=== PATIENT | male | born 1950 | race Asian ===

== ENCOUNTER 2021-10-18 17:24 | Inpatient (IN) | payer MEDICARE, OTHER ==
[~2021-10-18] VITALS: Ht 162.6 cm; Wt 59.0 kg
--- NOTE | 2021-10-18 17:35 | NUR ---
PT [id number] FR [facility] C/O SOB LOW 80S SATURATION. AT THIS TIME PT SATTING 92% ON 7LPM, TACHY AT 140. TRACH PATENT AND INTACT. GTUBE PATENT AND INTACT. PT AWAKE A/OX3. SAFETY MEASURES IN PLACE. RT AT PT'S BEDSIDE
--- NOTE | 2021-10-18 17:39 | NUR ---
COVID ANTIGEN AND PCR SWABS DONE AND SENT TO THE LAB
--- NOTE | 2021-10-18 17:39 | NUR ---
PHLEBATOMIST AT THE BEDSIDE
--- NOTE | 2021-10-18 17:39 | NUR ---
CHEST X-RAY TECH AT THE BEDSIDE
--- NOTE | 2021-10-18 17:40 | NUR ---
ALGORITHM DESIGN ENGINEER RFA #20G S/L; PATENT AND INTACT. INITIATED LAC #18G S/L; PATENT AND INTACT.
--- NOTE | 2021-10-18 17:41 | NUR ---
RECTAL TEMP 104.1. COOLING MEASURES IN PLACE. NOTIFIED FELICIANO ALEX
[2021-10-18] MEDS ORDERED: ACETAMINOPHEN 650 MG/SUPP.RECT RC ONE ×3 (17:44→18:00)
--- NOTE | 2021-10-18 17:45 | NUR ---
RT AT PT'S BEDSIDE. PT PUT PT MECH VENT SETTINGS TOLERATING AT 99%. TV 450. PEAK 6. FIO2 40%. PEEP 5 PER FELICIANO ALEX NOT TO PUT PT ON TRACH CUFF.
--- NOTE | 2021-10-18 17:45 | NUR ---
RT PATIENT ARRIVED TO ER VIA BVM FROM TRANSPORT TEAM. PATIENT PLACED ON VENT PER MD WIGGINS ORDER WITH FOLLOWING SETTINGS: AC 16, VT 450, 40%, +5. RT INFORMED MD THAT PATIENT IS CURRENTLY ON A CUFFLESS TRACH. PER MD, NO NEED TO CHANGE TO CUFFED TRACH AT THIS TIME. ROXI CASTANEDA NOTIFIED AND AWARE. SPO2 92%, HR 129. WILL CONTINUE TO MONITOR THE PATIENT. Addendum: 10/18/21 at 1824 by ELI SNOWDEN RT Amended: Links added.
[2021-10-18 17:51] LABS: BASOPHILS % (AUTO) 0.1 % (0.0-2.0); EOSINOPHILS % (AUTO) 0.6 % (0.0-6.0); HEMATOCRIT 30 % (39-51); HEMOGLOBIN 9.3 g/dL (13.5-17.5); LYMPHOCYTES # (AUTO) 0.2 K/uL (0.8-4.8); LYMPHOCYTES % (AUTO) 2.4 % (20.0-44.0); MEAN CORPUSCULAR HGB CONC 31 g/dl (31.0-36.0); MEAN CORPUSCULAR VOLUME 93 fL (80-96); MONOCYTES # (AUTO) 0.2 K/uL (0.1-1.30); MONOCYTES % (AUTO) 2.5 % (2.0-12.0); NEUTROPHILS # (AUTO) 7.1 K/uL (1.8-8.9); NEUTROPHILS % (AUTO) 94.4 % (43.0-81.0); PLATELET COUNT (AUTO) 312 K/uL (150-450); RED BLOOD CELL COUNT(AUTO) 3.25 MIL/uL (4.5-6.0); WHITE BLOOD COUNT (AUTO) 7.5 K/uL (4.3-11.0)
[2021-10-18] MEDS ORDERED: PIPERACILLIN /TAZOBACTAM 3.375 G VIAL IV ONE ×2 (17:55→22:35)
[2021-10-18] MEDS ORDERED: VANCOMYCIN 1 GM in IV D5W 250 ML IV ONE (18:00)
[2021-10-18] MEDS ORDERED: IV NS 0.9% 1,000 ML BAG IV ONE (18:00)
[2021-10-18] MEDS ORDERED: PIPERACILLIN /TAZOBACTAM 3.375 G in IV D5W 50 ML IV ONE (18:00)
[2021-10-18 18:03] LABS: CALCIUM, SERUM 8.7 mg/dL (8.5-10.1); CARBON DIOXIDE 25 mmol/L (21-32); CHLORIDE 112 mmol/L (98-107); CREATININE 1.7 mg/dL (0.6-1.3); GLUCOSE 294 mg/dL (74-106); POTASSIUM 3.7 mmol/L (3.5-5.1); SODIUM SERUM 155 mmol/L (136-145); UREA NITROGEN, BLOOD 58 mg/dL (7-18)
[2021-10-18 18:09] LABS: ALANINE AMINOTRANSFERASE 19 U/L (12-78); ALBUMIN 2.3 g/dL (3.4-5.0); ALKALINE PHOSPHATASE 165 U/L (46-116); ASPARTATE AMINOTRANSFERASE 22 U/L (15-37); BILIRUBIN,DIRECT 0.3 mg/dL (0.0-0.2); BILIRUBIN,TOTAL 0.9 mg/dL (0.2-1.0); TOTAL PROTEIN, SERUM 8.4 g/dL (6.4-8.2)
--- NOTE | 2021-10-18 18:12 | NUR ---
DR. WIGGINS GAVE ORDERS FOR F/C. INITIATED F/C 16FR WITH URINE OUTPUT; PATENT AND INTACT. URINE COLLECTED AND SENT TO LAB
--- NOTE | 2021-10-18 18:22 | NUR ---
LACTIC ACID 10.3; FELICIANO ALEX NOTIFIED
--- NOTE | 2021-10-18 18:48 | NUR ---
PAGED [facility].
[2021-10-18] MEDS ORDERED: MAG HYDROX/AL HYDROX/SIMETH 30 ML UDC PO PRN (21:00)
[2021-10-18] MEDS ORDERED: IV NS 0.9% 1,000 ML IV PRN (21:00)
[2021-10-18] MEDS ORDERED: MAGNESIUM HYDROXIDE 30 ML UDC PO PRN (21:00)
[2021-10-18] MEDS ORDERED: Z GUARD REMEDY 4 OZ OINT TP PRN (21:00)
[2021-10-18] MEDS ORDERED: ONDANSETRON HCL/PF 4 MG/2 ML VIAL IVP PRN (21:00)
--- NOTE | 2021-10-18 21:19 | NUR ---
FRANKI 109
--- NOTE | 2021-10-18 21:20 | NUR ---
US TECH AT PT'S BEDSIDE
[2021-10-18 21:24] LABS: BILIRUBIN,URINE NEGATIVE (NEGATIVE); COLOR,URINE YELLOW (YELLOW); LEUKOCYTE ESTERASE ,URINE TRACE (NEGATIVE); NITRITE, URINE NEGATIVE (NEGATIVE); PROTEIN,URINE 30 mg/dl (NEGATIVE); UGLUCOSE NEGATIVE (NEGATIVE)
[2021-10-18 21:30] LABS: BACTERIA,URINE Many /HPF (None Seen); SQUAMOUS EPITHELIAL CELL,UR Few /HPF (None Seen)
[2021-10-18] MEDS ORDERED: DEXTROSE 50%-WATER 50 ML DISP.SYRIN IV PRN (21:30)
--- NOTE | 2021-10-18 21:31 | NUR ---
RN NOTES CALLED ER TO GET ADMISSION REPORT. ABSORBER OPERATOR NOT YET AVAILABLE. WILL WAIT FOR CALLBACK
--- NOTE | 2021-10-18 21:41 | NUR ---
LACTIC ACID 7.5; [employer] NOTIFIED
--- NOTE | 2021-10-18 21:45 | NUR ---
RN NOTES RECEIVED ER ADMISSION REPORT FROM ROXI RABAGO. ALL PERTINENT ADMISSION INFO REGARDING PT NOTED. WILL WAIT FOR PT TO BE TRANSFERRED TO UNIT AND ADDRESS NEEDS ACCORDINGLY. SIGNAL OPERATOR TECHNICAL MADE AWARE.
--- NOTE | 2021-10-18 21:46 | NUR ---
REPORT GIVEN TO ANJEL DIANE FOR LAURA
[2021-10-18] MEDS ORDERED: HEPARIN SODIUM, PORCINE 5000 UNITS/1 ML VIAL ONE (21:48)
[2021-10-18 21:51] LABS: IRON, SERUM 19 ug/dl (50-175); TOTAL IRON BINDING CAPACITY 192 ug/dl (250-450)
[2021-10-18] MEDS: HEPARIN SODIUM, PORCINE 5000 UNITS/1 ML VIAL SQ SCH (21:51)
--- NOTE | 2021-10-18 22:15 | NUR ---
RN NOTES RECEIVED PT FROM ER VIA LUISARGRISEL ACCOMPANIED BY 2 ER STAFF AND TRANSFERRED TO BED VIA 2 PERSON ASSIST. PT IS A/OX2; NON VERBAL; PT ON MECHANICAL VENT; SETTINGS PRESCRIBED WITH RESPIRATIONS EVEN AND UNLABORED. COMPREHENSIVE PHYSICAL ASSESSMENT AND PATIENT CARE DONE. CALL LIGHT WITHIN REACH, SAFETY MEASURES AND ISOLATION PRECAUTION IN PLACE, WILL CONTINUE MONITOR AND ASSESS THROUGHOUT THE SHIFT. WILL CARRY OUT MD ORDERS ACCORDINGLY. COUNSELOR EDUCATION PROFESSOR MADE AWARE.
--- NOTE | 2021-10-18 22:15 | NUR ---
PT TRANSFERED PER ACLS PROTOCOL
--- NOTE | 2021-10-18 23:00 | NUR ---
RN NOTES NOTED PT'S TEMP IS AT 102@2300 (INITIAL V/S UPON ADMISSION); PRN MEDICATION WILL BE GIVEN AND COOLING MEASURES. ENDO TECH MADE AWARE. WILL CONTINUE TO MONITOR AND ASSESS THROUGHOUT THE SHIFT. Addendum: 10/19/21 at 0043 by JOSE MUNOZ RN [id number] PT'S TEMP WENT DOWN TO 100.8; WILL CONTINUE TO PROVIDE COOLING MEASURES AND TO ASSESS FOR ANY CHANGES. AT THE SAME TIME NOTED PT'S BP @83/35. NOTIFIED AVERY (CHERYL CALIX NP) AND SECURED ORDER FOR 500ML NS BOLUS AND INCREASED CURRENT IVF OF NS FROM 75/CCHR TO 100CC/HR. ENDO TECH MADE AWARE. WILL CARRY OUT MD ORDER.
[2021-10-18 23:02] VITALS: BP 102/68
[2021-10-18] MEDS: ZOSYN IVPB 3.375 G in IV D5W 50ml IV SCH (23:34)
[2021-10-18] MEDS: ACETAMINOPHEN 325 MG TABLET PO PRN (23:34)
[2021-10-19] VITALS (43 sets, daily range): BP systolic 75–136; BP diastolic 29–90
[2021-10-19] MEDS ORDERED: IV NS 0.9% 1,000 ML IV PRN (00:29)
[2021-10-19] MEDS ORDERED: IV NS 0.9% 500 ML IV ONE (00:30)
[2021-10-19] MEDS: BLOOD SUGAR DIAGNOSTIC 1 EACH STRIP IN SCH ×6 (00:50→21:18)
[2021-10-19] MEDS: INSULIN REGULAR, HUMAN 100 UNIT/ML 3 ML VIAL SQ PRN ×5 (00:59→21:20)
--- NOTE | 2021-10-19 05:23 | NUR ---
RN NOTES CALLED SUZY MERAZ @ [phone] S/W SHANI VERIFIED FOR PT'S CURRENT FEEDING. SHE SAID ITS GLUCERNA 1.5@55CC/HR. RN ACKNOWLEDGED. COLD MILL SUPERVISOR MADE AWARE. AZUCENA ALEX NOTIFIED (CHERYL CALIX NP) ABOUT DIET INFO FROM FACILITY. AWAITING RESPONSE. Addendum: 10/19/21 at 0540 by JOSE MUNOZ RN -AZUCENA ALEX (FIORELLA CALIX) ORDERED TUBE FEEDING OF GLUCERNA 1.2 @55CC/HR. COLD MILL SUPERVISOR MADE AWARE.
[2021-10-19] MEDS ORDERED: PIPERACILLIN /TAZOBACTAM 3.375 G VIAL IV ONE (05:28)
[2021-10-19 05:31] LABS: ABG BASE EXCESS 0.5 mmol/L; ABG OXYGEN SATURATION 88.7 % (92.0-98.5); ABG PCO2 30.9 mmHg (35.0-45.0); ABG PH 7.498 (7.350-7.450); ABG PO2 57.7 mmHg (75.0-100.0); COHb 0.3 % (0.5-1.5); MetHb 0.1 % (0.0-1.5); O2Hb 88.3 % (94.0-97.0); SITE, ABG Right Brachial; VENT MODE, BG AC 16 450 40% +5
[2021-10-19] MEDS: ZOSYN IVPB 3.375 G in IV D5W 50ml IV SCH ×3 (05:55→16:57)
[2021-10-19] MEDS ORDERED: GLUCERNA 1.5 1,000 ML BOTTLE GT PRN (06:00)
--- NOTE | 2021-10-19 06:00 | NUR ---
RN NOTES ABG RESULT SENT TO AZUCENA ALEX (FIORELLA CALIX) ADVISED THAT PER RT RECOMMENDATION PER ABG RESULT PT WILL BENEFITED IF FIO2 INCREASED FROM 40 TO 50%. AZUCENA ALEX ACKNOWLEDGED AND AGREED. WILL INFORM RT TO MAKE CHANGES. CHASSIS WIRER MADE AWARE.
--- NOTE | 2021-10-19 07:06 | NUR ---
RN CLOSING NOTE: PATIENT REMAINS IN ROOM IN NO SIGNS OF RESPIRATORY DISTRESS, PATIENT STILL ON MECH VENT; SETTINGS PRESCRIBED;TOLERATING WELL SATURATING @ >92% SP02. BP STILL RUNNING LOW BUT >90 SBP WILL NEED TO KEEP ON MONITOR. SAFETY MEASURES IMPLEMENTED, BED IN LOWEST POSITION, LOCKED, SIDE RAILS UP, CALL LIGHT WITHIN REACH. ALL NEEDS AND ORDERS ADDRESSED DURING THE SHIFT. IV ACCESS MAINTAINED INTACT, SECURED AND FLUSHING WELL. ALL DUE MEDS GIVEN ORDERED & SCHEDULED ; PATIENT TOLERATED WELL. PATIENT KEPT CLEAN AND COMFORTABLE WITHIN THE SHIFT. PATIENT ENDORSED TO INCOMING SHIFT RN WITH STABLE VITAL SIGN AND FOR CONTINUITY OF CARE.
--- NOTE | 2021-10-19 07:46 | NUR ---
FRANKI RN NOTE PATIENT IN BED,WITH TRACH TO VENT SETTING ORDERED, SATURATION 96% AT THIS TIME,ON TELE MONITOR SR 88, LT AC HL INTACT ON IVF ORDERED, WILL CONT TO MONITOR WITH SLIGHT SOB NOTED, BED IN LOWEST AND LOCKED POSITION , CALL LIGHT WITHIN REACH
--- NOTE | 2021-10-19 08:30 | NUR ---
FRANKI RN NOTE RT AT BEDSIDE ,TRACH CHANGED PATIENT BECOME EASILY DESATURATION 88%
[2021-10-19 08:48] LABS: ALBUMIN 1.6 g/dL (3.4-5.0); BILIRUBIN,TOTAL 0.8 mg/dL (0.2-1.0); CREATININE 1.2 mg/dL (0.6-1.3); MAGNESIUM 2.3 mg/dL (1.8-2.4); PHOSPHORUS 2.9 mg/dL (2.5-4.9); POTASSIUM 3.1 mmol/L (3.5-5.1); TOTAL PROTEIN, SERUM 5.9 g/dL (6.4-8.2)
[2021-10-19] MEDS: PANTOPRAZOLE 40 MG VIAL IV SCH (08:49)
[2021-10-19] MEDS: LEVOTHYROXINE SODIUM 100 MCG TABLET PO SCH (08:49)
--- NOTE | 2021-10-19 08:55 | NUR ---
RT NOTE PT TRACH CHANGED FROM PORTEX 7 CUFFLESS TO PORTEX 7 CUFFED WITH PER MD PELMIKO ORDER, WITH NO COMPLICATIONS NOTED. RN NIRALI BEDSIDE THROUGHOUT PROCEDURE. SX PRE / POST PROCEDURE. NO BLEEDING NOTED. BILATERAL CHEST RISE AND BREATH SOUNDS NOTED. MAINTENANCE PIPEFITTER DONE. AMBU BAG BEDSIDE. NO SOB NOTED AT THIS TIME.
[2021-10-19 08:56] LABS: THYROID STIMULATING HORMONE 12.907 uIU/mL (0.358-3.74)
[2021-10-19] MEDS: HEPARIN SODIUM, PORCINE 5000 UNITS/1 ML VIAL SQ SCH (09:00)
[2021-10-19 09:16] LABS: EOSINOPHILS % (AUTO) 0.2 % (0.0-6.0); HEMATOCRIT 21 % (39-51); LYMPHOCYTES # (AUTO) 0.2 K/uL (0.8-4.8); LYMPHOCYTES % (AUTO) 2.4 % (20.0-44.0); MEAN CORPUSCULAR HGB CONC 32 g/dl (31.0-36.0); MEAN CORPUSCULAR VOLUME 93 fL (80-96); MONOCYTES # (AUTO) 0.2 K/uL (0.1-1.30); MONOCYTES % (AUTO) 1.7 % (2.0-12.0); NEUTROPHILS # (AUTO) 8.7 K/uL (1.8-8.9); NEUTROPHILS % (AUTO) 95.7 % (43.0-81.0); PLATELET COUNT (AUTO) 225 K/uL (150-450); RED BLOOD CELL COUNT(AUTO) 2.24 MIL/uL (4.5-6.0); WHITE BLOOD COUNT (AUTO) 9.1 K/uL (4.3-11.0)
[2021-10-19] MEDS ORDERED: HYDR-3973 GT (09:37)
[2021-10-19] MEDS ORDERED: NUT.237L31 GT (09:37)
[2021-10-19] MEDS ORDERED: OXYC10TA49 GT (09:37)
[2021-10-19] MEDS ORDERED: POLY17PO4 PO (09:37)
[2021-10-19] MEDS ORDERED: CHLO473M3 MM (09:37)
[2021-10-19] MEDS ORDERED: LEVO25TA7 GT (09:37)
[2021-10-19] MEDS ORDERED: CIPR7.5D9 INH (09:37)
[2021-10-19] MEDS ORDERED: IPRA4AER IH (09:37)
--- NOTE | 2021-10-19 09:49 | NUR ---
FRANKI DIANE NOTEV TRACH SUCTION BLOODY TINGE DRAINAGE NOTED WILL REPORT TO Addendum: 10/19/21 at 0952 by NIRALI THOMAS RN WILL HOLD HEPARIN AT THIS TIME DE DUE TU BLOODY DRAINAGE NOTED FROM TRACH WHILE SUCTION , WILL REPORT TO
[2021-10-19 09:59] LABS: HEMOGLOBIN 6.6 g/dL (13.5-17.5)
--- NOTE | 2021-10-19 10:00 | NUR ---
FRANKI RN NOTE DR CHAVEZ AT BEDSIDE AWARE THAT PATIENT HAS DRAINAGE FROM TRACH OK TO HOLD HEPARIN THIS TIME ALSO REPORTED TO DR CHAVEZ THAT AGITATED AND TRYING TO REMOVE TRACH AND ALL LINES ALSO C\O PAIN .REPORTED TO DR CHAVEZ STATED THAT WILL CHECK IT OUT
--- NOTE | 2021-10-19 10:04 | NUR ---
FRANKI RN NOTE OT AT BEDSIDE OT EVAL DONE
--- NOTE | 2021-10-19 10:13 | NUR ---
FRANKI RN NOTE NOTED PATIENT BECOME AGITATED AND TRYING TO REMOVE TRACH AND IV LINES AND ALL OTHER TUBES , FACE TO FACE ASSESSMENT DONE , CALLED TO DR CHILANGO YANES TO PLACE SOFT RESTRAIN, WILL CALL DAUGHTER TO INFORM
[2021-10-19] MEDS: IV D5W 1,000 ML IV PRN (10:22)
[2021-10-19] MEDS: LORAZEPAM INJ 2 MG/ML VIAL IVP PRN ×2 (10:29→19:41)
--- NOTE | 2021-10-19 10:31 | NUR ---
nan rn note still agitated and trying to remove trach ,Ativan 1 mg ivp given, bp 90/52 saturation 98% ,will monitor closely
--- NOTE | 2021-10-19 10:31 | NUR ---
FRANKI rnnote per dr varma ok to do i unit prbc and [place] 1 tab and Tylenol prn also spoke with daughter nelson,consent obtained for blood transfusion, dr varma aware that na 156
--- NOTE | 2021-10-19 10:56 | NUR ---
nan rn note patint agitated ad remove trach and iv lines dr avani jack ok to place soft restraini spoke with ambrosio dunne to place will f\u Addendum: 10/19/21 at 1725 by NIRALI THOMAS RN [id number] agitated and trying to remove trach and iv lines dr avani dunne to place soft restraint, spoke with daughter nelson ok to place ,will f\u
[2021-10-19] MEDS ORDERED: POLYETHYLENE GLYCOL 3350 17 GM POWD.PACK PO PRN (11:00)
[2021-10-19] MEDS: GLUCERNA 1.2 1,000 ML BOTTLE GT PRN (11:03)
[2021-10-19] MEDS ORDERED: HYDROCODONE/APAP 10/325MG TABLET PO ONE (11:30)
[2021-10-19] MEDS: VANCOMYCIN 0.75 GM in IV D5W 250 ML IV SCH ×2 (11:32→23:50)
[2021-10-19] MEDS: ACETAMINOPHEN 650 MG/20.3 ML UDC NG PRN ×2 (11:34→18:19)
--- NOTE | 2021-10-19 12:12 | NUR ---
nan rn note dr varma notified that bp Addendum: 10/19/21 at 1228 by NIRALI THOMAS RN per dr avani kenney aware that bp Addendum: 10/19/21 at 1309 by NIRALI THOMAS RN BP
--- NOTE | 2021-10-19 12:38 | NUR ---
FILM SORTER NOTE 2 ED ECHO DONE, REPORTED TO DR CHILANGO Elizalde 99.9 TYLENOL VIA G TUBE GIVEN Addendum: 10/19/21 at 1301 by NIRALI THOMAS RN DR CHILANGO YANES TO START G TUBE FEEDIN GAT 55 ML PER AND IVF AT150 ML PER HOUR WILL F\U
--- NOTE | 2021-10-19 13:58 | NUR ---
nan rn note h called blood bank no blood ready yet will f\u
[2021-10-19] MEDS: SOD FERRIC GLUC 125 MG in IV NS 0.9% 100 ML IV SCH (14:01)
--- NOTE | 2021-10-19 14:38 | NUR ---
CLINICAL THERAPIST NOTE DR CHAO MOLD SHIFTER AT BEDSIDE UPDATED PATIENT CONDITION, AWARE THAT NA 156 OK TO CONT D5W IVF ORDERED Addendum: 10/19/21 at 1450 by NIRALI THOMAS RN STOOL FOR OB COLLECTED
--- NOTE | 2021-10-19 15:00 | NUR ---
FRANKI RN NOTE NEW HL INSERTED ON RT WRIST MYKE 18 WITH GOOD BLOOD RETURN
--- NOTE | 2021-10-19 15:46 | NUR ---
FRANKI RN NOTE CALLED TO LAB NO BLOOD READY YET
[2021-10-19 15:48] LABS: BAND % (MANUAL) 28 % (0.0-5.0); LYMPHOCYTES % (MANUAL) 6 % (16-48); NEUTROPHILS % (MANUAL) 66 (42-76)
--- NOTE | 2021-10-19 15:58 | NUR ---
BELT AND LINK ASSEMBLY SUPERVISOR NOTE CALLED TO DR KEE RN EDI PROGRAMMER ANALYST NOTIFIED THAT BP 74/42 ON ARM AND ON LEG 82/36, ORDERED TO TRANSFER TO ICU WITH LEVOPHED DRIP ,ORDER CARRIED OUT, CALLED TO CHARGE NURSE NOTIFIED THAT PATINT NEED TO TRANSFER TO ICU ,WILL F\U
[2021-10-19] MEDS ORDERED: NOREPINEPHRINE 8 MG in IV NS 0.9% 242 ML IV PRN (16:00)
--- NOTE | 2021-10-19 16:30 | NUR ---
nan rn note transferred to icu as ordered ,report given to william ,transferred by acls protocol
--- NOTE | 2021-10-19 16:40 | NUR ---
RT NOTE PT TRANSFERRED TO ICU WITH NO COMPLICATIONS.
--- NOTE | 2021-10-19 16:45 | NUR ---
curriculum developer note called daughter nelson notified that patient transferred to icu
[2021-10-19] MEDS: CHLORHEXIDINE GLUCONATE 15 ML UDC MM SCH (16:57)
--- NOTE | 2021-10-19 17:00 | NUR ---
RN NOTES PATIENT TRANSFERRED TO THE ICU ON DX OF HYPOTENSION 88/49, P-80, LEVOPHED WAS ORDERED VIA RN MELINA, DAPHNE ADMINISTER PER PROTOCOL. BS-161 MG/DL COVERAGE GIVEN, RUNNING GLUCERNA 1.2 @40 ML/HR INTACT, VIA GT, PATIENT TRACHEA /VENT DEPENDENT, SOFT RESTRAIN BILATERAL WRIST RECHECKED CIRCULATION. HEADLEY DRAINING VIA GRAVITY.
[2021-10-19] MEDS: NOREPINEPHRINE 8 MG in IV NS 0.9% 242 ML IV PRN (18:01)
--- NOTE | 2021-10-19 18:07 | NUR ---
rn notes started Levophed at this time0.1 mcg/kg/hr, bp 77/53, p-90, bs-161 mg/dl, t-98.3F, due medication administered, patient awake, talking sign language for pain. will follow up.
--- NOTE | 2021-10-19 18:20 | NUR ---
RN NOTES ADMINISTERED TYLENOL 650 MG VIA NG TUBE FOR PAIN, BS-161 MG/DL COVERAGE GIVEN. KEEP HOB ELEVATED FOR ASPIRATION PRECAUTION. INFUSING GLUCERNA @50 ML/HR TOLERATED GOAL IS 55CC/HR.
--- NOTE | 2021-10-19 19:00 | NUR ---
RN NOTE REPORT RECEIVED FROM ABDULLAHI DIANE, PATIENT IN BED, AO X 2-3, NON VERBAL BUT NODS HEAD. IN NO S/SX OF ACUTE DISTRESS AT THIS TIME. ON TRACH TO MECHANICAL VENT WITH SETTINGS PRESCRIBED, SATURATION AT 97%, ST ON THE MONITOR, HR IS 104. NOTED IV SITE AT R WRIST 18G, AND L AC 18G, BOTH PATENT AND FLUSHING WELL, NO S/S OF INFECTION OR INFILTRATION. NOTED GTUBE INTACT POSITIVE PLACEMENT NOTED, NO RESIDUAL, WITH TUBE FEEDING OF GLUCERNA AT 55 ML/HR. HEADLEY CATHETER CONNECTED TO URINE BAG IN PLACE, DRAINING TO A CLEAR, YELLOW URINE. B SOFT WRIST RESTRAINTS IN PLACE PER MD ORDER, SKIN AND CIRCULATION WAS CHECKED. SAFETY MEASURES IMPLEMENTED. PATIENT BED ALARM IS ON. HEAD OF BED ELEVATED. BED IS LOCKED, IN LOWEST POSITION AND SIDE RAILS UP. CALL LIGHT WITHIN REACH OF THE PATIENT. WILL CONTINUE TO MONITOR AND REASSESS FOR ANY CHANGES.
[2021-10-19 23:56] LABS: OCCULT BLOOD STOOL NEGATIVE (NEGATIVE)
[2021-10-20] VITALS (91 sets, daily range): BP systolic 70–141; BP diastolic 26–116
[2021-10-20] MEDS: IV D5W 1,000 ML IV PRN ×3 (00:10→18:04)
[2021-10-20] MEDS: ZOSYN IVPB 3.375 G in IV D5W 50ml IV SCH ×5 (00:29→23:18)
[2021-10-20] MEDS: BLOOD SUGAR DIAGNOSTIC 1 EACH STRIP IN SCH ×6 (01:21→20:26)
[2021-10-20] MEDS: INSULIN REGULAR, HUMAN 100 UNIT/ML 3 ML VIAL SQ PRN ×6 (01:23→20:37)
--- NOTE | 2021-10-20 04:00 | NUR ---
RN NOTE NOTED HR AT 160-170'S. PRN ATIVAN 1 MG ADMINISTERED. WILL CONTINUE TO MONITOR.
[2021-10-20] MEDS: LORAZEPAM INJ 2 MG/ML VIAL IVP PRN ×3 (04:01→20:15)
--- NOTE | 2021-10-20 04:30 | NUR ---
RN NOTE PT STILL ST ON THE MONITOR, HR AT 160-180'S. TEMP CHECKED 99.4. PRN TYLENOL 650 MG ADMINISTERED. WILL CONTINUE TO MONITOR.
--- NOTE | 2021-10-20 04:35 | NUR ---
RN NOTE PT NOW AFIB ON THE MONITOR WITH HR 160-180'S. DR CALIX WAS NOTIFIED. AWAITING MD CALL BACK. DIRECTOR OF FOOD AND NUTRITION SERVICES AWARE.
[2021-10-20] MEDS: ACETAMINOPHEN 325 MG TABLET PO PRN (04:38)
--- NOTE | 2021-10-20 04:40 | NUR ---
RN NOTE NO CALL BACK FROM DR CALIX, SECOND CALL MADE, VOICE MESSAGE LEFT. AWAITING CALL BACK. FOOD TECHNOLOGY TEACHER AWARE.
[2021-10-20 04:43] LABS: EOSINOPHILS % (AUTO) 1.9 % (0.0-6.0); HEMATOCRIT 24 % (39-51); HEMOGLOBIN 7.7 g/dL (13.5-17.5); LYMPHOCYTES # (AUTO) 0.1 K/uL (0.8-4.8); LYMPHOCYTES % (AUTO) 1.2 % (20.0-44.0); MEAN CORPUSCULAR HGB CONC 33 g/dl (31.0-36.0); MEAN CORPUSCULAR VOLUME 90 fL (80-96); MONOCYTES # (AUTO) 0.1 K/uL (0.1-1.30); MONOCYTES % (AUTO) 1.3 % (2.0-12.0); NEUTROPHILS # (AUTO) 9.7 K/uL (1.8-8.9); NEUTROPHILS % (AUTO) 95.6 % (43.0-81.0); PLATELET COUNT (AUTO) 225 K/uL (150-450); RED BLOOD CELL COUNT(AUTO) 2.62 MIL/uL (4.5-6.0); WHITE BLOOD COUNT (AUTO) 10.1 K/uL (4.3-11.0)
--- NOTE | 2021-10-20 04:47 | NUR ---
RN NOTE CALL BACK RECEIVED FROM DR CALIX, ORDERS RECEIVED TO DC LEVOPHED, START PT ON NEOSYNEPHRINE DRIP, AND AMIODARONE DRIP. ALTERNATIVE FINANCING SPECIALIST AWARE.
[2021-10-20] MEDS ORDERED: PHENYLEPHRINE 10 MG/ML VIAL ONE (04:57)
[2021-10-20] MEDS ORDERED: AMIODARONE 150 MG/3 ML VIAL IV ONE (04:58)
[2021-10-20] MEDS ORDERED: AMIODARONE 150 MG in IV D5W 100 ML IV ONE (05:00)
[2021-10-20] MEDS: PHENYLEPHRINE HCL IN 0.9% NACL 50 MG in PREMIX 1 EA IV PRN (05:16)
[2021-10-20 05:19] LABS: CALCIUM, SERUM 7.3 mg/dL (8.5-10.1); CARBON DIOXIDE 22 mmol/L (21-32); CREATININE 1.2 mg/dL (0.6-1.3); GLUCOSE 229 mg/dL (74-106); MAGNESIUM 2.3 mg/dL (1.8-2.4); PHOSPHORUS 2.3 mg/dL (2.5-4.9); UREA NITROGEN, BLOOD 25 mg/dL (7-18)
[2021-10-20] MEDS: AMIODARONE 450 MG in IV D5W 241 ML IV PRN ×2 (05:20→13:19)
[2021-10-20 05:29] LABS: CHLORIDE 114 mmol/L (98-107); SODIUM SERUM 148 mmol/L (136-145)
[2021-10-20 05:39] LABS: POTASSIUM 2.7 mmol/L (3.5-5.1)
--- NOTE | 2021-10-20 05:45 | NUR ---
RN NOTE TELEPHONE CALL FROM LAB RE: K LEVEL OF 2.7 FROM 3.[address] 10/19/21. [address] CALIX WAS NOTIFIED. ORDERS RECEIVED TO ADMINISTER POTASSIUM 20 MEQ IV, AND 40 MEQ VIA GT. CROP PRODUCTION ADVISOR ED AWARE
[2021-10-20] MEDS: POTASSIUM CL. PREMIX PERIPHER. 50 ML IV SCH ×2 (06:27→07:46)
[2021-10-20] MEDS ORDERED: POTASSIUM CHLORIDE 20 MEQ POWDER PACKET GT ONE (06:30)
[2021-10-20] MEDS: LEVOTHYROXINE SODIUM 100 MCG TABLET PO SCH (07:46)
--- NOTE | 2021-10-20 09:16 | NUR ---
Patient converted to sinus rhytm from 9:12-9:15 with pvc/pac
[2021-10-20] MEDS: PANTOPRAZOLE 40 MG VIAL IV SCH (09:17)
[2021-10-20] MEDS: CHLORHEXIDINE GLUCONATE 15 ML UDC MM SCH ×2 (09:18→17:39)
[2021-10-20] MEDS: HYDROCORTISONE SOD SUCCINATE 100 MG/2 ML VIAL IV SCH ×3 (09:44→20:14)
[2021-10-20] MEDS ORDERED: NEUTRA PHOS 1 POWD.PACKET PO ONE (10:00)
--- NOTE | 2021-10-20 11:58 | NUR ---
ET TUBE SECRETIONS COLLECTED PER ASSEMBLER FOR PULLER OVER MACHINE ORDERS.
[2021-10-20] MEDS: VANCOMYCIN 0.75 GM in IV D5W 250 ML IV SCH ×2 (12:01→22:09)
--- NOTE | 2021-10-20 12:01 | NUR ---
PEEP CHANGED TO 0 BY RT PER MD ORDERS
[2021-10-20 14:31] LABS: BILIRUBIN,DIRECT 0.2 mg/dL (0.0-0.2)
[2021-10-20] MEDS: SOD FERRIC GLUC 125 MG in IV NS 0.9% 100 ML IV SCH (16:27)
[2021-10-20] MEDS: GLUCERNA 1.2 1,000 ML BOTTLE GT PRN (18:17)
--- NOTE | 2021-10-20 19:13 | NUR ---
DAIRY CHEMIST CLOSING NOTES Patient is responsive to verbal and physical stimuli. Patient is on mechanical ventilator ac 16, tidal volume of 450 fi02 50%and peep of 0.Patient running dada at 0.6 mcg and amio at 0.5 mg. Tele monitor showing sinus rhythm with HR of 79BPM. Glucerna running at 55 cc/hour via g tube rehana well. Askew cath intact and hanging to gravity with clear yellow urine and output of 1700 cc during shift. Endorsed to next shift.
--- NOTE | 2021-10-20 19:24 | NUR ---
RN NOTE REPORT RECEIVED FROM CHERYL DIANE, PATIENT IN BED, AO X 2-3, NON VERBAL BUT NODS HEAD. IN NO S/SX OF ACUTE DISTRESS AT THIS TIME. ON TRACH TO MECHANICAL VENT WITH SETTINGS PRESCRIBED, SATURATION AT 97%, SR ON THE MONITOR, HR IS 84. NOTED IV SITE AT L AC 18G AND L WRIST 20G, BOTH PATENT AND FLUSHING WELL, NO S/S OF INFECTION OR INFILTRATION WITH AMIODARONE DRIP INFUSING AT 0.5 MG/MIN, NEOSYNEPHRINE AT 0.6 MCG/KG/MIN, AND D5W AT 150 ML/HR. NOTED GTUBE INTACT POSITIVE PLACEMENT NOTED, NO RESIDUAL, WITH TUBE FEEDING OF GLUCERNA AT 55 ML/HR. HEADLEY CATHETER CONNECTED TO URINE BAG IN PLACE, DRAINING TO A CLEAR, YELLOW URINE. B SOFT WRIST RESTRAINTS IN PLACE PER MD ORDER, SKIN AND CIRCULATION WAS CHECKED. SAFETY MEASURES IMPLEMENTED. PATIENT BED ALARM IS ON. HEAD OF BED ELEVATED. BED IS LOCKED, IN LOWEST POSITION AND SIDE RAILS UP. CALL LIGHT WITHIN REACH OF THE PATIENT. WILL CONTINUE TO MONITOR AND REASSESS FOR ANY CHANGES.
[2021-10-21] VITALS (83 sets, daily range): BP systolic 86–131; BP diastolic 19–88
[2021-10-21] MEDS: BLOOD SUGAR DIAGNOSTIC 1 EACH STRIP IN SCH ×6 (00:37→21:59)
[2021-10-21] MEDS: INSULIN REGULAR, HUMAN 100 UNIT/ML 3 ML VIAL SQ PRN ×6 (00:38→22:01)
[2021-10-21] MEDS: AMIODARONE 450 MG in IV D5W 241 ML IV PRN (02:25)
[2021-10-21] MEDS: IV D5W 1,000 ML IV PRN ×3 (04:19→18:30)
[2021-10-21] MEDS: HYDROCORTISONE SOD SUCCINATE 100 MG/2 ML VIAL IV SCH ×3 (04:47→21:31)
[2021-10-21] MEDS: ZOSYN IVPB 3.375 G in IV D5W 50ml IV SCH ×4 (05:07→23:09)
[2021-10-21] MEDS: PHENYLEPHRINE HCL IN 0.9% NACL 50 MG in PREMIX 1 EA IV PRN (05:59)
[2021-10-21 06:44] LABS: HEMATOCRIT 23 % (39-51); HEMOGLOBIN 7.2 g/dL (13.5-17.5); LYMPHOCYTES # (AUTO) 0.1 K/uL (0.8-4.8); LYMPHOCYTES % (AUTO) 0.6 % (20.0-44.0); MEAN CORPUSCULAR HGB CONC 32 g/dl (31.0-36.0); MEAN CORPUSCULAR VOLUME 90 fL (80-96); MONOCYTES # (AUTO) 0.2 K/uL (0.1-1.30); MONOCYTES % (AUTO) 1.1 % (2.0-12.0); NEUTROPHILS # (AUTO) 14.6 K/uL (1.8-8.9); NEUTROPHILS % (AUTO) 98.3 % (43.0-81.0); PLATELET COUNT (AUTO) 230 K/uL (150-450); RED BLOOD CELL COUNT(AUTO) 2.52 MIL/uL (4.5-6.0); WHITE BLOOD COUNT (AUTO) 14.9 K/uL (4.3-11.0)
[2021-10-21 06:57] LABS: ALANINE AMINOTRANSFERASE 15 U/L (12-78); ALKALINE PHOSPHATASE 100 U/L (46-116); ASPARTATE AMINOTRANSFERASE 12 U/L (15-37); BILIRUBIN,TOTAL 0.4 mg/dL (0.2-1.0); CALCIUM, SERUM 7.8 mg/dL (8.5-10.1); CARBON DIOXIDE 25 mmol/L (21-32); CHLORIDE 113 mmol/L (98-107); CREATININE 1.1 mg/dL (0.6-1.3); GLUCOSE 291 mg/dL (74-106); MAGNESIUM 2.4 mg/dL (1.8-2.4); PHOSPHORUS 2.7 mg/dL (2.5-4.9); POTASSIUM 3.3 mmol/L (3.5-5.1); SODIUM SERUM 147 mmol/L (136-145); UREA NITROGEN, BLOOD 15 mg/dL (7-18)
[2021-10-21 07:06] LABS: ALBUMIN 1.4 g/dL (3.4-5.0)
--- NOTE | 2021-10-21 07:07 | NUR ---
ROXI NOTE TELEPHONE CALL FROM [facility], RELAYED CRITICAL LAB VALUE OF 1.4 ALBUMIN Addendum: 10/21/21 at 0714 by MARGARITA CONCEPCION RN ENDORSED TO MAIKOL DIANE
--- NOTE | 2021-10-21 07:23 | NUR ---
PRODUCTION HARDENER OPENING NOTES Patient is responsive to verbal and physical stimuli. Patient is on mechanical ventilator ac 16, tidal volume of 450 fi02 50%and peep of 0.Patient running dada at 0.5 mcg. Tele monitor showing sinus rhythm with HR of 77 BPM. Glucerna running at 55 cc/hour via g tube rehana well. Askew cath intact and hanging to gravity.Will monitor.HOB kept elevated. Call light within reach.
[2021-10-21] MEDS ORDERED: POTASSIUM CHLORIDE 20 MEQ POWDER PACKET NG SCH (08:30)
[2021-10-21] MEDS: ACETAMINOPHEN 650 MG/20.3 ML UDC NG PRN ×2 (09:00→17:02)
--- NOTE | 2021-10-21 09:00 | NUR ---
Patient noted with gastric residual of 240 cc. feeding held md aware.
[2021-10-21] MEDS: CHLORHEXIDINE GLUCONATE 15 ML UDC MM SCH ×2 (09:04→17:07)
[2021-10-21] MEDS: AMIODARONE HCL 200 MG TABLET PO SCH ×3 (09:04→21:00)
[2021-10-21] MEDS: LEVOTHYROXINE SODIUM 100 MCG TABLET PO SCH (09:04)
[2021-10-21] MEDS: PANTOPRAZOLE 40 MG VIAL IV SCH (09:05)
[2021-10-21] MEDS: ALBUMIN 25% 25 GM in PREMIX 1 EA IV SCH ×2 (10:27→21:32)
[2021-10-21] MEDS: VANCOMYCIN 0.75 GM in IV D5W 250 ML IV SCH (11:53)
--- NOTE | 2021-10-21 12:30 | NUR ---
Residual rechecked and noted with 130 cc, continued to hold feeding.
[2021-10-21] MEDS ORDERED: HYDROCORTISONE SOD SUCCINATE 100 MG/2 ML VIAL IV SCH (13:00)
[2021-10-21] MEDS: LORAZEPAM INJ 2 MG/ML VIAL IVP PRN ×3 (14:08→23:10)
--- NOTE | 2021-10-21 16:30 | NUR ---
Residual rechecked and noted with 70 cc, restarted feeding at 20 cc/hour. ASSISTANT TEACHING PROFESSOR Pablo aware.
[2021-10-21] MEDS: SOD FERRIC GLUC 125 MG in IV NS 0.9% 100 ML IV SCH (16:38)
--- NOTE | 2021-10-21 17:00 | NUR ---
CODE STATUS CHANGED TO DNR PER DAUGHTER GENEVIEVE AND 'S REQUEST.
[2021-10-21] MEDS: GLUCERNA 1.2 1,000 ML BOTTLE GT PRN (18:30)
--- NOTE | 2021-10-21 19:16 | NUR ---
RN NOTE REPORT RECEIVED FROM CHERYL DIANE, PATIENT IN BED, AO X 1-2, NON VERBAL BUT NODS HEAD. IN NO S/SX OF ACUTE DISTRESS AT THIS TIME. ON TRACH TO MECHANICAL VENT WITH SETTINGS PRESCRIBED, SATURATION AT 100%, SR ON THE MONITOR, HR IS 76. NOTED IV SITE AT L AC 18G AND L WRIST 20G, BOTH PATENT AND FLUSHING WELL, NO S/S OF INFECTION OR INFILTRATION WITH NEOSYNEPHRINE INFUSING AT 0.6 MCG/KG/MIN, AND D5W AT 150 ML/HR. NOTED GTUBE INTACT POSITIVE PLACEMENT VERIFIED, 10 ML OF RESIDUAL NOTED, WITH TUBE FEEDING OF GLUCERNA AT 20 ML/HR. HEADLEY CATHETER CONNECTED TO URINE BAG IN PLACE, DRAINING TO A CLEAR, YELLOW OUTPUT. B SOFT WRIST RESTRAINTS IN PLACE PER MD ORDER, SKIN AND CIRCULATION WAS CHECKED. SAFETY MEASURES IMPLEMENTED. PATIENT BED ALARM IS ON. HEAD OF BED ELEVATED. BED IS LOCKED, IN LOWEST POSITION AND SIDE RAILS UP. CALL LIGHT WITHIN REACH OF THE PATIENT. WILL CONTINUE TO MONITOR AND REASSESS FOR ANY CHANGES.
--- NOTE | 2021-10-21 19:20 | NUR ---
CRITICAL CARE NURSE SPECIALIST CLOSING NOTES Patient is responsive to verbal and physical stimuli. Patient is on mechanical ventilator ac 16, tidal volume of 450 fi02 40%and peep of 0.Patient running dada at 0.5 mcg. Tele monitor showing sinus rhythm with HR of 87 BPM. Glucerna running at 20 cc//hour.Askew cath intact and hanging to gravity with output of 1600 cc.HOB kept elevated. Call light within reach.Endorsed to next shift. Patient in stable condition.
--- NOTE | 2021-10-21 21:00 | NUR ---
RN NOTE AMIODARONE NON ADMINISTERED, PT SB ON THE MONITOR. FLOATLIGHT LOADING SUPERVISOR ED AWARE
[2021-10-21] MEDS: ACETAMINOPHEN 325 MG TABLET PO PRN (23:09)
[2021-10-22] VITALS (83 sets, daily range): BP systolic 75–153; BP diastolic 22–78
[2021-10-22] MEDS: BLOOD SUGAR DIAGNOSTIC 1 EACH STRIP IN SCH ×6 (00:52→21:48)
--- NOTE | 2021-10-22 01:00 | NUR ---
RN NOTE RESIDUAL RECHECKED, NO RESIDUAL NOTED. ASPIRATION PRECAUTIONS MAINTAINED, HOB KEPT ELEVATED. WILL CONT TO MONITOR
--- NOTE | 2021-10-22 01:00 | NUR ---
RN NOTE RECEIVED CARE OF PATIENT WHILE PATIENT IN BED, AO X 1-2, NON VERBAL BUT NODS HEAD TO NAME. PATIENT SHOWS NO SIGNS OF ACUTE DISTRESS AT THIS TIME. ON TRACH TO MECHANICAL VENT WITH SETTINGS PRESCRIBED, SATURATION AT 100%, SINUS AKILAH ON THE MONITOR, HR IS 52. NOTED IV SITE AT L AC 18G AND L WRIST 20G, BOTH PATENT AND FLUSHING WELL, NO S/S OF INFECTION OR INFILTRATION WITH NEOSYNEPHRINE INFUSING AT 0.6 MCG/KG/MIN, AND D5W AT 150 ML/HR. NOTED GTUBE INTACT POSITIVE PLACEMENT VERIFIED BY AUSCULTATION, 10 ML OF RESIDUAL NOTED, WITH TUBE FEEDING OF GLUCERNA AT 20 ML/HR. WILL CONTINUE TO MONITOR PATIENT FOR ANY CHANGES IN CONDITION.
[2021-10-22] MEDS: INSULIN REGULAR, HUMAN 100 UNIT/ML 3 ML VIAL SQ PRN ×5 (01:06→17:18)
--- NOTE | 2021-10-22 01:06 | NUR ---
RN NOTE REPORT GIVEN TO ISAAC DIANE FOR CONTINUATION OF CARE
--- NOTE | 2021-10-22 03:30 | NUR ---
RN NOTES RESIDUAL RECHECKED, NO RESIDUAL NOTED AT THIS TIME. ASPIRATION PRECAUTIONS MAINTAINED, HOB KEPT ELEVATED. WILL CONTINUE TO MONITOR
--- NOTE | 2021-10-22 03:50 | NUR ---
RN NOTES L WRIST G#20 IV ACCESS IS LEAKING, HAS BECOME COMPROMISED. L WRIST IV ACCESS DISCONTINUED. LAC G#28 IV ACCESS REMAINS PATENT WITH NO SIGNS OF INFILTRATION OR LEAKING. WILL CONTINUE TO MONITOR.
[2021-10-22] MEDS: IV D5W 1,000 ML IV PRN (05:13)
[2021-10-22] MEDS: ZOSYN IVPB 3.375 G in IV D5W 50ml IV SCH ×3 (05:26→19:21)
[2021-10-22] MEDS: HYDROCORTISONE SOD SUCCINATE 100 MG/2 ML VIAL IV SCH ×3 (05:26→21:48)
--- NOTE | 2021-10-22 07:05 | NUR ---
RN CLOSING NOTES WILL ENDORSE PATIENT WHILE PATIENT IN BED, AO X 1-2, NON VERBAL BUT NODS HEAD TO NAME. PATIENT SHOWS NO SIGNS OF ACUTE DISTRESS AT THIS TIME. ON TRACH TO MECHANICAL VENT WITH SETTINGS PRESCRIBED, SATURATION AT 100%, NSR ON THE MONITOR, HR IS 72. NOTED IV SITE AT L AC 18G PATENT AND FLUSHING WELL, NO S/S OF INFECTION OR INFILTRATION WITH NEOSYNEPHRINE INFUSING AT 0.5 MCG/KG/MIN, AND D5W AT 150 ML/HR. GTUBE REMAINS INTACT NO RESIDUAL NOTED AT THIS TIME. ALL SAFETY MEASURES IMPLEMENTED. WILL ENDORSE TO DAY SHIFT NURSE FOR LAURA.
[2021-10-22 07:23] LABS: HEMATOCRIT 21 % (39-51); LYMPHOCYTES # (AUTO) 0.2 K/uL (0.8-4.8); LYMPHOCYTES % (AUTO) 1.6 % (20.0-44.0); MEAN CORPUSCULAR HGB CONC 32 g/dl (31.0-36.0); MEAN CORPUSCULAR VOLUME 90 fL (80-96); MONOCYTES # (AUTO) 0.2 K/uL (0.1-1.30); MONOCYTES % (AUTO) 1.5 % (2.0-12.0); NEUTROPHILS # (AUTO) 12.8 K/uL (1.8-8.9); NEUTROPHILS % (AUTO) 96.9 % (43.0-81.0); PLATELET COUNT (AUTO) 221 K/uL (150-450); RED BLOOD CELL COUNT(AUTO) 2.33 MIL/uL (4.5-6.0); WHITE BLOOD COUNT (AUTO) 13.3 K/uL (4.3-11.0)
[2021-10-22] MEDS: LEVOTHYROXINE SODIUM 100 MCG TABLET PO SCH (07:41)
[2021-10-22] MEDS: PANTOPRAZOLE 40 MG VIAL IV SCH (07:42)
[2021-10-22] MEDS: CHLORHEXIDINE GLUCONATE 15 ML UDC MM SCH ×2 (07:42→16:22)
[2021-10-22] MEDS: AMIODARONE HCL 200 MG TABLET PO SCH ×3 (07:45→21:00)
[2021-10-22 07:55] LABS: CALCIUM, SERUM 8.2 mg/dL (8.5-10.1); POTASSIUM 3.1 mmol/L (3.5-5.1)
[2021-10-22 08:04] LABS: HEMOGLOBIN 6.7 g/dL (13.5-17.5)
[2021-10-22 09:06] LABS: ALBUMIN 2.2 g/dL (3.4-5.0); BILIRUBIN,TOTAL 0.5 mg/dL (0.2-1.0); CALCIUM, SERUM 7.9 mg/dL (8.5-10.1); MAGNESIUM 2.3 mg/dL (1.8-2.4); PHOSPHORUS 2.2 mg/dL (2.5-4.9); POTASSIUM 3.1 mmol/L (3.5-5.1); TOTAL PROTEIN, SERUM 6.2 g/dL (6.4-8.2)
[2021-10-22] MEDS ORDERED: NEUTRA PHOS 1 POWD.PACKET GT ONE ×2 (10:00→16:00)
[2021-10-22] MEDS ORDERED: POTASSIUM CHLORIDE 20 MEQ POWDER PACKET GT ONE (10:00)
[2021-10-22 13:32] LABS: LYMPHOCYTES % (MANUAL) 2 % (16-48); MONOCYTES % (MANUAL) 1 % (0-11.0); NEUTROPHILS % (MANUAL) 97 (42-76)
[2021-10-22] MEDS: IV 1/2NS 1000 ML 1,000 ML IV PRN (13:46)
[2021-10-22] MEDS: SOD FERRIC GLUC 125 MG in IV NS 0.9% 100 ML IV SCH (14:13)
[2021-10-22] MEDS ORDERED: K PHOS NEUTRAL 250 MG TABLET PO ONE (16:00)
[2021-10-22] MEDS ORDERED: NEUTRA PHOS 1 POWD.PACKET PO ONE (16:00)
[2021-10-22] MEDS: NOREPINEPHRINE 8 MG in IV NS 0.9% 242 ML IV PRN (16:24)
[2021-10-22] MEDS: PHENYLEPHRINE HCL IN 0.9% NACL 50 MG in PREMIX 1 EA IV PRN (17:00)
--- NOTE | 2021-10-22 17:01 | NUR ---
rn notes started administering one unit of blood at this time on right wrist peripheral iv access. patient stable, no acute respiratory distress, bp-106/48, p-55, r-16, o2-100%, t-97.9 F. patient trachea / vent dependent. will follow up.
--- NOTE | 2021-10-22 17:15 | NUR ---
rn notes patient stable, t-97.4F, p72, r-27, bp-112/72, no acute respiratory distress, patient stable, increased blood infusion 120ml/hr will follow up.
--- NOTE | 2021-10-22 18:00 | NUR ---
rn notes patient stable , t-98F, p58, r-16, bp 114/62, o2-98 %, continuing to infusion of blood.
--- NOTE | 2021-10-22 19:20 | NUR ---
RN NOTES FINISHED BLOOD TRANSFUSION AT THIS TIME, PATIENT STABLE , VSS, NO ACUTE RESPIRATORY DISTRESS. ASSIST TURN AND REPOSTION Q 2 HR, PATIENT PM CARE DONE ,SUCTION, MOUTH CARE, PATIENT LARGE AMOUNT OF ORAL SECRETION. . BS-173 MG/DL COVERAGE GIVEN, ALSO ADMINISTERED SCHEDULED MEDICATION. ENDORSED ONCOMING NURSE FOLLOW PLAN OF CARE.
--- NOTE | 2021-10-22 19:30 | NUR ---
RN OPENING NOTE RECEIVED CARE OF PATIENT WHILE PATIENT IN BED, AO X 1-2, NON VERBAL BUT NODS HEAD TO NAME. IN NO S/SX OF ACUTE DISTRESS AT THIS TIME. ON TRACH TO MECHANICAL VENT WITH SETTINGS PRESCRIBED, SATURATION AT 99%, SINUS AKILAH ON MONITOR, HR 65. NOTED GTUBE INTACT POSITIVE PLACEMENT VERIFIED, 1 ML OF RESIDUAL NOTED, WITH TUBE FEEDING OF GLUCERNA AT 20. NO SIGNIFICANT FINDINGS UPON INITIAL NURSING ASSESSMENTS. ALL SAFETY MEASURES PUT IN PLACE, HOB IN SEMI FOWLERS POSITION, BED IS LOCKED AND AT LOWEST POSITION, CALL LIGHT WITHIN REACH. WILL CONTINUE TO MONITOR PATIENT FOR ANY CHANGES IN HEALTH STATUS.
--- NOTE | 2021-10-22 22:05 | NUR ---
RN NOTES BLOOD GLUCOSE IS 130. NO INSULIN COVERAGE NEEDED PER SLIDING SCALE PROTOCOL. WILL CONTINUE TO MONITOR PATIENT
[2021-10-23] VITALS (65 sets, daily range): BP systolic 94–135; BP diastolic 51–76
[2021-10-23] MEDS: ZOSYN IVPB 3.375 G in IV D5W 50ml IV SCH ×4 (00:20→17:34)
[2021-10-23] MEDS: INSULIN REGULAR, HUMAN 100 UNIT/ML 3 ML VIAL SQ PRN ×5 (00:46→21:02)
--- NOTE | 2021-10-23 01:10 | NUR ---
RN NOTES RESIDUAL RECHECKED, NO RESIDUAL NOTED AT THIS TIME. ASPIRATION PRECAUTIONS MAINTAINED, HOB KEPT ELEVATED. WILL CONTINUE TO MONITOR
[2021-10-23] MEDS: BLOOD SUGAR DIAGNOSTIC 1 EACH STRIP IN SCH ×6 (01:11→20:56)
--- NOTE | 2021-10-23 02:38 | NUR ---
RN MISTAKE, NO HEMODIALYSIS FOR THIS PATIENT. PLEASE DISREGARD DATA PLACED AT 0237 IN THE INTAKE & OUTPUT SHEET. WRONG PATIENT.
[2021-10-23 05:04] LABS: BASOPHILS % (AUTO) 0.1 % (0.0-2.0); HEMATOCRIT 26 % (39-51); HEMOGLOBIN 8.6 g/dL (13.5-17.5); LYMPHOCYTES # (AUTO) 0.2 K/uL (0.8-4.8); LYMPHOCYTES % (AUTO) 1.7 % (20.0-44.0); MEAN CORPUSCULAR HGB CONC 33 g/dl (31.0-36.0); MEAN CORPUSCULAR VOLUME 88 fL (80-96); MONOCYTES # (AUTO) 0.2 K/uL (0.1-1.30); MONOCYTES % (AUTO) 2.4 % (2.0-12.0); NEUTROPHILS # (AUTO) 9.5 K/uL (1.8-8.9); NEUTROPHILS % (AUTO) 95.8 % (43.0-81.0); PLATELET COUNT (AUTO) 199 K/uL (150-450); RED BLOOD CELL COUNT(AUTO) 2.94 MIL/uL (4.5-6.0); WHITE BLOOD COUNT (AUTO) 9.9 K/uL (4.3-11.0)
[2021-10-23 05:36] LABS: CALCIUM, SERUM 7.8 mg/dL (8.5-10.1); CARBON DIOXIDE 28 mmol/L (21-32); CREATININE 0.9 mg/dL (0.6-1.3); GLUCOSE 162 mg/dL (74-106); MAGNESIUM 2.5 mg/dL (1.8-2.4); PHOSPHORUS 3.2 mg/dL (2.5-4.9); UREA NITROGEN, BLOOD 16 mg/dL (7-18)
[2021-10-23 05:43] LABS: CHLORIDE 108 mmol/L (98-107); SODIUM SERUM 145 mmol/L (136-145)
[2021-10-23] MEDS: HYDROCORTISONE SOD SUCCINATE 100 MG/2 ML VIAL IV SCH ×3 (05:46→20:56)
[2021-10-23 06:15] LABS: POTASSIUM 2.8 mmol/L (3.5-5.1)
--- NOTE | 2021-10-23 07:15 | NUR ---
RN CLOSING NOTES WILL ENDORSE PATIENT TO DAY SHIFT NURSE IN STABLE CONDITIONS. PATIENT REMAINS A/O X 1, NONVERBAL, ABLE TO COMMUNICATE NEEDS WITH FACIAL EXPRESSIONS. ALL PATIENT NEEDS MET. ALL MEDS GIVEN. NO SIGNIFICANT FINDINGS UPON ALL NURSING ASSESSMENTS. ALL SAFETY MEASURES IMPLEMENTED. WILL ENDORSE PATIENT TO DAY SHIFT NURSE FOR LAURA.
[2021-10-23] MEDS: LEVOTHYROXINE SODIUM 100 MCG TABLET PO SCH (07:52)
[2021-10-23] MEDS: CHLORHEXIDINE GLUCONATE 15 ML UDC MM SCH ×2 (07:53→17:10)
[2021-10-23] MEDS: AMIODARONE HCL 200 MG TABLET PO SCH ×3 (07:53→20:58)
[2021-10-23] MEDS: GLUCERNA 1.2 1,000 ML BOTTLE GT PRN (08:00)
--- NOTE | 2021-10-23 08:00 | NUR ---
rn notes Received patient awake no acut respiratory distress. afebrile, hr 69on bedside monitor. infusing dada 0.05 mcg/kg/hr, vvs, patient has lots of oral recreation, drooling all the time. running Glucerna @ 20ml/hr, no residual, Askew draining light yellow output. assist turn and reposition q 2 hr. rechecked restrain circulation bilateral wrists. will follow up.
[2021-10-23] MEDS: IV 1/2NS 1000 ML 1,000 ML IV PRN ×2 (08:02→20:57)
[2021-10-23] MEDS: PANTOPRAZOLE 40 MG/PACK PACK GT SCH (08:16)
[2021-10-23] MEDS ORDERED: POTASSIUM CL. PREMIX PERIPHER. 50 ML IV SCH (09:00)
[2021-10-23 10:31] LABS: BAND % (MANUAL) 6 % (0.0-5.0); LYMPHOCYTES % (MANUAL) 1 % (16-48); MONOCYTES % (MANUAL) 2 % (0-11.0); NEUTROPHILS % (MANUAL) 91 (42-76)
[2021-10-23] MEDS: Potassium Chloride 10 MEQ, LIDOCAINE HCL/PF 1% 1 ML in IV D5W 50 ML IV SCH ×5 (11:27→16:26)
--- NOTE | 2021-10-23 13:00 | NUR ---
rn notes seen patient via hospitalist JCARLOS Roberts, per hospitalist if bp stays stable will transfer patient to the [facility] department. due medication administered, bs-128mg/dl, running kcl @ 50ml/hr on right wrist. assist turn and reposition q 2 hr.
--- NOTE | 2021-10-23 13:27 | NUR ---
rn notes patient anxious at this time kicking,trying to release soft restrain. suction, mouth care done, administered Ativan 0.5 mg/ml iv push, bp 120/61, p-76. will follow up.
[2021-10-23] MEDS: LORAZEPAM INJ 2 MG/ML VIAL IVP PRN (13:37)
[2021-10-23] MEDS: SOD FERRIC GLUC 125 MG in IV NS 0.9% 100 ML IV SCH (15:42)
--- NOTE | 2021-10-23 16:30 | NUR ---
rn notes transferred patient to the [facility] at this time with stable condition, on ACLS protocol. bedside report given to the RN follow plan of care.
--- NOTE | 2021-10-23 18:13 | NUR ---
ADMIT RN NOTES RECEIVED PT FROM [facility] IN ICU. DX OF SEPSIS, SEPTIC SHOCK. PT IS A/O X 1 AND OBTUNDED. PT IS ON TRACH/VENT SETTINGS IS FOLLOWS; PORTEX 7, AC 16, TV 450, FIO2 40% PEEP 0. PT HAS GTUBE RUNNING 20 ML/HR. PT HAS RESTRAINTS ON RENEW DUE AT 1935. PT HAS R HAND IV ACCESS FLUSHES WELL AND PATENT. PT HAS A HEADLEY AND SKIN IS INTACT. SAFETY MEASURES IN PLACE, BED IN LOWEST LOCKED POSITION, SIDE RAILS UP X 3, CALL LIGHT WITHIN REACH. WILL CONTINUE TO MONITOR.
--- NOTE | 2021-10-23 18:55 | NUR ---
RN CLOSING NOTES PT REMAINS IN STABLE CONDITIONS. PATIENT IS A/O X 1, NONVERBAL, ABLE TO COMMUNICATE NEEDS WITH FACIAL EXPRESSIONS. ALL PATIENT NEEDS MET. ALL MEDS GIVEN. NO SIGNIFICANT FINDINGS UPON ALL NURSING ASSESSMENTS. ALL SAFETY MEASURES IN PLACE, BED IN LOWEST LOCKED POSITION, SR UP X 3, CALL LIGHT WITHIN REACH. WILL ENDORSE TO EKG TECHNICIAN NURSE FOR [facility].
--- NOTE | 2021-10-23 19:50 | NUR ---
RN NOTE RECEIVED PATIENT IN BED, SLEEPING, AROUSABLE TO NAME AND TOUCH. OPENS EYES, NON-VERBAL. BREATHING EVEN AND UNLABORED. NO SOB NOTED. ON VENT, WITH SETTINGS OF AC: 16 , TV: 450, PEEP: 0, FIO2: 40%. TOLERATING WELL. NO DISTRESS NOTED. ON TELE MONITORING. SINUS RHYTHM AT THIS TIME. SKIN WARM AND DRY. NOTED WITH RIGHT FOREARM 20G. RUNNING 1/2 AT 100 ML/HR. NO INFILTRATION NOTED. NOTED WITH G-TUBE FEEDING, RUNNING GLUCERNA 1.2 AT 20 ML/HR. TOLERATING WELL. HOB ELEVATED 35 DEGREES. NOTED WITH HEADLEY CATHETER. DRAINING YELLOW URINE. NO HEMATURIA. NOTED WITH BILATERAL SOFT WRIST RESTRAINTS. 2 FINGER SPACE OBSERVED. BED LOW, IN LOCKED POSITION. CALL LIGHT WITHIN REACH.
[2021-10-24] VITALS: BP 104/80
[2021-10-24] MEDS: ZOSYN IVPB 3.375 G in IV D5W 50ml IV SCH ×5 (00:17→23:51)
[2021-10-24] MEDS: BLOOD SUGAR DIAGNOSTIC 1 EACH STRIP IN SCH ×6 (00:25→21:36)
[2021-10-24] MEDS: INSULIN REGULAR, HUMAN 100 UNIT/ML 3 ML VIAL SQ PRN ×5 (00:27→21:37)
[2021-10-24 04:00] VITALS: BP 101/69
[2021-10-24] MEDS: HYDROCORTISONE SOD SUCCINATE 100 MG/2 ML VIAL IV SCH ×4 (04:14→17:09)
[2021-10-24 06:34] LABS: HEMATOCRIT 29 % (39-51); HEMOGLOBIN 9.8 g/dL (13.5-17.5); LYMPHOCYTES # (AUTO) 0.2 K/uL (0.8-4.8); MEAN CORPUSCULAR HGB CONC 34 g/dl (31.0-36.0); MEAN CORPUSCULAR VOLUME 88 fL (80-96); MONOCYTES # (AUTO) 0.2 K/uL (0.1-1.30); MONOCYTES % (AUTO) 2.7 % (2.0-12.0); NEUTROPHILS # (AUTO) 7.5 K/uL (1.8-8.9); NEUTROPHILS % (AUTO) 95.3 % (43.0-81.0); PLATELET COUNT (AUTO) 234 K/uL (150-450); RED BLOOD CELL COUNT(AUTO) 3.33 MIL/uL (4.5-6.0); WHITE BLOOD COUNT (AUTO) 7.9 K/uL (4.3-11.0)
[2021-10-24] MEDS: IV 1/2NS 1000 ML 1,000 ML IV PRN ×2 (06:37→23:20)
--- NOTE | 2021-10-24 07:49 | NUR ---
RN OPENING NOTES RECEIVED PATIENT AWAKE, A/O X 1 AND OBTUNDED. PT IS ON TRACH/VENT SETTINGS IS FOLLOWS; PORTEX 7, AC 16, TV 450, FIO2 40% PEEP 0, TOLERATING WELL.. PT HAS GTUBE RUNNING GLUCERNA 1.2 AT 20 ML/HR, TOLERATING WELL. PATIENT HAS BILATERAL SOFT WRISTS RESTRAINTS. IV ACCESS ON RIGHT FOREARM FLUSHES WELL AND PATENT, INFUSING 1/2 NS @ 100 ML/HR. HEADLEY CATHETER INTACT PATENT AND DRAINING WELL. SAFETY MEASURES IN PLACE, BED IN LOWEST LOCKED POSITION, SIDE RAILS UP X 3, CALL LIGHT WITHIN REACH. WILL CONTINUE TO MONITOR ACCORDINGLY.
[2021-10-24 08:00] VITALS: BP 106/73
[2021-10-24] MEDS: AMIODARONE HCL 200 MG TABLET PO SCH ×3 (08:11→21:00)
[2021-10-24] MEDS: PANTOPRAZOLE 40 MG/PACK PACK GT SCH (08:11)
[2021-10-24] MEDS: LEVOTHYROXINE SODIUM 100 MCG TABLET PO SCH (08:11)
[2021-10-24] MEDS: CHLORHEXIDINE GLUCONATE 15 ML UDC MM SCH ×2 (08:11→17:09)
[2021-10-24 08:34] LABS: CALCIUM, SERUM 7.7 mg/dL (8.5-10.1); CREATININE 0.9 mg/dL (0.6-1.3)
[2021-10-24 08:39] LABS: POTASSIUM 2.8 mmol/L (3.5-5.1)
[2021-10-24] MEDS: POTASSIUM CL. PREMIX PERIPHER. 50 ML IV SCH ×6 (09:16→14:43)
[2021-10-24 11:22] LABS: BAND % (MANUAL) 3 % (0.0-5.0); LYMPHOCYTES % (MANUAL) 2 % (16-48); MONOCYTES % (MANUAL) 2 % (0-11.0); NEUTROPHILS % (MANUAL) 93 (42-76)
[2021-10-24 12:00] VITALS: BP 106/58
[2021-10-24 16:00] VITALS: BP 100/58
--- NOTE | 2021-10-24 18:46 | NUR ---
RN CLOSING NOTES PT IN BED SLEEPING. BREATHING EVEN AND UNLABORED NO SOB OR ANY DISTRESS NOTED. PATIENT IN STABLE CONDITION THROUGHOUT SHIFT. NO FACIAL GRIMACING NOTED. IV ACCESS ON RIGHT WRIST #20G INTACT AND PATENT. NO S/S OF INFILTRATIONS. ALL DUE MEDS GIVEN ORDERED. KEPT PATIENT CLEAN, DRY AND COMFORTABLE. ALL NEEDS MET AND ATTENDED. HEADLEY CATH INTACT AND PATENT W/ YELLOWISH/URINE. 750 ML OF URINE. ALL APPLICABLE ISOLATION PRECAUTIONS MAINTAINED. ALL SAFETY MEASURE IN PLACE. BED LOCKED AND IN LOW POSITION WITH SIDERAILS UP. CALL LIGHT WITHIN REACH OF PATIENT WILL ENDORSE TO ONCOMING NURSE FOR CONTINUITY OF CARE.
[2021-10-24 20:00] VITALS: BP 102/56
[2021-10-25] VITALS: BP 97/58
[2021-10-25] MEDS: BLOOD SUGAR DIAGNOSTIC 1 EACH STRIP IN SCH ×6 (01:26→23:42)
[2021-10-25] MEDS: INSULIN REGULAR, HUMAN 100 UNIT/ML 3 ML VIAL SQ PRN ×4 (01:28→23:49)
[2021-10-25 04:00] VITALS: BP 105/54
[2021-10-25] MEDS: ZOSYN IVPB 3.375 G in IV D5W 50ml IV SCH ×4 (06:07→23:50)
[2021-10-25 06:26] LABS: BASOPHILS % (AUTO) 0.1 % (0.0-2.0); HEMATOCRIT 28 % (39-51); HEMOGLOBIN 9.5 g/dL (13.5-17.5); LYMPHOCYTES # (AUTO) 0.3 K/uL (0.8-4.8); LYMPHOCYTES % (AUTO) 3.4 % (20.0-44.0); MEAN CORPUSCULAR HGB CONC 34 g/dl (31.0-36.0); MEAN CORPUSCULAR VOLUME 89 fL (80-96); MONOCYTES # (AUTO) 0.4 K/uL (0.1-1.30); MONOCYTES % (AUTO) 4.4 % (2.0-12.0); NEUTROPHILS # (AUTO) 7.4 K/uL (1.8-8.9); NEUTROPHILS % (AUTO) 92.1 % (43.0-81.0); PLATELET COUNT (AUTO) 217 K/uL (150-450); RED BLOOD CELL COUNT(AUTO) 3.15 MIL/uL (4.5-6.0)
--- NOTE | 2021-10-25 06:35 | NUR ---
RN CLOSING NOTES, NO SIGNIFICANT CHANGE IN CONDITION DURING THE NIGHT, CONT ON MECHANICAL VENTILATOR, NO SOB/ACUTE DISTRESS NOTED THROUGHOUT THE SHIFT, PATIENT TOLERATED SETTINGS WELL, NO BLEEDING NOTED, TOLERATING FEEDING, NO RESIDUAL NOTED, OTHERWISE NO SIGNIFICANT CHANGE IN CONDITION, WILL ENDORSE CONTINUITY OF CARE TO ONCOMING NURSE.
[2021-10-25 06:49] LABS: CALCIUM, SERUM 7.2 mg/dL (8.5-10.1)
--- NOTE | 2021-10-25 07:40 | NUR ---
RN OPENING NOTES RECEIVED PATIENT AWAKE, A/O X 1 AND OBTUNDED. PT IS ON TRACH/VENT SETTINGS IS FOLLOWS; PORTEX 7, AC 16, TV 450, FIO2 40% PEEP 0, TOLERATING WELL.. PT HAS GTUBE RUNNING GLUCERNA 1.2 AT 20 ML/HR, TOLERATING WELL. PATIENT HAS BILATERAL SOFT WRISTS RESTRAINTS. IV ACCESS ON RIGHT WRIST FLUSHES WELL AND PATENT, INFUSING 1/2 NS @ 100 ML/HR. HEADLEY CATHETER INTACT PATENT AND DRAINING WELL. ALL APPLICABLE ISOLATION PRECAUTIONS IN PLACE. SAFETY MEASURES IN PLACE, BED IN LOWEST LOCKED POSITION, SIDE RAILS UP, CALL LIGHT WITHIN REACH OF PATIENT. WILL CONTINUE TO MONITOR ACCORDINGLY.
[2021-10-25 08:00] VITALS: BP 105/59
[2021-10-25 08:01] LABS: POTASSIUM 2.7 mmol/L (3.5-5.1)
[2021-10-25] MEDS: HYDROCORTISONE SOD SUCCINATE 100 MG/2 ML VIAL IV SCH ×2 (08:06→10:33)
[2021-10-25] MEDS: CHLORHEXIDINE GLUCONATE 15 ML UDC MM SCH ×2 (08:06→17:34)
[2021-10-25] MEDS: LEVOTHYROXINE SODIUM 100 MCG TABLET PO SCH (08:06)
[2021-10-25] MEDS: PANTOPRAZOLE 40 MG/PACK PACK GT SCH (08:06)
[2021-10-25] MEDS: AMIODARONE HCL 200 MG TABLET PO SCH ×3 (08:07→22:55)
[2021-10-25 09:24] LABS: BAND % (MANUAL) 1 % (0.0-5.0); LYMPHOCYTES % (MANUAL) 8 % (16-48); MONOCYTES % (MANUAL) 2 % (0-11.0); NEUTROPHILS % (MANUAL) 89 (42-76)
[2021-10-25] MEDS: POTASSIUM CL. PREMIX PERIPHER. 50 ML IV SCH ×5 (10:33→14:39)
[2021-10-25 12:00] VITALS: BP 115/64
[2021-10-25] MEDS: GLUCERNA 1.2 1,000 ML BOTTLE GT PRN (14:39)
--- NOTE | 2021-10-25 15:39 | NUR ---
RN NOTE INSERTED IV ACCESS FOR PATIENT ON LEFT FOREARM G#24, FLUSHED WELL, PATENT AND INTACT. ALL SAFETY MEASURES IN PLACE. BED IN LOWEST POSITION AND LOCKED WITH SIDERAILS UP, CALL LIGHT WITHIN REACH OF PATIENT. WILL CONTINUE TO MONITOR PATIENT.
[2021-10-25 16:00] VITALS: BP 117/66
--- NOTE | 2021-10-25 18:50 | NUR ---
RN CLOSING NOTES PT IN BED SLEEPING. ON VENT/TRACH, TOLERATING WELL. BREATHING EVEN AND UNLABORED NO SOB OR ANY DISTRESS NOTED. PATIENT IN STABLE CONDITION THROUGHOUT SHIFT. NO FACIAL GRIMACING NOTED. IV ACCESS ON LEFT FOREARM #24 AND RIGHT WRIST #20G PATENT AND INTACT . NO S/S OF INFILTRATIONS. ALL DUE MEDS GIVEN ORDERED. KEPT PATIENT CLEAN, DRY AND COMFORTABLE. ALL NEEDS MET AND ATTENDED. HEADLEY CATH INTACT AND PATENT W/ YELLOWISH/URINE. 600 ML OF URINE. ALL APPLICABLE ISOLATION PRECAUTIONS MAINTAINED. ALL SAFETY MEASURE IN PLACE. BED LOCKED AND IN LOW POSITION WITH SIDERAILS UP. CALL LIGHT WITHIN REACH OF PATIENT. WILL ENDORSE TO ONCOMING NURSE FOR CONTINUITY OF CARE.
--- NOTE | 2021-10-25 19:10 | NUR ---
RN NOTES RECEIVED REPORT FROM MORNING RN PATIENT IN BED A/O X1 OPENS EYES. PATIENT ON TRACH CONNECTED ON MV WITH PRESCRIBED SETTINGS TOLERATING WELL NO DISTRESS NO DESATURATION NOTED. WITH GT INTACT NO GASTRIC RESIDUAL CONNECTED TO CONTINUOS FEEDING TOLERATING WELL.WITH HEADLEY CATHETER CONNECTED TO URINE BAG DRAINING WELL WITH YELLOWISH URINE OUTPUT. VITAL SIGNS TAKEN AND RECORDED AFEBRILE. ALL SAFETY MEASURES IN PLACE AT ALL TIMES. CALL LIGHT WITHIN REACH. HOB ELEVATED. ALL NEEDS ATTENDED. WILL CONTINUE TO MONITOR THE PATIENT
[2021-10-25 20:00] VITALS: BP_SYST 105; BP_SYST 117; BP_DIAS 62; BP_DIAS 66
--- NOTE | 2021-10-25 20:26 | NUR ---
RECEIVED PT TRACH ON VENT. PT IS AWAKE NO RESP DISTRESS. PT TOLERATING VENT SETTINGS. SX'D SMALL AMT OF THICK YELLOW SECRETIONS. VENT ALARMS SET AND AUDIBLE. CONTINUE TO MONITOR. Addendum: 10/25/21 at 2026 by CHEYANNE PICKETT RT Amended: Links added.
--- NOTE | 2021-10-25 20:45 | NUR ---
RN NOTES PATIENT TRANSFERRED TO ROOM 320 VIA BED WITH RT AT BEDSIDE, ACLS PER PROTOCOL. PATIENT REMAINS STABLE DURING THE TRANSFER. BEDSIDE REPORT GIVEN TO RN HADLEY. ALL BELONGINGS GIVEN. ENDORSED.
--- NOTE | 2021-10-25 20:50 | NUR ---
MARKETING REGIONAL CONSULTANT NOTES RECEIVED PATIENT FROM [facility] NURSE VIA PATIENT BED AWAKE, A/O X 1 AND OBTUNDED. PT IS ON TRACH/VENT SETTINGS IS FOLLOWS; PORTEX 7, AC 16, TV 450, FIO2 40% PEEP 0, TOLERATING WELL.. PT HAS GTUBE RUNNING GLUCERNA 1.2 AT 35 ML/HR, TOLERATING WELL. IV ACCESS ON LFA G #24 POTASSIUM CHLORIDE 20 MEQ RUNNING 75 ML/HR. FLUSHES WELL AND PATENT, HEADLEY CATHETER INTACT PATENT AND DRAINING WELL. ALL APPLICABLE ISOLATION PRECAUTIONS IN PLACE. SAFETY MEASURES IN PLACE, BED IN LOWEST LOCKED POSITION, SIDE RAILS UP, CALL LIGHT WITHIN REACH OF PATIENT. WILL CONTINUE TO MONITOR ACCORDINGLY.
[2021-10-26] VITALS (7 sets, daily range): BP systolic 96–135; BP diastolic 50–61
[2021-10-26] MEDS: BLOOD SUGAR DIAGNOSTIC 1 EACH STRIP IN SCH ×6 (01:10→21:13)
[2021-10-26] MEDS: INSULIN REGULAR, HUMAN 100 UNIT/ML 3 ML VIAL SQ PRN ×4 (01:13→21:14)
[2021-10-26] MEDS: ZOSYN IVPB 3.375 G in IV D5W 50ml IV SCH ×2 (05:03→11:37)
--- NOTE | 2021-10-26 07:33 | NUR ---
RN OPENING NOTES Patient seen comfortably lying in bed, no SOB, no apparent distress noted, breathing even and unlabored, no grimacing. Call light left within reach, safety precautions in place, brakes locked, side rails up X 2, will monitor closely for any changes.
[2021-10-26 07:42] LABS: EOSINOPHILS % (AUTO) 0.3 % (0.0-6.0); HEMATOCRIT 30 % (39-51); HEMOGLOBIN 9.8 g/dL (13.5-17.5); LYMPHOCYTES # (AUTO) 0.2 K/uL (0.8-4.8); LYMPHOCYTES % (AUTO) 2.1 % (20.0-44.0); MEAN CORPUSCULAR HGB CONC 33 g/dl (31.0-36.0); MEAN CORPUSCULAR VOLUME 91 fL (80-96); MONOCYTES # (AUTO) 0.2 K/uL (0.1-1.30); MONOCYTES % (AUTO) 2.5 % (2.0-12.0); NEUTROPHILS # (AUTO) 7.8 K/uL (1.8-8.9); NEUTROPHILS % (AUTO) 95.1 % (43.0-81.0); PLATELET COUNT (AUTO) 222 K/uL (150-450); RED BLOOD CELL COUNT(AUTO) 3.31 MIL/uL (4.5-6.0); WHITE BLOOD COUNT (AUTO) 8.2 K/uL (4.3-11.0)
[2021-10-26 07:50] LABS: CALCIUM, SERUM 6.9 mg/dL (8.5-10.1); CREATININE 0.9 mg/dL (0.6-1.3); MAGNESIUM 2.1 mg/dL (1.8-2.4)
--- NOTE | 2021-10-26 07:51 | NUR ---
RN CLOSING NOTES PATIENT STILL AWAKE, A/O X 1 AND OBTUNDED. PT IS ON TRACH/VENT SETTINGS IS FOLLOWS; PORTEX 7, AC 16, TV 450, FIO2 40% PEEP 0, TOLERATING WELL.. PT HAS GTUBE RUNNING GLUCERNA 1.2 AT 20 ML/HR, TOLERATING WELL. PATIENT HAS BILATERAL SOFT WRISTS RESTRAINTS. IV ACCESS LFA G #24 RUNNING POTASSIUM CHLORIDE 20 MEQ @ 75 ML/HRFLUSHES WELL AND PATENT, . HEADLEY CATHETER INTACT PATENT AND DRAINING WELL. ALL APPLICABLE ISOLATION PRECAUTIONS IN PLACE. SAFETY MEASURES IN PLACE, BED IN LOWEST LOCKED POSITION, SIDE RAILS UP, CALL LIGHT WITHIN REACH OF PATIENT. WILL ENDORSE LAURA TO DAY SHIFT NURSE.
[2021-10-26] MEDS: HYDROCORTISONE SOD SUCCINATE 100 MG/2 ML VIAL IV SCH (09:14)
[2021-10-26] MEDS: PANTOPRAZOLE 40 MG/PACK PACK GT SCH (09:14)
[2021-10-26] MEDS: AMIODARONE HCL 200 MG TABLET PO SCH ×3 (09:14→21:26)
[2021-10-26] MEDS: LEVOTHYROXINE SODIUM 100 MCG TABLET PO SCH (09:24)
[2021-10-26] MEDS: CHLORHEXIDINE GLUCONATE 15 ML UDC MM SCH ×2 (09:24→16:33)
[2021-10-26] MEDS ORDERED: POTASSIUM CL. PREMIX PERIPHER. 50 ML IV SCH (12:00)
[2021-10-26 16:21] LABS: BAND % (MANUAL) 6 % (0.0-5.0); EOSINOPHILS % (MANUAL) 2 % (0-4); LYMPHOCYTES % (MANUAL) 6 % (16-48); MONOCYTES % (MANUAL) 1 % (0-11.0); NEUTROPHILS % (MANUAL) 85 (42-76)
--- NOTE | 2021-10-26 18:43 | NUR ---
Patient lying in bed, responsive to verbal and tactile stimuli, no apparent distress noted, no SOB, breathing even and unlabored, no dizziness, no palpitations, no grimacing, remained afebrile during shift. . Gtube remained intact and patent during shift, placement verified with auscultation and aspiration of gastric contents. No nausea, no vomiting, abdominal bowel sound present in all quadrant, no grimacing when abdomen palpated, no s/s of bleeding, no unusual bruising noted, no hematuria, no bleeding in stool, no bleeding gums. All medications given via gtube per MD order, tolerating well. No s/s of hypo or hyperglycemia, no tremors, no change in level of consciousness, insulin given per sliding scale as needed per MD order. Askew catheter draining clear yellowish urine free from any sediments, no hematuria, and no unusual odor noted in urine, denies any bladder pain or discomfort, bladder non distended during shift. Patient has an order for soft wrist restraint for safety, visual check rendered every 15 minutes, patient repositioned frequently, no s/s of circulation impairment noted at this time, skin warm to touch, no pallor or cyanosis noted. All needs attended, aspiration precautions observed at all times, kept head of bed elevated, kept clean and dry, safety precautions in place, brakes locked, side rails up X 2, call light left within reach, will endorse to next shift for continuity of care.
--- NOTE | 2021-10-26 19:15 | NUR ---
PLASTIC WELDER OPENING NOTE RECEIVED PT IN BED, AWAKE AND RESTING. PT IS A/O X1 AND NONVERBAL. STABLE ON MECHANICAL VENT. PT IS ON EXTERNAL HAT COPYIST READING SINUS RHYTHM @ 64. NO SOB OR RESPIRATORY DISTRESS NOTED, NO C/O PAIN AT THIS TIME. RESPIRATIONS EVEN AND UNLABORED. IV ACCESS NOTED IN RIGHT UPPER ARM MIDLINE G# 18. FALL AND SAFETY MEASURES IN PLACE AND MAINTAINED AT ALL TIMES. BED ALARM ON, BED IN LOW AND LOCKED POSITION, HOB ELEVATED TO SEMI FOWLERS POSITION, CALL LIGHT AND TABLE WITHIN REACH. SIDE RAILS UP X2. WILL CONTINUE WITH PLAN OF CARE.
[2021-10-27] VITALS: BP 123/65
[2021-10-27] MEDS: BLOOD SUGAR DIAGNOSTIC 1 EACH STRIP IN SCH ×6 (01:48→21:00)
[2021-10-27] MEDS: INSULIN REGULAR, HUMAN 100 UNIT/ML 3 ML VIAL SQ PRN ×3 (01:49→22:26)
[2021-10-27 04:00] VITALS: BP 128/61
--- NOTE | 2021-10-27 06:30 | NUR ---
STENO TYPIST CLOSING NOTE PT IS IN BED RESTING, EASY TO AROUSE. RESPONDS TO VERBAL AND TACTILE STIMULI. A/O X1 AND NONVERBAL. STABLE ON ROOM MECAHNICAL VENT. AC: 16, TV: 450, FIO2: 40%, PEEP:0. 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 NO SOB, NO S/S OF RESPIRATORY DISTRESS, NO FACIAL GROMACING, PT TOLERATED GTUBE FEEDING. PT IS BEDBOUND. IV ACCESS IS INTACT, PATENT, AND FLUSHING WELL. ALL NEEDS HAVE BEEN MET. ALL CARE, NEEDS, MEDICATIONS, AND TREATMENT ADMINISTERED ANTICIPATED PER ORDER. HEADLEY CATHTETER CARE PROVIDED, DRAINING CLEAR, YELOW URINE, NO ODOR OR SEDIMENTS OBSERVED. PERFORMED VISUAL CHECK EVERY 15 MINUTES, RELEASED THE RESTRAINT AND PERFORMED RANGE OF MOTION. PT REPOSITIONED EVERY 2HRS AND NEEDED.SAFETY, SEIZURE, AND ASPIRATION PRECAUTIONS MAINTAINED AT ALL TIMES. BED IN LOWEST, LOCKED POSITION. HOB ELEVATED, SIDE RAILS UP X2. CALL LIGHT AND TABLE WITHIN REACH. WILL ENDORSE TO ONCOMING NURSE FOR LAURA.
[2021-10-27] MEDS: GLUCERNA 1.2 1,000 ML BOTTLE GT PRN (06:37)
[2021-10-27 06:45] LABS: BASOPHILS % (AUTO) 0.1 % (0.0-2.0); EOSINOPHILS % (AUTO) 1.1 % (0.0-6.0); HEMATOCRIT 31 % (39-51); LYMPHOCYTES # (AUTO) 0.2 K/uL (0.8-4.8); LYMPHOCYTES % (AUTO) 1.9 % (20.0-44.0); MEAN CORPUSCULAR HGB CONC 33 g/dl (31.0-36.0); MEAN CORPUSCULAR VOLUME 90 fL (80-96); MONOCYTES # (AUTO) 0.2 K/uL (0.1-1.30); MONOCYTES % (AUTO) 2.2 % (2.0-12.0); NEUTROPHILS # (AUTO) 7.8 K/uL (1.8-8.9); NEUTROPHILS % (AUTO) 94.7 % (43.0-81.0); PLATELET COUNT (AUTO) 210 K/uL (150-450); RED BLOOD CELL COUNT(AUTO) 3.37 MIL/uL (4.5-6.0); WHITE BLOOD COUNT (AUTO) 8.2 K/uL (4.3-11.0)
[2021-10-27 07:14] LABS: CALCIUM, SERUM 6.7 mg/dL (8.5-10.1); CREATININE 0.7 mg/dL (0.6-1.3); POTASSIUM 2.9 mmol/L (3.5-5.1)
--- NOTE | 2021-10-27 07:36 | NUR ---
RN OPENING NOTES Patient seen comfortably lying in bed, respirations even and unlabored, no SOB, no apparent distress noted, no grimacing. Safety precautions in place, brakes locked, call light left within reach, side rails up X 2, will monitor closely for any changes.
[2021-10-27 08:19] VITALS: BP 128/62
[2021-10-27] MEDS: CHLORHEXIDINE GLUCONATE 15 ML UDC MM SCH ×2 (08:55→16:57)
[2021-10-27] MEDS: PANTOPRAZOLE 40 MG/PACK PACK GT SCH (08:55)
[2021-10-27] MEDS: LEVOTHYROXINE SODIUM 100 MCG TABLET PO SCH (08:55)
[2021-10-27] MEDS: AMIODARONE HCL 200 MG TABLET PO SCH ×3 (08:56→21:36)
[2021-10-27] MEDS: POTASSIUM CHLORIDE 20 MEQ POWDER PACKET GT SCH ×3 (09:41→11:32)
[2021-10-27 12:00] VITALS: BP 129/67
--- NOTE | 2021-10-27 13:00 | NUR ---
Patient has an order for computed tomography of neck with contrast dx: swelling and pain on left side of trach, consent for the procedure obtained from patient's spouse Samia Rosales, verbalized understanding of the procedure and gratitude. Consents signed by 2RNs and are filed in patients chart.
[2021-10-27] MEDS: ACETAMINOPHEN 650 MG/20.3 ML UDC NG PRN ×2 (13:41→21:36)
[2021-10-27 15:46] VITALS: BP 104/49
--- NOTE | 2021-10-27 18:16 | NUR ---
RN CLOSING NOTES Patient lying in bed, no SOB, respirations even and unlabored, no dizziness, no palpitations, no grimacing, remained afebrile during shift. No nausea, no vomiting, abdominal bowel sound present in all quadrant, no grimacing when abdomen palpated, no s/s of bleeding, no unusual bruising noted, no hematuria, no bleeding in stool, no bleeding gums.Gtube remained intact and patent during shift, placement verified with auscultation and aspiration of gastric contents. All medications given via gtube per MD order, tolerating well. No s/s of hypo or hyperglycemia, no tremors, no change in level of consciousness, insulin given per sliding scale as needed per MD order. Patient has an order for soft wrist restraint for safety, visual check rendered every 15 minutes, patient repositioned frequently, no s/s of circulation impairment noted at this time, skin warm to touch, no pallor or cyanosis noted. Askew catheter draining clear yellowish urine free from any sediments, no hematuria, and no unusual odor noted in urine, denies any bladder pain or discomfort, bladder non distended during shift. Kept clean and dry, call light left within reach, all needs anticipated, aspiration precautions observed at all times, kept head of bed elevated, safety precautions in place, brakes locked, side rails up X 2, will endorse to next shift for continuity of care.
--- NOTE | 2021-10-27 19:15 | NUR ---
POLYMERIZATION HELPER OPENING NOTE RECEIVED PT IN BED, AWAKE AND RESTING. PT IS A/O X1 AND NONVERBAL. STABLE ON MECHANICAL VENT. 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 NO SOB OR RESPIRATORY DISTRESS NOTED, NO C/O PAIN AT THIS TIME. RESPIRATIONS EVEN AND UNLABORED. IV ACCESS NOTED IN RIGHT UPPER ARM MIDLINE G# 18. FALL AND SAFETY MEASURES IN PLACE AND MAINTAINED AT ALL TIMES. BED ALARM ON, BED IN LOW AND LOCKED POSITION, HOB ELEVATED TO SEMI FOWLERS POSITION, CALL LIGHT AND TABLE WITHIN REACH. SIDE RAILS UP X2. WILL CONTINUE WITH PLAN OF CARE.
[2021-10-27 20:00] VITALS: BP 108/52
--- NOTE | 2021-10-27 21:36 | NUR ---
PT FACIAL GRIMACING, RESTLESS, MOANING AND ANXIOUS, PER NURSING ASSESSMENT TYLENOL 650MG (20.3ML) NG Q6H PRN ADMINISTERED AT THIS TIME PER ORDER. WILL CONTINUE TO MONITOR.
[2021-10-28] VITALS: BP 110/56
[2021-10-28] MEDS: BLOOD SUGAR DIAGNOSTIC 1 EACH STRIP IN SCH ×6 (01:48→20:43)
[2021-10-28] MEDS: INSULIN REGULAR, HUMAN 100 UNIT/ML 3 ML VIAL SQ PRN ×2 (01:49→05:16)
[2021-10-28] MEDS: MORPHINE SULFATE INJ 2 MG/ML DISP.SYRIN IV PRN ×3 (03:05→18:45)
--- NOTE | 2021-10-28 03:05 | NUR ---
PER PT REQUEST, FACIAL GRIMACING, RESTLESSNESS, PER NURSING ASSESSMENT MORPHINE 2MG/1ML IV Q4H PRN ADMINISTERED AT THIS TIME PER ORDER. WILL CONTINUE TO MONITOR.
[2021-10-28 04:00] VITALS: BP 145/67
[2021-10-28] MEDS: ACETAMINOPHEN 650 MG/20.3 ML UDC NG PRN (04:37)
--- NOTE | 2021-10-28 04:37 | NUR ---
PER PT REQUEST, PT FACIAL GRIMACING, RESTLESSNESS, MOANING AND ANXIOUS, PER NURSING ASSESSMENT TYLENOL 650MG (20.3ML) NG Q6H PRN ADMINISTERED AT THIS TIME PER ORDER. WILL CONTINUE TO MONITOR.
--- NOTE | 2021-10-28 06:30 | NUR ---
MANAGER OB CLOSING NOTE PT IS IN BED RESTING, EASY TO AROUSE. RESPONDS TO VERBAL AND TACTILE STIMULI. A/O X1 AND NONVERBAL. STABLE ON ROOM MECHANICAL VENT. AC: 16, TV: 450, FIO2: 40%, PEEP:0. 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 NO SOB, NO S/S OF RESPIRATORY DISTRESS, NO FACIAL GRIMACING, PT TOLERATED G TUBE FEEDING. PT IS BEDBOUND. IV ACCESS IS INTACT, PATENT, AND FLUSHING WELL. ALL NEEDS HAVE BEEN MET. ALL CARE, NEEDS, MEDICATIONS, PAIN MEDICATIONS AND TREATMENT ADMINISTERED ANTICIPATED PER ORDER. HEADLEY CATHETER CARE PROVIDED, DRAINING CLEAR, YELLOW URINE, NO ODOR OR SEDIMENTS OBSERVED. PERFORMED VISUAL CHECK EVERY 15 MINUTES, RELEASED THE RESTRAINT AND PERFORMED RANGE OF MOTION. PT REPOSITIONED EVERY 2HRS AND NEEDED.SAFETY, SEIZURE, AND ASPIRATION PRECAUTIONS MAINTAINED AT ALL TIMES. BED IN LOWEST, LOCKED POSITION. HOB ELEVATED, SIDE RAILS UP X2. CALL LIGHT AND TABLE WITHIN REACH. WILL ENDORSE TO ONCOMING NURSE FOR LAURA.
--- NOTE | 2021-10-28 08:00 | NUR ---
ms rn received on bed,awake at times, able to tell needs, patient is vent dependent, w/ g tube feeding at 20ml/hr, tolerating well w/o residual. delacruz to gravity, repositioned for comfort,all needs attended.
[2021-10-28 08:11] LABS: EOSINOPHILS % (AUTO) 1.5 % (0.0-6.0); HEMATOCRIT 29 % (39-51); HEMOGLOBIN 9.7 g/dL (13.5-17.5); LYMPHOCYTES # (AUTO) 0.2 K/uL (0.8-4.8); LYMPHOCYTES % (AUTO) 2.5 % (20.0-44.0); MEAN CORPUSCULAR HGB CONC 33 g/dl (31.0-36.0); MEAN CORPUSCULAR VOLUME 91 fL (80-96); MONOCYTES # (AUTO) 0.2 K/uL (0.1-1.30); MONOCYTES % (AUTO) 2.6 % (2.0-12.0); NEUTROPHILS # (AUTO) 6.4 K/uL (1.8-8.9); NEUTROPHILS % (AUTO) 93.4 % (43.0-81.0); PLATELET COUNT (AUTO) 203 K/uL (150-450); WHITE BLOOD COUNT (AUTO) 6.9 K/uL (4.3-11.0)
[2021-10-28 08:45] LABS: CALCIUM, SERUM 7.1 mg/dL (8.5-10.1); CREATININE 0.8 mg/dL (0.6-1.3); POTASSIUM 3.3 mmol/L (3.5-5.1)
[2021-10-28] MEDS ORDERED: IV NS 0.9% 250 ML IV ONE (09:18)
[2021-10-28] MEDS ORDERED: IOHEXOL-300 100 ML VIAL IV ONE (09:18)
--- NOTE | 2021-10-28 10:00 | NUR ---
ms rn due meds jamse, all needs attended.
[2021-10-28] MEDS: PANTOPRAZOLE 40 MG/PACK PACK GT SCH (10:04)
[2021-10-28] MEDS: AMIODARONE HCL 200 MG TABLET PO SCH ×3 (10:04→20:31)
[2021-10-28] MEDS: LEVOTHYROXINE SODIUM 100 MCG TABLET PO SCH (10:04)
[2021-10-28] MEDS: CHLORHEXIDINE GLUCONATE 15 ML UDC MM SCH ×2 (10:05→18:03)
[2021-10-28] MEDS ORDERED: POTASSIUM CHLORIDE 20 MEQ POWDER PACKET GT ONE (11:00)
--- NOTE | 2021-10-28 15:00 | NUR ---
ms rn was seen by gregory gutierrez w/ rajanich of orders, will monitor patient.
--- NOTE | 2021-10-28 18:58 | NUR ---
ms rn on bed, no distress noted,all needs attended.
--- NOTE | 2021-10-28 19:30 | NUR ---
LABORER PIPELINES OPENING NOTE RECEIVED PT IN BED, AWAKE AND RESTING. PT IS A/O X1-2 AND NONVERBAL. STABLE ON MECHANICAL VENT. EXTERNAL HAMPER MAKER READING SINUS RHYTHM @ 65. NO SOB OR S/S OF RESPIRATORY DISTRESS NOTED. NO C/O PAIN AT THIS TIME. IV ACCESS ANGELA MIDLINE G# 18, INTACT AND PATENT. HEADLEY CATHETER IN PLACE AND DRAINING CLEAR YELLOW FLUID. PEG TUBE IN PLACE RUNNING GLUCERNA 2 20 ML/HR. SAFETY PRECAUTIONS MAINTAINED. BED IN LOWEST LOCKED POSITION, HOB ELEVATED, SIDE RAILS UP X2, AND CALL LIGHT AND TABLE WITHIN REACH. WILL CONTINUE WITH PLAN OF CARE.
[2021-10-28 21:01] VITALS: BP 146/72
[2021-10-29] VITALS: BP_SYST 132; BP_SYST 155; BP_DIAS 69; BP_DIAS 82
[2021-10-29] MEDS: MORPHINE SULFATE INJ 2 MG/ML DISP.SYRIN IV PRN ×2 (00:20→16:55)
--- NOTE | 2021-10-29 00:20 | NUR ---
RN NOTE ADMINISTERED MORPHINE 2 MG FOR PAIN ORDERED. VSS. WILL CONTINUE TO MONITOR.
[2021-10-29] MEDS: BLOOD SUGAR DIAGNOSTIC 1 EACH STRIP IN SCH ×6 (00:38→23:05)
[2021-10-29] MEDS: LORAZEPAM INJ 2 MG/ML VIAL IVP PRN (02:43)
--- NOTE | 2021-10-29 02:43 | NUR ---
RN NOTE PT ANXIOUS AND AGITATED. ADMINISTERED ATIVAN 1 MG ORDERED. VSS. WILL CONTINUE TO MONITOR.
[2021-10-29 04:00] VITALS: BP 164/73
--- NOTE | 2021-10-29 06:50 | NUR ---
ONLINE MEDIA BUYER CLOSING NOTE PT IN BED, AWAKE AND RESTING. PT IS A/O X1-2 AND NONVERBAL. STABLE ON MECHANICAL VENT. EXTERNAL SEAM CHECKER READING SINUS RHYTHM @ 88. NO SOB OR S/S OF RESPIRATORY DISTRESS NOTED. NO C/O PAIN AT THIS TIME. IV ACCESS ANGELA MIDLINE G# 18, INTACT AND PATENT. HEADLEY CATHETER IN PLACE AND DRAINING CLEAR YELLOW FLUID. PEG TUBE IN PLACE, KEPT NPO AFTER MIDNIGHT FOR PROCEDURES. ALL NEEDS MET AT THIS TIME. SAFETY PRECAUTIONS MAINTAINED AT ALL TIMES. BED IN LOWEST LOCKED POSITION, HOB ELEVATED, SIDE RAILS UP X2, AND CALL LIGHT AND TABLE WITHIN REACH. WILL ENDORSE TO ONCOMING NURSE FOR LAURA.
[2021-10-29] MEDS: LEVOTHYROXINE SODIUM 100 MCG TABLET PO SCH (07:30)
--- NOTE | 2021-10-29 07:30 | NUR ---
ICE CREAM FREEZER OPENING NOTES RECEIVED PATIENT ON BED AND A/O X1-2. ON MECHANICAL VENT. NO SOB NOTED. NOT IN DISTRESS. ON EXPERT WITNESS CURRENTLY READING SINUS RHYTHM AT 77BPM. WITH NO COMPLAINTS OF PAIN OR DISCOMFORT AT THIS TIME. WITH IV ACCESS AT RIGHT UPPER ARM MIDLINE G18, SALINE LOCKED, PATENT AND INTACT. WITH PEG TUBE IN PLACED. ON NPO FOR CT WITH CONTRAST PROCEDURES. WITH HEADLEY CATHETER IN POLACED DRAINING CLEAR AND YELLOW URINE. SAFETY MEASURE IN PLACED. CALL LIGHT WITHIN REACH. BED ON LOWEST LOCKED POSITION. SIDE RAILS UP X2. WILL CONTINUE TO MONITOR.
[2021-10-29 07:59] LABS: BASOPHILS % (AUTO) 0.1 % (0.0-2.0); EOSINOPHILS % (AUTO) 1.2 % (0.0-6.0); HEMATOCRIT 31 % (39-51); HEMOGLOBIN 10.3 g/dL (13.5-17.5); LYMPHOCYTES # (AUTO) 0.3 K/uL (0.8-4.8); MEAN CORPUSCULAR HGB CONC 33 g/dl (31.0-36.0); MEAN CORPUSCULAR VOLUME 91 fL (80-96); MONOCYTES # (AUTO) 0.2 K/uL (0.1-1.30); MONOCYTES % (AUTO) 2.8 % (2.0-12.0); NEUTROPHILS % (AUTO) 91.9 % (43.0-81.0); PLATELET COUNT (AUTO) 221 K/uL (150-450); RED BLOOD CELL COUNT(AUTO) 3.41 MIL/uL (4.5-6.0); WHITE BLOOD COUNT (AUTO) 7.6 K/uL (4.3-11.0)
[2021-10-29 08:33] VITALS: BP 146/76
[2021-10-29 08:45] LABS: ALBUMIN 1.9 g/dL (3.4-5.0); CALCIUM, SERUM 7.3 mg/dL (8.5-10.1); CREATININE 0.7 mg/dL (0.6-1.3); MAGNESIUM 2.5 mg/dL (1.8-2.4); PHOSPHORUS 2.1 mg/dL (2.5-4.9); POTASSIUM 3.8 mmol/L (3.5-5.1); TOTAL PROTEIN, SERUM 5.8 g/dL (6.4-8.2)
[2021-10-29] MEDS: AMIODARONE HCL 200 MG TABLET PO SCH ×3 (09:00→21:34)
[2021-10-29] MEDS: PANTOPRAZOLE 40 MG/PACK PACK GT SCH (09:00)
[2021-10-29] MEDS: CHLORHEXIDINE GLUCONATE 15 ML UDC MM SCH ×2 (09:00→16:49)
[2021-10-29] MEDS: PIPERACILLIN /TAZOBACTAM 3.375 G in IV D5W 100 ML IV SCH ×2 (11:51→19:14)
[2021-10-29 12:00] VITALS: BP 136/70
[2021-10-29] MEDS ORDERED: PIPERACILLIN /TAZOBACTAM 3.375 G in IV D5W 50 ML IV SCH (12:00)
[2021-10-29] MEDS: VANCOMYCIN 0.75 GM in IV D5W 250 ML IV SCH (12:28)
[2021-10-29] MEDS: CLINDAMYCIN 900 MG in IV D5W 50 ML IV SCH ×2 (13:50→21:34)
[2021-10-29] MEDS ORDERED: NEUTRA PHOS 1 POWD.PACKET GT ONE (14:00)
[2021-10-29] MEDS ORDERED: IOHEXOL-300 100 ML VIAL IV ONE (15:37)
[2021-10-29 15:55] VITALS: BP 114/60
[2021-10-29] MEDS: GLUCERNA 1.2 1,000 ML BOTTLE GT PRN (17:13)
--- NOTE | 2021-10-29 18:41 | NUR ---
ROUGE MIXER CLOSING NOTES PATIENT ON BED AND A/O X1-2. ON MECHANICAL VENT. NO SOB NOTED. NOT IN DISTRESS. ON LADLE REPAIRMAN CURRENTLY READING SINUS RHYTHM AT 73BPM. WITH NO COMPLAINTS OF PAIN OR DISCOMFORT AT THIS TIME. WITH IV ACCESS AT RIGHT UPPER ARM MIDLINE G18, SALINE LOCKED, PATENT AND INTACT. ON GLUCERNA 1.2 FEEDING AT 20ML/HR VIA G-TUBE. WITH HEADLEY CATHETER IN POLACED DRAINING CLEAR AND YELLOW URINE. SAFETY MEASURE IN PLACED. CALL LIGHT WITHIN REACH. BED ON LOWEST LOCKED POSITION. SIDE RAILS UP X2. WILL ENDORSE TO NEXT SHIFT FOR LAURA.
--- NOTE | 2021-10-29 19:49 | NUR ---
RN OPENING NOTES RECEIVED PT IN BED, ASLEEP, AWAKENS TO VERBAL STIMULI. AOx1-2. ON VENTILATOR AND TOLERATING WELL. NO SOB NOTED. NO S/SX OF RESPIRATORY DISTRESS NOTED. IV ACCESS IN ANGELA MIDLINE. IV IS INTACT, PATENT, AND FLUSHING WELL. TELE MONITOR DETECTS SINUS RHYTHM IN 70s. HEADLEY CATHETER DRAINING CLEAR, YELLOW URINE. SAFETY PRECAUTIONS IN PLACE: BED IN LOWEST, LOCKED POSITION, SIDERAILS UPx2, AND BRAKES ON. TABLE AND CALL LIGHT WITHIN REACH. WILL CONTINUE TO MONITOR.
[2021-10-29 20:00] VITALS: BP 130/68
[2021-10-30] VITALS: BP 117/53
[2021-10-30] MEDS: VANCOMYCIN 0.75 GM in IV D5W 250 ML IV SCH ×3 (00:16→23:49)
[2021-10-30] MEDS: BLOOD SUGAR DIAGNOSTIC 1 EACH STRIP IN SCH ×6 (00:40→21:40)
[2021-10-30] MEDS: PIPERACILLIN /TAZOBACTAM 3.375 G in IV D5W 100 ML IV SCH ×3 (02:44→18:20)
[2021-10-30 04:00] VITALS: BP 115/62
[2021-10-30] MEDS: MORPHINE SULFATE INJ 2 MG/ML DISP.SYRIN IV PRN ×2 (04:27→15:45)
--- NOTE | 2021-10-30 04:28 | NUR ---
ADMINISTERED MORPHINE PER MD ORDER. VS WNL. WILL CONTINUE TO MONITOR.
[2021-10-30] MEDS: CLINDAMYCIN 900 MG in IV D5W 50 ML IV SCH ×3 (05:01→21:31)
[2021-10-30] MEDS: LORAZEPAM INJ 2 MG/ML VIAL IVP PRN (05:54)
--- NOTE | 2021-10-30 06:04 | NUR ---
ADMINISTERED ATIVAN PER MD ORDER. VS WNL. WILL CONTINUE TO MONITOR.
--- NOTE | 2021-10-30 06:43 | NUR ---
RN CLOSING NOTES PT IN BED, ASLEEP, AWAKENS TO VERBAL STIMULI. AOx1-2. ON VENTILATOR AND TOLERATING WELL. NO SOB NOTED. NO S/SX OF RESPIRATORY DISTRESS NOTED. IV ACCESS IN ANGELA MIDLINE. IV IS INTACT, PATENT, AND FLUSHING WELL. TELE MONITOR DETECTS SINUS RHYTHM IN 70s. HEADLEY CATHETER DRAINING CLEAR, YELLOW URINE ABOUT 2000 ML. ALL NEEDS MET. PT KEPT CLEAN AND DRY. TREATED PAIN ONCE. SAFETY PRECAUTIONS IN PLACE: BED IN LOWEST, LOCKED POSITION, SIDERAILS UPx2, AND BRAKES ON. TABLE AND CALL LIGHT WITHIN REACH. WILL ENDORSE TO ONCOMING SHIFT FOR LAURA.
--- NOTE | 2021-10-30 07:33 | NUR ---
FRONT SIGHT ATTACHER OPENING NOTES RECEIVED PATIENT AWAKE IN BED IN NO ACUTE SIGNS OF DISTRESS. HOB ELEVATED. A/O x 1-2, NON-VERBAL. PT WITH TRACH SHILEY #8 CONNECTED TO MECHANICAL VENT AT SETTINGS OF: AC 14, TV 400, FiO2 40%, PEEP 5, TOLERATING SETTINGS WELL, SP02 NOTED AT 100% AT THIS TIME. TELE MONITOR READING CURRENTLY SHOWS NSR, HR ON THE 70'S. ANGELA MIDLINE INTACT, PATENT AND FLUSHES WELL. G-TUBE IN PLACE WITH FEEDING OF GLUCERNA 1.2 @ 40ML/HR AT THIS TIME, TOLERATING WELL. ASPIRATION PRECAUTIONS MAINTAINED. HEADLEY IN PLACED AND ACTIVELY DRAINING CLEAR YELLOW URINE OUTPUT VIA GRAVITY. SAFETY PRECAUTIONS IN PLACED: BED LOCKED AND AT LOWEST POSITION. SIDE-RAILS UP X3. CALL LIGHT WITHIN REACH. WILL CONTINUE TO MONITOR PATIENT. Addendum: 10/30/21 at 1915 by DARLIN SHELBY RN CORRECTION: PT WITH TRACH PORTEX #7 CONNECTED TO MECHANICAL VENT AT SETTINGS OF: AC 16, TV 450, FiO2 40%, PEEP 0,
[2021-10-30 08:00] VITALS: BP 118/54
[2021-10-30] MEDS: LEVOTHYROXINE SODIUM 100 MCG TABLET PO SCH (08:47)
[2021-10-30] MEDS: PANTOPRAZOLE 40 MG/PACK PACK GT SCH (08:47)
[2021-10-30] MEDS: CHLORHEXIDINE GLUCONATE 15 ML UDC MM SCH ×2 (08:47→17:30)
[2021-10-30] MEDS: FERROUS SULFATE (325 MG) 325 MG/TAB TABLET PO SCH (08:48)
[2021-10-30] MEDS: AMIODARONE HCL 200 MG TABLET PO SCH ×3 (08:49→21:00)
[2021-10-30 09:06] LABS: IMMUNOGLOBULIN A, SERUM 226 mg/dL (61-437); IMMUNOGLOBULIN G, SERUM 1023 mg/dL (603-1613); IMMUNOGLOBULIN M, SERUM 43 mg/dL (15-143)
[2021-10-30] MEDS: INSULIN REGULAR, HUMAN 100 UNIT/ML 3 ML VIAL SQ PRN ×3 (09:21→17:30)
[2021-10-30 12:00] VITALS: BP 101/61
[2021-10-30 14:54] LABS: ALBUMIN 1.6 g/dL (3.4-5.0); CALCIUM, SERUM 6.9 mg/dL (8.5-10.1); CREATININE 0.7 mg/dL (0.6-1.3); MAGNESIUM 2.5 mg/dL (1.8-2.4); PHOSPHORUS 2.9 mg/dL (2.5-4.9); TOTAL PROTEIN, SERUM 5.7 g/dL (6.4-8.2)
[2021-10-30 15:15] LABS: BASOPHILS % (AUTO) 0.1 % (0.0-2.0); EOSINOPHILS % (AUTO) 1.6 % (0.0-6.0); HEMATOCRIT 30 % (39-51); LYMPHOCYTES # (AUTO) 0.2 K/uL (0.8-4.8); LYMPHOCYTES % (AUTO) 3.4 % (20.0-44.0); MEAN CORPUSCULAR HGB CONC 33 g/dl (31.0-36.0); MEAN CORPUSCULAR VOLUME 92 fL (80-96); MONOCYTES # (AUTO) 0.3 K/uL (0.1-1.30); MONOCYTES % (AUTO) 4.3 % (2.0-12.0); NEUTROPHILS # (AUTO) 5.6 K/uL (1.8-8.9); NEUTROPHILS % (AUTO) 90.6 % (43.0-81.0); PLATELET COUNT (AUTO) 199 K/uL (150-450); RED BLOOD CELL COUNT(AUTO) 3.29 MIL/uL (4.5-6.0); WHITE BLOOD COUNT (AUTO) 6.2 K/uL (4.3-11.0)
--- NOTE | 2021-10-30 15:47 | NUR ---
RN NOTES PT NOTED GRIMACING AND GESTURING THAT HE'S IN PAIN GENERALLY WITH SCALE OF 9/10. PRN MORPHINE 2MG/ML IVP ADMINISTERED AT 1545. WILL CONTINUE TO MONITOR AND REASSESS PT.
[2021-10-30 16:00] VITALS: BP 106/46
--- NOTE | 2021-10-30 18:48 | NUR ---
INDUSTRIAL ORGANIZATIONAL PSYCHOLOGIST OPENING NOTES PT IN BED ASLEEP AT THIS TIME, EASILY AWAKENS TO TACTILE STIMULI. HOB ELEVATED. A/O x 1-2, NON-VERBAL AND USES GESTURE TO MAKE HIS NEEDS KNOWN. PT WITH TRACH PORTEX #7 CONNECTED TO MECHANICAL VENT AT SETTINGS OF: AC 16, TV 450, FiO2 40%, PEEP 0, TOLERATING SETTINGS WELL, SP02 NOTED AT 100% AT THIS TIME. TELE MONITOR READING CURRENTLY SHOWS NSR, HR ON THE 70'S. ANGELA MIDLINE INTACT, PATENT AND FLUSHES WELL. G-TUBE IN PLACE WITH FEEDING OF GLUCERNA 1.2 @ 60ML/HR AT THIS TIME, TOLERATING WELL. ASPIRATION PRECAUTIONS MAINTAINED. HEADLEY IN PLACED AND ACTIVELY DRAINING CLEAR YELLOW URINE OUTPUT VIA GRAVITY, HEADLEY CARE DONE. PT TURNED AND REPOSITIONED Q 2HRS AND PRN. ALL NEEDS AND CARE PROVIDED WELL. SAFETY PRECAUTIONS IN PLACED: BED LOCKED AND AT LOWEST POSITION. SIDE-RAILS UP X3. CALL LIGHT WITHIN REACH.
[2021-10-30 20:00] VITALS: BP 112/53
[2021-10-31] VITALS: BP 113/51
[2021-10-31] MEDS: BLOOD SUGAR DIAGNOSTIC 1 EACH STRIP IN SCH ×5 (00:05→18:42)
[2021-10-31] MEDS: GLUCERNA 1.2 1,000 ML BOTTLE GT PRN (03:46)
[2021-10-31] MEDS: PIPERACILLIN /TAZOBACTAM 3.375 G in IV D5W 100 ML IV SCH ×3 (03:47→20:55)
[2021-10-31 04:00] VITALS: BP 125/61
[2021-10-31] MEDS: CLINDAMYCIN 900 MG in IV D5W 50 ML IV SCH ×2 (04:13→13:23)
[2021-10-31] MEDS: LORAZEPAM INJ 2 MG/ML VIAL IVP PRN (04:13)
--- NOTE | 2021-10-31 04:14 | NUR ---
ADMINISTERED ATIVAN PER MD ORDER. VS WNL. WILL CONTINUE TO MONITOR.
[2021-10-31] MEDS: MORPHINE SULFATE INJ 2 MG/ML DISP.SYRIN IV PRN (06:39)
--- NOTE | 2021-10-31 06:40 | NUR ---
ADMINSTERED MORPHINE PER MD ORDER.VS WNL. WILL CONTINUE TO MONITOR.
--- NOTE | 2021-10-31 06:40 | NUR ---
RN CLOSING NOTES PT IN BED, ASLEEP, AWAKENS TO VERBAL STIMULI. AOx1-2. ON VENTILATOR AND TOLERATING WELL. NO SOB NOTED. NO S/SX OF RESPIRATORY DISTRESS NOTED. IV ACCESS IN ANGELA MIDLINE. IV IS INTACT, PATENT, AND FLUSHING WELL. TELE MONITOR DETECTS SINUS RHYTHM IN 70s. HEADLEY CATHETER DRAINING CLEAR, YELLOW URINE ABOUT 1000 ML. ALL NEEDS MET. PT KEPT CLEAN AND DRY. TREATED PAIN ONCE. SAFETY PRECAUTIONS IN PLACE: BED IN LOWEST, LOCKED POSITION, SIDERAILS UPx2, AND BRAKES ON. TABLE AND CALL LIGHT WITHIN REACH. WILL ENDORSE TO ONCOMING SHIFT FOR LAURA.
[2021-10-31 07:41] LABS: BASOPHILS % (AUTO) 0.2 % (0.0-2.0); EOSINOPHILS % (AUTO) 1.3 % (0.0-6.0); HEMATOCRIT 31 % (39-51); LYMPHOCYTES # (AUTO) 0.2 K/uL (0.8-4.8); LYMPHOCYTES % (AUTO) 4.5 % (20.0-44.0); MEAN CORPUSCULAR HGB CONC 32 g/dl (31.0-36.0); MEAN CORPUSCULAR VOLUME 93 fL (80-96); MONOCYTES # (AUTO) 0.3 K/uL (0.1-1.30); MONOCYTES % (AUTO) 6.1 % (2.0-12.0); NEUTROPHILS # (AUTO) 3.9 K/uL (1.8-8.9); NEUTROPHILS % (AUTO) 87.9 % (43.0-81.0); PLATELET COUNT (AUTO) 208 K/uL (150-450); RED BLOOD CELL COUNT(AUTO) 3.35 MIL/uL (4.5-6.0); WHITE BLOOD COUNT (AUTO) 4.4 K/uL (4.3-11.0)
--- NOTE | 2021-10-31 07:48 | NUR ---
RN OPENING NOTES PATIENT IS AWAKE IN BED RESTING, A/O X4. NO S/S OF PAIN NOTED AT THIS TIME. ON ROOM AIR, NO DISTRESS OR SHORTNESS OF BREATH NOTED. IV ACCESS ANGELA PICC LINE, INTACT AND PATENT, FLUSHING WELL. PATIENT HAVE HEADLEY CATH, IN PLACE AND DRAINING WELL. FALL AND SAFETY MEASURES IN PLACE, BED ALARM ON, BED IN LOW AND LOCK POSITION, CALL LIGHT AND TABLE WITHIN EASY REACH, SIDE RAIL UP X2. WILL CONTINUE TO MONITOR. Addendum: 10/31/21 at 0759 by Aiyana Sellers RN RN OPENING NOTES PATIENT IS AWAKE IN BED RESTING, A/O X1-2. NO S/S OF PAIN NOTED AT THIS TIME. ON ROOM AIR, NO DISTRESS OR SHORTNESS OF BREATH NOTED. IV ACCESS ANGELA MIDLINE AND LFA #24G, INTACT AND PATENT, FLUSHING WELL. PATIENT HAVE HEADLEY CATH, IN PLACE AND DRAINING WELL. FALL AND SAFETY MEASURES IN PLACE, BED ALARM ON, BED IN LOW AND LOCK POSITION, CALL LIGHT AND TABLE WITHIN EASY REACH, SIDE RAIL UP X2. WILL CONTINUE TO MONITOR.
[2021-10-31 08:00] VITALS: BP 105/60
[2021-10-31 08:26] LABS: ALBUMIN 1.7 g/dL (3.4-5.0); BILIRUBIN,TOTAL 0.7 mg/dL (0.2-1.0); CALCIUM, SERUM 7.2 mg/dL (8.5-10.1); CREATININE 0.8 mg/dL (0.6-1.3); MAGNESIUM 2.4 mg/dL (1.8-2.4); PHOSPHORUS 2.9 mg/dL (2.5-4.9); POTASSIUM 3.5 mmol/L (3.5-5.1); TOTAL PROTEIN, SERUM 5.8 g/dL (6.4-8.2)
[2021-10-31] MEDS: AMIODARONE HCL 200 MG TABLET PO SCH ×2 (09:00→13:00)
[2021-10-31] MEDS: CHLORHEXIDINE GLUCONATE 15 ML UDC MM SCH ×2 (09:36→18:23)
[2021-10-31] MEDS: PANTOPRAZOLE 40 MG/PACK PACK GT SCH (09:36)
[2021-10-31] MEDS: FERROUS SULFATE (325 MG) 325 MG/TAB TABLET PO SCH (09:37)
[2021-10-31] MEDS: LEVOTHYROXINE SODIUM 100 MCG TABLET PO SCH (09:37)
[2021-10-31] MEDS: INSULIN REGULAR, HUMAN 100 UNIT/ML 3 ML VIAL SQ PRN ×2 (10:02→18:42)
[2021-10-31 12:00] VITALS: BP 107/61
[2021-10-31 12:06] LABS: *SPE A/G RATIO 0.8 (0.7-1.7); *SPE ALPHA-1-GLOBULIN 0.2 g/dL (0.0-0.4); *SPE ALPHA-2-GLOBULIN 0.6 g/dL (0.4-1.0); *SPE BETA GLOBULIN 0.7 g/dL (0.7-1.3); *SPE M-SPIKE Not Observed g/dL (Not Observed)
[2021-10-31] MEDS: VANCOMYCIN 0.75 GM in IV D5W 250 ML IV SCH (14:13)
[2021-10-31 16:00] VITALS: BP 101/56
--- NOTE | 2021-10-31 19:46 | NUR ---
RN CLOSING NOTES PATIENT IS AWAKE IN BED RESTING, A/O X1-2. NO S/S OF PAIN NOTED AT THIS TIME. ON ROOM AIR, NO DISTRESS OR SHORTNESS OF BREATH NOTED. IV ACCESS ANGELA MIDLINE AND LFA #24G, INTACT AND PATENT, FLUSHING WELL. PATIENT HAVE HEADLEY CATH, IN PLACE AND DRAINING WELL. FALL AND SAFETY MEASURES IN PLACE, BED ALARM ON, BED IN LOW AND LOCK POSITION, CALL LIGHT AND TABLE WITHIN EASY REACH, SIDE RAIL UP X2. WILL ENDORSE TO LINEN ROOM WORKER.
--- NOTE | 2021-10-31 22:30 | NUR ---
METAL SMELTERMINE PATROL NOTES PATIENT DISCHARGED IN STABLE CONDITION, PICKED UP VIA AMBULANCE AND RT. PER DAY SHIFT NURSE, HEADLEY AND IV ACCESS LEFT IN PLACE. DISCHARGE PAPERS GIVEN TO EMT'S. TELE MONITOR REMOVED. G TUBE FEEDING TUBE INTACT AND LOCKED.
== END 2021-10-31 21:30 | DRG 207 ==
LOC: ER 17:36 → TELE-TD 21:32 → ICU 10-19 16:04 → TELE-TD 10-23 16:07 → TELE1 10-24 10:15 → MED 10-25 20:56 → TELE 10-25 21:35
PROVIDERS: ADMIT Nurse Practitioner Acute Care
PROC: 5A1955Z Respiratory Ventilation, Greater than 96 Consecutive Hours (ICD-10-PCS; principal; 2021-10-18)
PROC: 30233N1 Transfusion of Nonautologous Red Blood Cells into Peripheral Vein, Percutaneous Approach (ICD-10-PCS; 2021-10-19)
DX: J95.851 Ventilator associated pneumonia (principal); G93.41 Metabolic encephalopathy; J96.21 Acute and chronic respiratory failure with hypoxia; N17.0 Acute kidney failure with tubular necrosis; R65.21 Severe sepsis with septic shock; J96.22 Acute and chronic respiratory failure with hypercapnia; A41.81 Sepsis due to Enterococcus; J15.6 Pneumonia due to other Gram-negative bacteria; I50.33 Acute on chronic diastolic (congestive) heart failure; J69.0 Pneumonitis due to inhalation of food and vomit; D68.59 Other primary thrombophilia; N39.0 Urinary tract infection, site not specified; Z99.11 Dependence on respirator [ventilator] status; E87.0 Hyperosmolality and hypernatremia; J98.11 Atelectasis; R04.2 Hemoptysis; K92.2 Gastrointestinal hemorrhage, unspecified; E44.0 Moderate protein-calorie malnutrition; E66.2 Morbid (severe) obesity with alveolar hypoventilation; E87.2 Acidosis; C34.90 Malignant neoplasm of unspecified part of unspecified bronchus or lung; J44.0 Chronic obstructive pulmonary disease with (acute) lower respiratory infection; R18.8 Other ascites; Z68.41 Body mass index [BMI] 40.0-44.9, adult; M48.55XA Collapsed vertebra, not elsewhere classified, thoracolumbar region, initial encounter for fracture; F23 Brief psychotic disorder; E87.1 Hypo-osmolality and hyponatremia; E78.5 Hyperlipidemia, unspecified; D64.9 Anemia, unspecified; E11.65 Type 2 diabetes mellitus with hyperglycemia; E03.9 Hypothyroidism, unspecified; Z20.822 Contact with and (suspected) exposure to COVID-19; Z93.0 Tracheostomy status; Z93.1 Gastrostomy status; R13.10 Dysphagia, unspecified; Z74.01 Bed confinement status; E86.0 Dehydration; F09 Unspecified mental disorder due to known physiological condition; Y84.8 Other medical procedures as the cause of abnormal reaction of the patient, or of later complication, without mention of misadventure at the time of the procedure; Y92.129 Unspecified place in nursing home as the place of occurrence of the external cause; E83.39 Other disorders of phosphorus metabolism; E83.41 Hypermagnesemia; E87.6 Hypokalemia; C32.1 Malignant neoplasm of supraglottis; B00.1 Herpesviral vesicular dermatitis; G89.4 Chronic pain syndrome; I48.91 Unspecified atrial fibrillation; I11.0 Hypertensive heart disease with heart failure; Z86.74 Personal history of sudden cardiac arrest; Y95 Nosocomial condition; Z66 Do not resuscitate; Z79.891 Long term (current) use of opiate analgesic; Z79.890 Hormone replacement therapy; Z87.891 Personal history of nicotine dependence
CPT/HCPCS: 31720; 36410; 36415; 36600; 70460-TC; 70491-TC; 71045-TC; 71260-TC; 76770-TC; 80048-TC; 80053-TC; 80061-TC; 80076-TC; 80202-TC; 81001; 82248-TC; 82272-TC; 82378; 82533; 82728-TC; 82784; 82803-TC; 82962-TC; 83540-TC; 83605-TC; 83735-TC; 84100-TC; 84155; 84165; 84439-TC; 84443-TC; 84484-TC; 85025-TC; 85730-TC; 86334; 86850-TC; 87040-TC; 87070-TC; 87081-TC; 87086-TC; 87186-TC; 93307-TC; 94002-TC; 94003-TC; 94760-TC; 94762-TC; 94799-TC; 97112-TC; 97530-TC; 99082-TC; A4216; A4217; A4623; A6253; A6403; C9113; C9803; G0378; J0282; J1644; J1720; J1815; J2060; J2270; J2370; J2543; J2916; J3370; J3480; J3490; J7030; J7050; J7060; J7070; P9016; P9047; Q9967; U0003

== ENCOUNTER 2021-11-26 18:44 | Inpatient (IN) | payer MEDICARE, OTHER ==
[~2021-11-26] VITALS: Ht 177.8 cm; Wt 56.2 kg
[~2021-11-26 18:44] MED LIST: CHLO473M3 MM; CIPR7.5D9 EACH EAR; HYDR-3973 GT; IPRA4AER INH; LEVO25TA7 GT; NUT.237L31 GT; OXYC10TA49 GT; POLY17PO4 GT
--- NOTE | 2021-11-26 18:55 | NUR ---
ART [id number] [facility] for being "more altered than usual." Aaox0, nonverbal, nonambulatory. pox 100% on trach ventilatory. Chronic Trach/Vent dependent.
[2021-11-26] MEDS ORDERED: NA P133E RC (19:12)
[2021-11-26] MEDS ORDERED: INSU100V27 SQ (19:12)
[2021-11-26] MEDS ORDERED: MAGN400O6 GT (19:12)
[2021-11-26] MEDS ORDERED: ACET-2605 GT (19:12)
[2021-11-26] MEDS ORDERED: AMIO200T5 GT (19:12)
[2021-11-26] MEDS ORDERED: MULT-447 GT (19:12)
[2021-11-26] MEDS ORDERED: ACET-868 GT (19:12)
[2021-11-26] MEDS ORDERED: IPRA4AER INH (19:12)
[2021-11-26] MEDS ORDERED: FERR300L GT (19:12)
[2021-11-26] MEDS ORDERED: PANT40SU2 GT (19:12)
[2021-11-26] MEDS ORDERED: BISA10SU11 RC (19:12)
[2021-11-26] MEDS ORDERED: GLUC1KIT IM (19:12)
--- NOTE | 2021-11-26 19:17 | NUR ---
RT pt placed on vent with settings from facility. trached, portex 7. vent settings: AC 16 450 35% +5. vent plugged in to red outlet. small thick yellow secretions suctioned via trach. vent plugged in to red outlet. no sob, no resp distress. ambu bag at bedside. spare trach at bedside. will continue to monitor.
[2021-11-26 19:59] LABS: BASOPHILS % (AUTO) 0.1 % (0.0-2.0); EOSINOPHILS % (AUTO) 0.3 % (0.0-6.0); HEMATOCRIT 21 % (39-51); LYMPHOCYTES # (AUTO) 0.3 K/uL (0.8-4.8); LYMPHOCYTES % (AUTO) 2.1 % (20.0-44.0); MEAN CORPUSCULAR HGB CONC 33 g/dl (31.0-36.0); MEAN CORPUSCULAR VOLUME 92 fL (80-96); MONOCYTES # (AUTO) 0.5 K/uL (0.1-1.30); MONOCYTES % (AUTO) 3.5 % (2.0-12.0); NEUTROPHILS # (AUTO) 14.3 K/uL (1.8-8.9); PLATELET COUNT (AUTO) 528 K/uL (150-450); RED BLOOD CELL COUNT(AUTO) 2.25 MIL/uL (4.5-6.0); WHITE BLOOD COUNT (AUTO) 15.2 K/uL (4.3-11.0)
--- NOTE | 2021-11-26 20:03 | NUR ---
COVID TEST SWABBED AND SENT TO LAB
[2021-11-26 20:05] LABS: HEMOGLOBIN 6.9 g/dL (13.5-17.5)
--- NOTE | 2021-11-26 20:10 | NUR ---
urine sample obtained and sent to lab
--- NOTE | 2021-11-26 20:18 | NUR ---
XRAY AT BEDSIDE
[2021-11-26 20:22] LABS: ALANINE AMINOTRANSFERASE 15 U/L (12-78); ALBUMIN 2.4 g/dL (3.4-5.0); ALKALINE PHOSPHATASE 100 U/L (46-116); ASPARTATE AMINOTRANSFERASE 13 U/L (15-37); BILIRUBIN,DIRECT 0.2 mg/dL (0.0-0.2); BILIRUBIN,TOTAL 0.3 mg/dL (0.2-1.0); CALCIUM, SERUM 10.2 mg/dL (8.5-10.1); CARBON DIOXIDE 31 mmol/L (21-32); CHLORIDE 97 mmol/L (98-107); CREATININE 1.4 mg/dL (0.6-1.3); GLUCOSE 121 mg/dL (74-106); POTASSIUM 4.5 mmol/L (3.5-5.1); SODIUM SERUM 134 mmol/L (136-145); TOTAL PROTEIN, SERUM 7.9 g/dL (6.4-8.2); UREA NITROGEN, BLOOD 32 mg/dL (7-18)
[2021-11-26 20:41] LABS: BILIRUBIN,URINE NEGATIVE (NEGATIVE); COLOR,URINE YELLOW (YELLOW); LEUKOCYTE ESTERASE ,URINE NEGATIVE (NEGATIVE); NITRITE, URINE NEGATIVE (NEGATIVE); PROTEIN,URINE NEGATIVE (NEGATIVE); UGLUCOSE NEGATIVE (NEGATIVE); UROBILINOGEN,URINE 0.2 EU/dL (0.2)
--- NOTE | 2021-11-26 20:58 | NUR ---
PT TAKEN TO CT VIA ACLS PROTOCOL WITH RN & RT
--- NOTE | 2021-11-26 21:09 | NUR ---
PT RETURNED FROM CT. VS REMAINED STABLE.
[2021-11-26 21:12] LABS: BAND % (MANUAL) 14 % (0.0-5.0); LYMPHOCYTES % (MANUAL) 4 % (16-48); MONOCYTES % (MANUAL) 2 % (0-11.0); NEUTROPHILS % (MANUAL) 80 (42-76)
--- NOTE | 2021-11-26 21:12 | NUR ---
RT pt transported to ct and back. no complications during transport or procedure. pt placed back on vent. will continue to monitor.
[2021-11-26] MEDS ORDERED: VANCOMYCIN 1 GM in IV D5W 250 ML IV ONE (23:00)
[2021-11-26] MEDS ORDERED: IV NS 0.9% 1,000 ML BAG IV ONE (23:00)
[2021-11-26] MEDS ORDERED: CEFEPIME 1 GM in IV D5W 50 ML IV ONE (23:00)
[2021-11-26] MEDS ORDERED: VANCOMYCIN 1 GM VIAL ONE (23:02)
[2021-11-26] MEDS ORDERED: CEFEPIME 1 GM VIAL ONE (23:02)
[2021-11-26] MEDS ORDERED: ACETAMINOPHEN 325 MG TABLET PO PRN (23:30)
[2021-11-26] MEDS ORDERED: GLUCERNA 1.5 1,000 ML BOTTLE GT SCH (23:30)
[2021-11-26] MEDS ORDERED: HYDROCODONE/APAP 5/325MG TABLET PO PRN (23:30)
[2021-11-26] MEDS ORDERED: ONDANSETRON HCL/PF 4 MG/2 ML VIAL IVP PRN (23:30)
[2021-11-26] MEDS ORDERED: Z GUARD REMEDY 4 OZ OINT TP PRN (23:30)
[2021-11-26] MEDS ORDERED: MAG HYDROX/AL HYDROX/SIMETH 30 ML UDC PO PRN (23:30)
[2021-11-26] MEDS ORDERED: DEXTROSE 50%-WATER 50 ML DISP.SYRIN IV PRN (23:30)
[2021-11-26] MEDS ORDERED: MAGNESIUM HYDROXIDE 30 ML UDC PO PRN (23:30)
[2021-11-26] MEDS: BLOOD SUGAR DIAGNOSTIC 1 EACH STRIP IN SCH (23:49)
[2021-11-26] MEDS: INSULIN REGULAR, HUMAN 100 UNIT/ML 3 ML VIAL SQ PRN (23:52)
[2021-11-27] MEDS ORDERED: ZOSYN IVPB 4.5 G in IV D5W 50ml IV ONE ×2
[2021-11-27] MEDS ORDERED: PIPERACILLIN /TAZOBACTAM 4.5 G in IV NS 0.9% 50 ML IV SCH ×2
[2021-11-27] MEDS: IV NS 0.9% 1,000 ML IV PRN (00:28)
[2021-11-27] MEDS ORDERED: PIPERACILLIN /TAZOBACTAM 2.25 G VIAL IV ONE (00:32)
--- NOTE | 2021-11-27 00:55 | NUR ---
LFA #20G S/L; PATENT AND INTACT. PT TOLERATING VENT SETTINGS WELL AT 100% A/C 16 TV 450 FIO2 35% PEEP [address]
[2021-11-27 05:21] LABS: BASOPHILS % (AUTO) 0.2 % (0.0-2.0); EOSINOPHILS % (AUTO) 0.4 % (0.0-6.0); LYMPHOCYTES # (AUTO) 0.6 K/uL (0.8-4.8); LYMPHOCYTES % (AUTO) 5.3 % (20.0-44.0); MEAN CORPUSCULAR HGB CONC 33 g/dl (31.0-36.0); MEAN CORPUSCULAR VOLUME 92 fL (80-96); MONOCYTES # (AUTO) 0.5 K/uL (0.1-1.30); NEUTROPHILS # (AUTO) 10.6 K/uL (1.8-8.9); NEUTROPHILS % (AUTO) 90.1 % (43.0-81.0); PLATELET COUNT (AUTO) 450 K/uL (150-450); WHITE BLOOD COUNT (AUTO) 11.7 K/uL (4.3-11.0)
[2021-11-27] MEDS: AMIODARONE HCL 200 MG TABLET GT SCH ×3 (05:30→22:13)
[2021-11-27] MEDS ORDERED: AMIODARONE HCL 200 MG TABLET ONE (05:40)
[2021-11-27] MEDS: BLOOD SUGAR DIAGNOSTIC 1 EACH STRIP IN SCH ×3 (05:43→18:19)
[2021-11-27] MEDS: INSULIN REGULAR, HUMAN 100 UNIT/ML 3 ML VIAL SQ PRN (05:43)
[2021-11-27 06:19] LABS: CALCIUM, SERUM 9.1 mg/dL (8.5-10.1); CARBON DIOXIDE 30 mmol/L (21-32); CHLORIDE 100 mmol/L (98-107); CREATININE 1.2 mg/dL (0.6-1.3); GLUCOSE 133 mg/dL (74-106); MAGNESIUM 2.6 mg/dL (1.8-2.4); PHOSPHORUS 3.4 mg/dL (2.5-4.9); POTASSIUM 4.3 mmol/L (3.5-5.1); SODIUM SERUM 134 mmol/L (136-145); UREA NITROGEN, BLOOD 26 mg/dL (7-18)
[2021-11-27] MEDS ORDERED: GLUCERNA 1.5 1,000 ML BOTTLE GT SCH (06:37)
[2021-11-27 06:41] LABS: CHOLESTEROL 115 mg/dL (<200); HDL CHOLESTEROL 37 mg/dL (40-60); LDL 63 mg/dL (0-99); THYROID STIMULATING HORMONE 22.875 uIU/mL (0.358-3.74); TRIGLYCERIDES 132 mg/dL (30-150)
[2021-11-27 07:20] LABS: HEMATOCRIT 16 % (39-51); HEMOGLOBIN 5.1 g/dL (13.5-17.5)
[2021-11-27] MEDS: PANTOPRAZOLE 40 MG TABLET.DR PO SCH (07:30)
[2021-11-27] MEDS ORDERED: LEVOTHYROXINE SODIUM 125 MCG TABLET GT SCH (07:30)
[2021-11-27] MEDS ORDERED: FERROUS SULFATE UDC 300 MG/5 ML UDC ONE (07:39)
[2021-11-27] MEDS ORDERED: PANTOPRAZOLE 40 MG TABLET.DR PO ONE (07:40)
--- NOTE | 2021-11-27 08:15 | NUR ---
BLOOD TRANSFUSION STARTED. V/S STABLE.
--- NOTE | 2021-11-27 08:30 | NUR ---
[facility] ADMIT FROM ER AFTER REPORT RECEIVED FROM ERIC. PATIENT ORIENTED TO PRIMARY RN, UNIT, ROOM, BED, AND UNIT PLICIES REGARDING PATIENT CARE AND VISITING HOURS. PATIENT NOW ON CONTINUOUS TELEMETRY MONITORING; READING ON ARRIVAL IS SR 69,. PATIENT PLACED ON VENT, WEIGHED BY BEDSCALE. PATIENT UNABLE TO VERBALIZE UNDERSTANDING.
[2021-11-27] MEDS: FERROUS SULFATE UDC 300 MG/5 ML UDC GT SCH (08:38)
[2021-11-27 09:00] VITALS: BP 93/51
--- NOTE | 2021-11-27 10:57 | NUR ---
TRANSFUSION ENDED 96/54, 61, 100%
[2021-11-27] MEDS: VANCOMYCIN 0.75 GM in IV D5W 250 ML IV SCH ×2 (11:18→22:10)
[2021-11-27 12:26] LABS: IRON, SERUM 13 ug/dl (50-175); TOTAL IRON BINDING CAPACITY 101 ug/dl (250-450)
[2021-11-27] MEDS: PIPERACILLIN /TAZOBACTAM 3.375 G in IV D5W 100 ML IV SCH ×2 (13:00→18:18)
[2021-11-27] MEDS ORDERED: VANCOMYCIN 0.75 GM in IV D5W 250 ML IV SCH (13:00)
[2021-11-27 13:05] LABS: HEMOGLOBIN 7.5 g/dL (13.5-17.5)
[2021-11-27 14:55] LABS: LYMPHOCYTES % (MANUAL) 6 % (16-48); NEUTROPHILS % (MANUAL) 89 (42-76); REACTIVE LYMPHOCYTES 5 % (0-0)
[2021-11-27 16:11] LABS: FERRITIN 861 ng/mL (8-388)
[2021-11-27] MEDS: SOD FERRIC GLUC 125 MG in IV NS 0.9% 100 ML IV SCH (19:14)
[2021-11-27 20:00] VITALS: BP 97/54
[2021-11-28] VITALS: BP 105/64
[2021-11-28] MEDS: PIPERACILLIN /TAZOBACTAM 3.375 G in IV D5W 100 ML IV SCH ×3 (01:15→16:04)
[2021-11-28] MEDS: IV NS 0.9% 1,000 ML IV PRN (02:16)
[2021-11-28 04:00] VITALS: BP 100/48
[2021-11-28] MEDS: AMIODARONE HCL 200 MG TABLET GT SCH ×3 (05:00→22:24)
[2021-11-28] MEDS: BLOOD SUGAR DIAGNOSTIC 1 EACH STRIP IN SCH ×5 (05:58→23:21)
--- NOTE | 2021-11-28 06:30 | NUR ---
[facility] RN NOTE NOTED PT TRYING TO PULL THE TUBES OUT. DR GORDON INFORMED AND RECEIVED NEW ORDER, ORDER NOTED AND CARRIED OUT. APPLIED BILATERAL SOFT WRIST RESTRAINTS..
--- NOTE | 2021-11-28 06:40 | NUR ---
[facility]ANKI RN NOTE PT IN BED AWAKE, PT OPEN EYES NON VERBAL. ON TRACH/VENT TOLERATING THE SETTINGS WELL. KEPT HIS HOB ELEVATED. ON TELE SR HR 60. GTF INFUSING VERY WELL GLUCERNA # 60 ML/HR. . KEPT HIM DRY AND CLEAN. ALL NEEDS ATTENDED. CONTINUE TO MONITOR HER. Addendum: 11/28/21 at 0644 by ISAC BUTCHER RN IT WAS OPENING VICKI NOTE FOR 1999 NOTE.
--- NOTE | 2021-11-28 07:30 | NUR ---
RN OPENING NOTES RECEIVED PATIENT IN PATIENT, OPENING EYES TO STIMULI, NON-VERBAL, TRACH TO VENT WITH VENT SETTINGS AC 16 FIO2 35% TV 450 PEEP 5 WITH O2 SAT OF 100%, WITH IV SITE LFA AND RIGHT HAND PATENT AND INTACT WITH IV NS RUNNING AT 75CC/HR. WITH GT PATENT AND INTACT WITH NO RESIDUAL, FC DRAINING TO YELLOW COLORED URINE NO BLEEDING NOTED. WITH BILATERAL SOFT RESTRAIN IN PLACE. HOB ELEVATED. BED TO LOWEST POSITION AND LOCKED.
[2021-11-28 08:00] VITALS: BP 107/56
[2021-11-28] MEDS: LEVOTHYROXINE SODIUM 125 MCG TABLET GT SCH (08:31)
[2021-11-28] MEDS: FERROUS SULFATE UDC 300 MG/5 ML UDC GT SCH (08:31)
[2021-11-28] MEDS: VANCOMYCIN 0.75 GM in IV D5W 250 ML IV SCH ×2 (08:32→20:27)
[2021-11-28] MEDS: PANTOPRAZOLE 40 MG TABLET.DR PO SCH (08:32)
[2021-11-28] MEDS ORDERED: GLUCERNA 1.2 1,000 ML BOTTLE GT SCH (09:30)
--- NOTE | 2021-11-28 11:49 | NUR ---
RN NOTES SPOKE WITH DR. GONZALES. UPDATES GIVEN. NNO
[2021-11-28] MEDS: INSULIN REGULAR, HUMAN 100 UNIT/ML 3 ML VIAL SQ PRN ×3 (11:52→23:25)
[2021-11-28 12:00] VITALS: BP 96/54
[2021-11-28 12:53] LABS: BASOPHILS % (AUTO) 0.1 % (0.0-2.0); EOSINOPHILS % (AUTO) 0.6 % (0.0-6.0); HEMATOCRIT 22 % (39-51); HEMOGLOBIN 7.4 g/dL (13.5-17.5); LYMPHOCYTES # (AUTO) 0.3 K/uL (0.8-4.8); LYMPHOCYTES % (AUTO) 2.8 % (20.0-44.0); MEAN CORPUSCULAR HGB CONC 34 g/dl (31.0-36.0); MEAN CORPUSCULAR VOLUME 91 fL (80-96); MONOCYTES # (AUTO) 0.3 K/uL (0.1-1.30); MONOCYTES % (AUTO) 3.5 % (2.0-12.0); NEUTROPHILS # (AUTO) 9.1 K/uL (1.8-8.9); PLATELET COUNT (AUTO) 400 K/uL (150-450); RED BLOOD CELL COUNT(AUTO) 2.39 MIL/uL (4.5-6.0); WHITE BLOOD COUNT (AUTO) 9.8 K/uL (4.3-11.0)
[2021-11-28 13:10] LABS: CALCIUM, SERUM 8.5 mg/dL (8.5-10.1); POTASSIUM 3.4 mmol/L (3.5-5.1)
[2021-11-28 16:00] VITALS: BP 106/58
[2021-11-28 16:30] LABS: LYMPHOCYTES % (MANUAL) 4 % (16-48); MYELOCYTES % 1 % (0-0); NEUTROPHILS % (MANUAL) 95 (42-76)
[2021-11-28] MEDS: SOD FERRIC GLUC 125 MG in IV NS 0.9% 100 ML IV SCH (18:22)
--- NOTE | 2021-11-28 18:34 | NUR ---
POWDER ROOM ATTENDANT CLOSING NOTES PATIENT IN BED SEMI FOWLERS POSITION. PATIENT TRACH TO VENT WITH VENT SETTINGS TOLERATED. PATIENT NOT IN DISTRESS, NO FACIAL GRIMACING NOTED. IV ACCESS RIGHT WRIST AND LFA PATENT AND INTACT. GT PATENT WITH TF GLUCERNA @ 60CC/HR TOLERATED WELL. KEPT HOB ELEVATED. SAFETY PRECAUTIONS ENFORCED WITH BED LOCKED AND AT LOWEST POSITION. SIDERAILS UP X2. WILL ENDORSE CONTINUITY OF CARE TO DAY SHIFT NURSE.
--- NOTE | 2021-11-28 19:41 | NUR ---
RN OPENING NOTES RECEIVED PATIENT IN BED, AWAKE, ALERT, ORIENTED X0, OPENING BOTH EYES TO PAINFUL STIMULI, NON-VERBAL, ON TRACH TO VENT VENT SETTINGS AC 16 FIO2 35% TV 450 PEEP 5, O2 SAT 100% AND PT TOLERATED WELL. IV ACCESS ON LFA #20G AND RT WRIST #24G INTACT ANDF PATENT. NO S/S OF INFILTRATIONS. NS RUNNING AT 75CC/HR. GTUBE FEEDING GLUCERNA @ 60CC/HR WELL TOLERATED WELL. NO RESIDUAL NOTED, HEADLEY CATHETER INTACT AND PATENT WITH YELLOWISH URINE. BILATERAL SOFT RESTRAIN IN PLACE. HOB ELEVATED. BED IN LOWEST POSITION AND LOCKED. PLACE CALL LIGHT WITH IN REACH. WILL CONTINUE TO MONITOR
[2021-11-28 20:00] VITALS: BP 104/66
--- NOTE | 2021-11-28 23:30 | NUR ---
RN NOTES: BLOOD SUGAR 150, 2 UNITS OF REGULAR INSULIN GIVEN PER SLIDING SCALE. NO S/S OF HYPER/HYPOGLYCEMIA. WILL CONTINUE TO MONITOR
[2021-11-29] VITALS: BP 110/66
[2021-11-29] MEDS: PIPERACILLIN /TAZOBACTAM 3.375 G in IV D5W 100 ML IV SCH ×2 (00:48→09:13)
[2021-11-29 04:00] VITALS: BP 123/74
[2021-11-29] MEDS: AMIODARONE HCL 200 MG TABLET GT SCH ×2 (04:57→12:30)
[2021-11-29] MEDS: BLOOD SUGAR DIAGNOSTIC 1 EACH STRIP IN SCH ×2 (06:14→12:26)
[2021-11-29] MEDS: INSULIN REGULAR, HUMAN 100 UNIT/ML 3 ML VIAL SQ PRN ×2 (06:16→12:28)
[2021-11-29 06:37] LABS: BASOPHILS # (AUTO) 0.1 K/uL (0.0-0.2); BASOPHILS % (AUTO) 0.5 % (0.0-2.0); EOSINOPHILS % (AUTO) 0.7 % (0.0-6.0); HEMATOCRIT 23 % (39-51); HEMOGLOBIN 7.8 g/dL (13.5-17.5); LYMPHOCYTES # (AUTO) 0.5 K/uL (0.8-4.8); LYMPHOCYTES % (AUTO) 4.4 % (20.0-44.0); MEAN CORPUSCULAR HGB CONC 34 g/dl (31.0-36.0); MEAN CORPUSCULAR VOLUME 91 fL (80-96); MONOCYTES # (AUTO) 0.5 K/uL (0.1-1.30); NEUTROPHILS # (AUTO) 9.8 K/uL (1.8-8.9); NEUTROPHILS % (AUTO) 89.4 % (43.0-81.0); PLATELET COUNT (AUTO) 431 K/uL (150-450); RED BLOOD CELL COUNT(AUTO) 2.51 MIL/uL (4.5-6.0); WHITE BLOOD COUNT (AUTO) 10.9 K/uL (4.3-11.0)
--- NOTE | 2021-11-29 06:40 | NUR ---
RN CLOSING NOTES PATIENT IN BED, ALERT, ORIENTED X0, OPENING BOTH EYES TO PAINFUL STIMULI, NON-VERBAL, ON TRACH TO VENT SETTING AC 16 FIO2 35% TV 450 PEEP 5, O2 SAT 100% AND PT TOLERATED WELL. IV ACCESS ON LFA #20G AND RT WRIST #24G INTACT AND PATENT. NO S/S OF INFILTRATIONS. NS RUNNING AT 75CC/HR. GTUBE FEEDING GLUCERNA 1.2 @ 60CC/HR WELL TOLERATED. NO RESIDUAL, ALL DUE MEDS GIVEN ORDERED. HEADLEY CATHETER INTACT AND PATENT WITH YELLOWISH URINE. BILATERAL SOFT RESTRAIN IN PLACE. RELEASED Q 2HOURS FOR CIRCULATIONS. BLOOD SUGAR AT 0600, 135, 2 UNITS OF REGULAR INSULIN GIVEN NO S/S OF HYPER/HYPOGLYCEMIA.HOB ELEVATED. BED IN LOWEST POSITION AND LOCKED. PLACE CALL LIGHT WITH IN REACH. WILL ENDORSE TO MORNING SHIFT NURSE.
[2021-11-29 07:17] LABS: CALCIUM, SERUM 8.6 mg/dL (8.5-10.1); MAGNESIUM 2.3 mg/dL (1.8-2.4); PHOSPHORUS 2.9 mg/dL (2.5-4.9); POTASSIUM 3.8 mmol/L (3.5-5.1)
[2021-11-29] MEDS ORDERED: LEVO125T GT (07:53)
[2021-11-29] MEDS ORDERED: LEVO500P10 IV (07:53)
--- NOTE | 2021-11-29 07:54 | NUR ---
MENTAL TELEPATHIST OPENING NOTES RECEIVED PATIENT IN BED, AWAKE, A/O X0, OPENING BOTH EYES AND AROUSABLE TO PAINFUL STIMULI, NON-VERBAL, ON TRACH TO VENT. VENT SETTINGS AC 16 FIO2 35% TV 450 PEEP 5, O2 SAT 100% AND PT TOLERATED WELL. IV ACCESS ON LFA #20G AND RT WRIST #24G INTACT AND PATENT FLUSHES WELL. NO S/S OF INFILTRATIONS. NS RUNNING AT 75CC/HR. GTUBE FEEDING GLUCERNA @ 60CC/HR WELL TOLERATED WELL. NO RESIDUAL NOTED, HEADLEY CATHETER INTACT AND PATENT WITH YELLOWISH URINE. BILATERAL SOFT RESTRAIN IN PLACE. HOB ELEVATED. BED IN LOWEST POSITION AND LOCKED. PLACED CALL LIGHT WITH IN REACH. WILL CONTINUE TO MONITOR.
[2021-11-29 08:00] VITALS: BP 123/74
[2021-11-29] MEDS: FERROUS SULFATE UDC 300 MG/5 ML UDC GT SCH (09:06)
[2021-11-29] MEDS: PANTOPRAZOLE 40 MG TABLET.DR PO SCH (09:06)
[2021-11-29] MEDS: LEVOTHYROXINE SODIUM 125 MCG TABLET GT SCH (09:09)
--- NOTE | 2021-11-29 09:58 | NUR ---
PER [facility] PCR NEGATIVE.
[2021-11-29] MEDS ORDERED: NEUTRA PHOS 1 POWD.PACKET GT ONE (10:00)
--- NOTE | 2021-11-29 10:46 | NUR ---
notified about discharge.
[2021-11-29] MEDS ORDERED: POTASSIUM CHLORIDE 20 MEQ POWDER PACKET GT SCH (11:00)
--- NOTE | 2021-11-29 11:38 | NUR ---
RN NOTES GAVE REPORT FOR TRANSFER TO [facility] [phone]
[2021-11-29 12:00] VITALS: BP 101/54
[2021-11-29 12:30] VITALS: BP 101/54
[2021-11-29] MEDS ORDERED: VANCOMYCIN 0.75 GM in IV D5W 250 ML IV SCH (21:00)
== END 2021-11-29 15:03 | DRG 871 ==
LOC: ER 18:46 → TRANSITION 22:49 → TELE-TD 11-27 08:01 → TELE1 11-28 15:11
PROVIDERS: ATTEND Nurse Practitioner Acute Care
PROC: 5A1945Z Respiratory Ventilation, 24-96 Consecutive Hours (ICD-10-PCS; principal; 2021-11-26)
PROC: 30233N1 Transfusion of Nonautologous Red Blood Cells into Peripheral Vein, Percutaneous Approach (ICD-10-PCS; 2021-11-26)
DX: A41.9 Sepsis, unspecified organism (principal); G93.41 Metabolic encephalopathy; N17.0 Acute kidney failure with tubular necrosis; J15.6 Pneumonia due to other Gram-negative bacteria; D68.59 Other primary thrombophilia; J96.10 Chronic respiratory failure, unspecified whether with hypoxia or hypercapnia; E44.0 Moderate protein-calorie malnutrition; J44.0 Chronic obstructive pulmonary disease with (acute) lower respiratory infection; Z99.11 Dependence on respirator [ventilator] status; C34.90 Malignant neoplasm of unspecified part of unspecified bronchus or lung; E87.1 Hypo-osmolality and hyponatremia; C32.1 Malignant neoplasm of supraglottis; Z20.822 Contact with and (suspected) exposure to COVID-19; I48.91 Unspecified atrial fibrillation; I10 Essential (primary) hypertension; Z93.0 Tracheostomy status; Z93.1 Gastrostomy status; R13.10 Dysphagia, unspecified; E11.9 Type 2 diabetes mellitus without complications; E03.9 Hypothyroidism, unspecified; Z79.4 Long term (current) use of insulin; Z79.51 Long term (current) use of inhaled steroids; Z79.899 Other long term (current) drug therapy; Z74.01 Bed confinement status; E88.09 Other disorders of plasma-protein metabolism, not elsewhere classified; D63.8 Anemia in other chronic diseases classified elsewhere; E61.1 Iron deficiency; E86.1 Hypovolemia; Y95 Nosocomial condition
CPT/HCPCS: 31720; 36415; 70450-TC; 71045-TC; 80048-TC; 80061-TC; 80076-TC; 80202-TC; 82728-TC; 82962-TC; 83540-TC; 83605-TC; 83735-TC; 84100-TC; 84439-TC; 84443-TC; 84484-TC; 85025-TC; 85027-TC; 85730-TC; 86850-TC; 87040-TC; 87081-TC; 87086-TC; 94002-TC; 94003-TC; 94760-TC; 94762-TC; 94799-TC; 99082-TC; C9803; G0378; J0692; J1815; J2405; J2543; J2916; J3370; J7030; J7050; J7060; P9016; U0003

== ENCOUNTER 2022-01-08 20:51 | Inpatient (IN) | payer MEDICARE, OTHER ==
[~2022-01-08] VITALS: Ht 175.3 cm; Wt 54.0 kg
[~2022-01-08 20:51] MED LIST changes: +ACET-2605 GT; +ACET-868 GT; +AMIO200T5 GT; +BISA10SU11 RC; +FERR300L GT; +GLUC1KIT IM; +INSU100V27 SQ; +LEVO125T GT; -LEVO25TA7 GT; +LEVO500P10 IV; +MAGN400O6 GT; +MULT-447 GT; +NA P133E RC; +PANT40SU2 GT
--- NOTE | 2022-01-08 21:11 | NUR ---
BIBPA FROM SNF FOR LOW H/H. VENT PT TOLERATING FIO2 45% AT 99%. CONNECTED PT TO POX AND MONITOR. SAFETY MEASURES IN PLACE.
--- NOTE | 2022-01-08 21:13 | NUR ---
PT TOLERATING VENT SETTINGS WELL AT FIO2 40% VT 450 RATE 16 FLOW 60L/MIN PEEP 5 PMAX 60. GTUBE PEG LLQ INTACT.
--- NOTE | 2022-01-08 21:13 | NUR ---
Clotilde blackwell in EDM - 01/09/22 at 0127 by JETHRO PT TOLERATING VENT SETTINGS WELL AT FIO2 40% VT 450 RATE 16 FLOW 60L/MIN PEEP 60 PMAX 60. GTUBE PEG LLQ INTACT.
--- NOTE | 2022-01-08 21:53 | NUR ---
RFA #18G S/L PATENT AND INTACT. BLOOD COLLECTED AND SENT TO LAB
[2022-01-08 22:22] LABS: BASOPHILS % (AUTO) 0.4 % (0.0-2.0); EOSINOPHILS % (AUTO) 1.9 % (0.0-6.0); HEMATOCRIT 21 % (39-51); LYMPHOCYTES # (AUTO) 0.4 K/uL (0.8-4.8); LYMPHOCYTES % (AUTO) 3.9 % (20.0-44.0); MEAN CORPUSCULAR HGB CONC 32 g/dl (31.0-36.0); MEAN CORPUSCULAR VOLUME 90 fL (80-96); MONOCYTES # (AUTO) 0.4 K/uL (0.1-1.30); MONOCYTES % (AUTO) 4.1 % (2.0-12.0); NEUTROPHILS # (AUTO) 9.2 K/uL (1.8-8.9); NEUTROPHILS % (AUTO) 89.7 % (43.0-81.0); PLATELET COUNT (AUTO) 394 K/uL (150-450); RED BLOOD CELL COUNT(AUTO) 2.34 MIL/uL (4.5-6.0); WHITE BLOOD COUNT (AUTO) 10.3 K/uL (4.3-11.0)
[2022-01-08] MEDS ORDERED: IV NS 0.9% 1,000 ML BAG IV ONE (22:30)
--- NOTE | 2022-01-08 22:32 | NUR ---
RFA #18G S/L; BLOOD, COVID ANTIGEN, AND RAPID INFLUENZA COLLECTED AND SENT TO LAB
--- NOTE | 2022-01-08 22:35 | NUR ---
URINE COLLECTED AND SENT TO LAB
[2022-01-08 22:37] LABS: CALCIUM, SERUM 8.6 mg/dL (8.5-10.1); CARBON DIOXIDE 32 mmol/L (21-32); CHLORIDE 97 mmol/L (98-107); CREATININE 0.8 mg/dL (0.6-1.3); GLUCOSE 106 mg/dL (74-106); POTASSIUM 4.9 mmol/L (3.5-5.1); SODIUM SERUM 131 mmol/L (136-145); UREA NITROGEN, BLOOD 25 mg/dL (7-18)
[2022-01-08 22:51] LABS: ALANINE AMINOTRANSFERASE 23 U/L (12-78); ALBUMIN 2.1 g/dL (3.4-5.0); ALKALINE PHOSPHATASE 121 U/L (46-116); ASPARTATE AMINOTRANSFERASE 19 U/L (15-37); BILIRUBIN,DIRECT 0.1 mg/dL (0.0-0.2); BILIRUBIN,TOTAL 0.3 mg/dL (0.2-1.0); TOTAL PROTEIN, SERUM 7.6 g/dL (6.4-8.2)
--- NOTE | 2022-01-08 22:51 | NUR ---
MRSA SWAB COLLECTED AND SENT TO LAB. PATIENT'S BELONGINGS LIST DONE.
[2022-01-08 22:55] LABS: BILIRUBIN,URINE NEGATIVE (NEGATIVE); COLOR,URINE YELLOW (YELLOW); LEUKOCYTE ESTERASE ,URINE NEGATIVE (NEGATIVE); NITRITE, URINE NEGATIVE (NEGATIVE); PH,URINE 7.5 (5.0-8.0); PROTEIN,URINE NEGATIVE (NEGATIVE); UGLUCOSE NEGATIVE (NEGATIVE); UROBILINOGEN,URINE 0.2 EU/dL (0.2)
[2022-01-08 23:18] LABS: HEMOGLOBIN 6.8 g/dL (13.5-17.5)
[2022-01-08 23:34] LABS: OCCULT BLOOD STOOL NEGATIVE (NEGATIVE)
[2022-01-09] VITALS (10 sets, daily range): BP systolic 85–104; BP diastolic 50–64
--- NOTE | 2022-01-09 01:25 | NUR ---
REPORT GIVEN TO LAKESHA DOAN RN
[2022-01-09] MEDS ORDERED: IPRATROPIUM NEB FS 0.5 MG/2.5 ML AMPUL.NEB IH PRN (01:30)
[2022-01-09] MEDS ORDERED: BISACODYL SUPP (10 MG) 10 MG/SUPP.RECT SUPP.RECT RC PRN (01:30)
[2022-01-09] MEDS ORDERED: ALBUTEROL FS 2.5 MG/0.5 ML VIAL.NEB NEB PRN (01:30)
[2022-01-09] MEDS ORDERED: ONDANSETRON HCL/PF 4 MG/2 ML VIAL IVP PRN (01:30)
[2022-01-09] MEDS ORDERED: Z GUARD REMEDY 4 OZ OINT TP PRN (01:30)
[2022-01-09] MEDS ORDERED: NA PHOS,M-B/NA PHOS,DI-BA 1 EA ENEMA RC PRN (01:30)
[2022-01-09] MEDS ORDERED: MAGNESIUM HYDROXIDE 30 ML UDC GT PRN (01:30)
[2022-01-09] MEDS ORDERED: LABETALOL 20 MG/4 ML VIAL IV PRN (01:30)
[2022-01-09] MEDS ORDERED: DEXTROSE 50%-WATER 50 ML DISP.SYRIN IV PRN (01:30)
[2022-01-09] MEDS ORDERED: GLUCERNA 1.5 1,000 ML BOTTLE GT SCH (01:30)
[2022-01-09] MEDS ORDERED: Medication Not On Formulary EA (Ipratropium/Albuterol Sulfate (Combivent Respimat 20-100 INH PRN (01:30)
[2022-01-09] MEDS ORDERED: MORPHINE SULFATE INJ 2 MG/ML DISP.SYRIN IV PRN (01:30)
[2022-01-09] MEDS ORDERED: hydrALAZINE HCL IV 20 MG VIAL IV PRN (01:30)
--- NOTE | 2022-01-09 01:35 | NUR ---
MARKETING INTERN AT PT'S BEDSIDE
--- NOTE | 2022-01-09 01:50 | NUR ---
RN NOTE RECEIVED PATIENT VIA LUISARGRISEL. A/OX1. PATIENT UNDERSTANDS TAGLOG, TRACKS WITH EYES, MOVES EYES BROWS FOR COMMUNICATION. ABLE TO MOVE BUE. ON MECHANICAL VENT AC 16, FIO2 40% TV 450 PEEP 5. NO RESPIRATORY DISTRESS. NO S/S PAIN NOTED. IV ACCESS IN RFA#18 AND RAC#18 PATENT AND SALINE LOCKED. GTUBE PRESENT, PHYSICAL ASSESSMENT COMPLETED AT THIS TIME. SKIN ASSESSMENT COMPLETED, PHOTOS TAKEN AND PLACED IN CHART. BELONGINGS LIST COMPLETED, VITAL SIGNS TAKEN BY INSIDE PLANT SUPERVISOR. BED IS LOW AND LOCKED, HOB ELEVATED IN SEMI FOWLERS, SIDE RAILS UP X2, CALL LIGHT WITHIN REACH. WILL MONITOR FOR CHANGES.
--- NOTE | 2022-01-09 01:55 | NUR ---
PT TRANSFERRED TO [facility] VIA ACLS PROTOCOL. VSS
[2022-01-09] MEDS ORDERED: ZOSYN IVPB 3.375 G in IV D5W 50ml IV ONE (02:00)
[2022-01-09 02:05] LABS: IRON, SERUM 17 ug/dl (50-175); TOTAL IRON BINDING CAPACITY 139 ug/dl (250-450)
[2022-01-09] MEDS: IV NS 0.9% 1,000 ML IV SCH ×2 (02:08→10:06)
--- NOTE | 2022-01-09 02:16 | NUR ---
SPOKE TO DR ARREGUIN, CT CHEST CAN BE DONE IN AM
--- NOTE | 2022-01-09 02:16 | NUR ---
PER DR. ARREGUIN, JOAQUÍNAY TO TO CT CHEST W/O CONTRAST LATER IN THE MORNING
[2022-01-09] MEDS ORDERED: PIPERACILLIN /TAZOBACTAM 3.375 G VIAL IV ONE (02:21)
--- NOTE | 2022-01-09 02:24 | NUR ---
RN NOTE INFORMED DR. GREEN THAT PATIENT BP IS 86/50 HR 100. ORDER RECEIVED TO GIVE 1L NS BOLUS. ALSO INFORMED DR THAT WE DO NOT CARRY GLUCERNA 1.5 ONLY CARRY 1.2. RECEIVED ORDER TO CHANGE GLUCERNA 1.2. ORDERS READ BACK NOTED AND CARRIED OUT.
[2022-01-09] MEDS ORDERED: IV NS 0.9% 1,000 ML IV ONE (02:30)
[2022-01-09] MEDS: PANTOPRAZOLE 40 MG VIAL IV SCH ×3 (02:31→17:00)
[2022-01-09 02:39] LABS: FERRITIN 1511 ng/mL (8-388)
--- NOTE | 2022-01-09 02:55 | NUR ---
RN NOTE INFORMED DR. GREEN PATIENT H/H IS 6.8. NO NEW ORDERS.
[2022-01-09] MEDS ORDERED: GLUCERNA 1.2 1,000 ML BOTTLE GT SCH ×2 (03:30→08:22)
[2022-01-09] MEDS: IPRATROPIUM NEB FS 0.5 MG/2.5 ML AMPUL.NEB IH SCH ×4 (04:04→19:14)
[2022-01-09] MEDS: ALBUTEROL FS 2.5 MG/0.5 ML VIAL.NEB NEB SCH ×4 (04:05→19:15)
[2022-01-09] MEDS ORDERED: Medication Not On Formulary EA (Ipratropium/Albuterol Sulfate (Combivent Respimat 20-100 INH SCH (06:00)
--- NOTE | 2022-01-09 07:30 | NUR ---
RN OPENING NOTE PATIENT RESTING IN BED UPON ASSESSMENT. PATIENT A/OX1. FOLLOWS SOME INSTRUCTION. REMAINS ON VENTSETTINGS PRESCRIBED. NO RESPIRATORY DISTRESS. NO S/S PAIN NOTED. IV ACCESS RUNNING NS@75ML/HR. GTUBE RUNNING GLUCERNA@60ML/HR. SINUS RHYTHM.SINUS TACHYCARDIA ON THE MONITOR. ALL SAFETY MEASURES NOTED AND ACCOUNTED FOR. BED IN LOW POSITION WHEELS LOCKED IN PLACE. CALL LIGHT WITHIN REACH. WILL CONTINUE TO MONITOR.
--- NOTE | 2022-01-09 07:37 | NUR ---
RN CLOSING NOTE PATIENT A/OX1, CONTINUES TO TRACK WITH HIS EYES, FOLLOWS SOME INSTRUCTION. REMAINS ON VENT, NO CHANGES. SECRETION THICK YELLOW. NO RESPIRATORY DISTRESS. NO S/S PAIN NOTED. IV ACCESS RUNNING NS@75ML/HR. GTUBE RUNNING GLUCERNA@60ML/HR. SINUS RHYTHM.SINUS TACHYCARDIA ON THE MONITOR. PENDING WOUND CONSULT FOR NECK REDNESS. ENDORSED TO ONCOMING SHIFT.
[2022-01-09] MEDS: LEVOTHYROXINE SODIUM 75 MCG TABLET GT SCH (07:45)
[2022-01-09] MEDS: BLOOD SUGAR DIAGNOSTIC 1 EACH STRIP VI SCH ×4 (07:59→23:15)
[2022-01-09] MEDS: POLYETHYLENE GLYCOL 3350 17 GM POWD.PACK GT SCH (09:08)
[2022-01-09] MEDS: MULTIVIT W/MINERALS 1 TAB TABLET GT SCH (09:08)
[2022-01-09] MEDS: AMIODARONE HCL 200 MG TABLET GT SCH (09:08)
[2022-01-09] MEDS: CHLORHEXIDINE GLUCONATE 15 ML UDC MM SCH ×2 (09:08→17:21)
[2022-01-09] MEDS: FERROUS SULFATE UDC 300 MG/5 ML UDC GT SCH (09:08)
[2022-01-09] MEDS: INSULIN REGULAR, HUMAN 100 UNIT/ML 3 ML VIAL SQ PRN (10:19)
[2022-01-09] MEDS: ACETAMINOPHEN 325 MG TABLET PO PRN (11:38)
[2022-01-09 13:32] LABS: BAND % (MANUAL) 7 % (0.0-5.0); EOSINOPHILS % (MANUAL) 2 % (0-4); LYMPHOCYTES % (MANUAL) 4 % (16-48); MONOCYTES % (MANUAL) 2 % (0-11.0); MYELOCYTES % 2 % (0-0); NEUTROPHILS % (MANUAL) 82 (42-76)
[2022-01-09] MEDS: PIPERACILLIN /TAZOBACTAM 3.375 G in IV D5W 100 ML IV SCH ×2 (14:57→20:19)
--- NOTE | 2022-01-09 18:49 | NUR ---
RN CLOSING NOTE PT REMAINED STABLE THROUGHOUT SHIFT. PATIENT A/OX1. FOLLOWS SOME INSTRUCTION. REMAINS ON VENTSETTINGS PRESCRIBED. NO RESPIRATORY DISTRESS. NO S/S PAIN NOTED. IV ACCESS RUNNING NS@75ML/HR G TUBE PULLED OUT DURING SHIFT. [address] HEADLEY CURRENTLY IN PLACE. SINUS RHYTHM.SINUS TACHYCARDIA ON THE MONITOR. ALL NEEDS MET AND MEDS ADM PER MD ORDER. ALL SAFETY MEASURES NOTED AND ACCOUNTED FOR. BED IN LOW POSITION WHEELS LOCKED IN PLACE. CALL LIGHT WITHIN REACH. WILL ENDORSE TO GREEN CHAIN WORKER RN.
[2022-01-09] MEDS ORDERED: DIATR MEGLU/DIATRIZOATE SODIUM 120 ML BOTTLE (GASTROGRAPHIN) ONE (19:14)
[2022-01-09] MEDS ORDERED: PANTOPRAZOLE 40 MG VIAL IV SCH (20:00)
[2022-01-09] MEDS: *INSULIN REGULAR(HUMULIN R)HUM 100 UNIT/ML VIAL SQ PRN (23:15)
[2022-01-10] VITALS (11 sets, daily range): BP systolic 95–118; BP diastolic 51–62
[2022-01-10] MEDS: IPRATROPIUM NEB FS 0.5 MG/2.5 ML AMPUL.NEB IH SCH ×4 (01:12→19:40)
[2022-01-10] MEDS: ALBUTEROL FS 2.5 MG/0.5 ML VIAL.NEB NEB SCH ×4 (01:12→19:40)
--- NOTE | 2022-01-10 02:13 | NUR ---
INFORMED SAW TURPIN DNP THAT STILL AWAITING FOR RESULTS FOR KUB AFTER GT REPLACED, XRAYS TOOK AROUND 1900, ALREADY REMIND RADIOLOGY 2X, THEY STATED THEY WILL F/U WITH RESULTS, TILL NOW NO RESULTS AVAILABLE, SUGGESTED DYANA DEXTROSE IVF ADMINISTRATION SINCE PATIENT IS DIABETIC, PER DYANA NO NEED FOR DEXTROSE IF BLOOD SUGAR IS WNL, WILL CONTINUE TO MONITOR CLOSELY.
[2022-01-10] MEDS: PIPERACILLIN /TAZOBACTAM 3.375 G in IV D5W 100 ML IV SCH ×3 (05:51→21:40)
[2022-01-10] MEDS: GLUCERNA 1.2 1,000 ML BOTTLE GT SCH (06:00)
[2022-01-10 06:52] LABS: BASOPHILS % (AUTO) 0.4 % (0.0-2.0); HEMATOCRIT 22 % (39-51); HEMOGLOBIN 7.3 g/dL (13.5-17.5); LYMPHOCYTES # (AUTO) 0.3 K/uL (0.8-4.8); LYMPHOCYTES % (AUTO) 3.7 % (20.0-44.0); MEAN CORPUSCULAR HGB CONC 33 g/dl (31.0-36.0); MEAN CORPUSCULAR VOLUME 90 fL (80-96); MONOCYTES # (AUTO) 0.4 K/uL (0.1-1.30); MONOCYTES % (AUTO) 4.1 % (2.0-12.0); NEUTROPHILS # (AUTO) 8.1 K/uL (1.8-8.9); NEUTROPHILS % (AUTO) 90.8 % (43.0-81.0); PLATELET COUNT (AUTO) 338 K/uL (150-450); RED BLOOD CELL COUNT(AUTO) 2.47 MIL/uL (4.5-6.0); WHITE BLOOD COUNT (AUTO) 8.9 K/uL (4.3-11.0)
--- NOTE | 2022-01-10 07:30 | NUR ---
RN CLOSING NOTES, PATIENT CONT ON MECHANICAL VENTILATOR, NO SIGNIFICANT CHANGE IN CONDITION, RECEIVED REPORT FROM KURamonita AT 0600, GT IN PLACED, WILL START GTF, CALL LIGHT W/I REACH, BED LOCKED AND LOWEST POSITION, CALL LIGHT W/I REACH, S/R OF BED X2 UP, WILL ENDORSE CONTINUITY OF CARE TO ONCOMING NURSE.
[2022-01-10 07:42] LABS: ALBUMIN 1.8 g/dL (3.4-5.0); BILIRUBIN,TOTAL 0.5 mg/dL (0.2-1.0); CREATININE 0.8 mg/dL (0.6-1.3); MAGNESIUM 2.4 mg/dL (1.8-2.4); PHOSPHORUS 2.7 mg/dL (2.5-4.9); POTASSIUM 3.9 mmol/L (3.5-5.1); TOTAL PROTEIN, SERUM 6.8 g/dL (6.4-8.2)
--- NOTE | 2022-01-10 07:49 | NUR ---
RN OPENING NOTE RECEIVED PATIENT RESTING IN BED A/OX1. FOLLOWS SOME INSTRUCTION. ON MECHANICAL VENT SETTINGS PRESCRIBED. NO RESPIRATORY DISTRESS. NO S/S PAIN NOTED. IV ACCESS RIGHT AC. RUNNING NORMAL SALINE AT 75 MLS/HR. [address] FANG CURRENTLY IN PLACE. SAFETY MEASURE IN PLACE BED IN LOW POSITION WHEELS LOCKED IN PLACE. CALL LIGHT WITHIN REACH.
[2022-01-10] MEDS: PANTOPRAZOLE 40 MG VIAL IV SCH (08:18)
[2022-01-10] MEDS: FERROUS SULFATE UDC 300 MG/5 ML UDC GT SCH (08:18)
[2022-01-10] MEDS: CHLORHEXIDINE GLUCONATE 15 ML UDC MM SCH ×2 (08:18→17:26)
[2022-01-10] MEDS: LEVOTHYROXINE SODIUM 75 MCG TABLET GT SCH (08:18)
[2022-01-10] MEDS: BLOOD SUGAR DIAGNOSTIC 1 EACH STRIP VI SCH ×4 (08:18→22:17)
[2022-01-10] MEDS: POLYETHYLENE GLYCOL 3350 17 GM POWD.PACK GT SCH (08:18)
[2022-01-10] MEDS: AMIODARONE HCL 200 MG TABLET GT SCH (08:19)
[2022-01-10] MEDS: MULTIVIT W/MINERALS 1 TAB TABLET GT SCH (08:19)
[2022-01-10] MEDS: PANTOPRAZOLE 40 MG/PACK PACK GT SCH (08:35)
[2022-01-10] MEDS: HYDROCODONE/APAP 5/325MG TABLET GT PRN (11:17)
[2022-01-10] MEDS: *INSULIN REGULAR(HUMULIN R)HUM 100 UNIT/ML VIAL SQ PRN ×2 (11:50→22:19)
[2022-01-10 14:07] LABS: HEMOGLOBIN 6.8 g/dL (13.5-17.5)
--- NOTE | 2022-01-10 14:20 | NUR ---
RN NOTE RECEIVED CRITICAL LAB OF HGB 6.8. INFORMED PROVIDER BRUNA. RECEIVED ORDER TO ADMINISTER ONE UNIT OF PRBC
[2022-01-10 15:13] LABS: BAND % (MANUAL) 1 % (0.0-5.0); LYMPHOCYTES % (MANUAL) 6 % (16-48); NEUTROPHILS % (MANUAL) 87 (42-76)
[2022-01-10 15:14] LABS: MONOCYTES % (MANUAL) 2 % (0-11.0); REACTIVE LYMPHOCYTES 2 % (0-0)
[2022-01-10 15:15] LABS: BASOPHILS % (MANUAL) 1 % (0.0-2.0); EOSINOPHILS % (MANUAL) 1 % (0-4)
[2022-01-10] MEDS: ACETAMINOPHEN 325 MG TABLET PO PRN (17:27)
[2022-01-10] MEDS: INSULIN REGULAR, HUMAN 100 UNIT/ML 3 ML VIAL SQ PRN (17:28)
--- NOTE | 2022-01-10 18:54 | NUR ---
RN CLOSING NOTE RECEIVED PATIENT RESTING IN BED A/OX1. FOLLOWS SOME INSTRUCTION. ON MECHANICAL VENT SETTINGS PRESCRIBED. NO RESPIRATORY DISTRESS. NO S/S PAIN NOTED. IV ACCESS RIGHT AC AND WRIST. CURRENTLY RUNNING ONE UNIT OF PRBC RUNNING 150MLS/HR. NO REACTION NOTED.GLUCERNA RUNNING AT 75MLS.HR WITH NO RESIDUAL. SAFETY MEASURE IN PLACE BED IN LOW POSITION WHEELS LOCKED IN PLACE. CALL LIGHT WITHIN REACH.
--- NOTE | 2022-01-10 19:30 | NUR ---
RN OPENING NOTES RECEIVED PATIENT IN BED RESTING, AWAKE, A/OX1 AND RESPONSIVE TO PAINFUL STIMULI. ON TRACH TO MECHANICAL VENT SETTINGS AND PT TOLERATED WELL. BREATHING EVEN AND UNLABORED. NO RESPIRATORY DISTRESS IV ACCESS RIGHT AC AND FOREARM INTACT AND PATENT. NO S/S OF INFILTRATIONS. RUNNING ONE UNIT OF PRBC RUNNING 150MLS/HR. NO ADVERSE REACTION NOTED. GLUCERNA RUNNING AT 60 ML/HR. NO C/O PAIN OR DISCOMFORT. ALL SAFETY MEASURE IN PLACE. BED IN LOWEST POSITION AND LOCKED. SIDE RAILS UP X2, PLACE CALL LIGHT WITHIN REACH. WILL CONTINUE TO MONITOR
--- NOTE | 2022-01-10 19:41 | NUR ---
PT RCVD TRACHED WITH PORTEX 7 ON [facility] VENT WITH THE SETTINGS OF AC 16, VT 450, FIO2 40% PEEP 5. TRACH IS PATENT AND SECURED. PT IS AWAKE , ALERT, NON VERBAL AND RESPOND TO STIMULI . Q6 BREATHING TX GIVEN PER MD'S ORDER. NO ADVERSE REACTION NOTED. SUCTIONED MODERATE AMOUNT OF NUÑEZ THICK SECRETIONS. VENT IS PLUGGED INTO RED WALL OUTLET AND VENT ALARMS ARE ON AND AUDIBLE. NO RESPIRATORY DISTRESS NOTED AT THIS TIME. WILL CONTINUE TO MONITOR T/O SHIFT.
[2022-01-10 21:39] LABS: HEMOGLOBIN 8.7 g/dL (13.5-17.5)
--- NOTE | 2022-01-10 21:55 | NUR ---
RN NOTES: PT'S 1 UNIT OF PRBC TRANSFUSION COMPLETED AT 2150. NO ADVERSE REACTION NOTED. V/S STABLE. PT TOLERATED WELL. REMAIN AFEBRILE. WILL CONTINUE TO MONITOR
[2022-01-11] VITALS: BP 124/68
[2022-01-11] MEDS: ALBUTEROL FS 2.5 MG/0.5 ML VIAL.NEB NEB SCH ×4 (01:20→19:59)
[2022-01-11] MEDS: IPRATROPIUM NEB FS 0.5 MG/2.5 ML AMPUL.NEB IH SCH ×4 (01:21→19:59)
[2022-01-11 04:00] VITALS: BP 110/56
[2022-01-11] MEDS: PIPERACILLIN /TAZOBACTAM 3.375 G in IV D5W 100 ML IV SCH ×3 (04:31→20:57)
[2022-01-11] MEDS: HYDROCODONE/APAP 5/325MG TABLET GT PRN ×3 (04:32→20:58)
--- NOTE | 2022-01-11 04:36 | NUR ---
RN NOTES: PT C/O GENERALIZED BODY PAIN, ASKED FOR PAIN MEDICATION BY WRITING. NORCO GIVEN PRN ORDERED. WILL CONTINUE TO MONITOR
--- NOTE | 2022-01-11 06:52 | NUR ---
RN OPENING NOTES PATIENT IN BED RESTING, AWAKE, A/OX1 AND RESPONSIVE TO PAINFUL STIMULI. ON TRACH TO MECHANICAL VENT SETTINGS AND PT TOLERATED WELL. BREATHING EVEN AND UNLABORED. NO RESPIRATORY DISTRESS. IV ACCESS RIGHT AC AND FOREARM INTACT AND PATENT. NEW SALINE LOCK ON LFA#20G. NO S/S OF INFILTRATIONS. GLUCERNA RUNNING AT 60 ML/HR. NO C/O PAIN OR DISCOMFORT. NO ACUTE DISTRESS. ALL SAFETY MEASURE IN PLACE. BED IN LOWEST POSITION AND LOCKED. SIDE RAILS UP X2, PLACE CALL LIGHT WITHIN REACH. WILL ENDORSE TO MORNING SHIFT NURSE. Addendum: 01/11/22 at 0654 by VALENTINE FARAH RN WRONG
--- NOTE | 2022-01-11 07:00 | NUR ---
PATIENT IN BED RESTING, ASLEEP A/OX1 AND RESPONSIVE TO PAINFUL STIMULI. ON TRACH TO MECHANICAL VENT SETTINGS AND PT TOLERATED WELL. BREATHING EVEN AND UNLABORED. NO RESPIRATORY DISTRESS. IV ACCESS RIGHT AC AND FOREARM INTACT AND PATENT. NEW SALINE LOCK ON LFA#20G. NO S/S OF INFILTRATIONS. GLUCERNA RUNNING AT 60 ML/HR. NO C/O PAIN OR DISCOMFORT. NO ACUTE DISTRESS. ALL SAFETY MEASURE IN PLACE. BED IN LOWEST POSITION AND LOCKED. SIDE RAILS UP X2, PLACE CALL LIGHT WITHIN REACH. WILL ENDORSE TO MORNING SHIFT NURSE.
[2022-01-11 07:35] LABS: HEMOGLOBIN 8.7 g/dL (13.5-17.5)
[2022-01-11 08:00] VITALS: BP 124/81
--- NOTE | 2022-01-11 08:56 | NUR ---
WOUND CARE CONSULT: PT SEEN FOR REDNESS TO NECK. PT HAS TRACH AND SOME HYPERGRANULAR TISSUE/LESION ABOVE TRACH SITE, PRESENT ON ADMISSION. DR HEIDI KOO CALLED FOR SURGICAL CONSULT. RECOMMENDATIONS MADE FOR SKIN PROTECTION. DISCUSSED WITH NURSING STAFF. PT IS INCONTINENT. PT IS ON FIDELINA ISOFLEX LOW AIRLOSS BED. MD IN AGREEMENT WITH PLAN OF CARE.
[2022-01-11] MEDS: PANTOPRAZOLE 40 MG/PACK PACK GT SCH (08:58)
[2022-01-11] MEDS: POLYETHYLENE GLYCOL 3350 17 GM POWD.PACK GT SCH (08:59)
[2022-01-11] MEDS: MULTIVIT W/MINERALS 1 TAB TABLET GT SCH (08:59)
[2022-01-11] MEDS: FERROUS SULFATE UDC 300 MG/5 ML UDC GT SCH (08:59)
[2022-01-11] MEDS: CHLORHEXIDINE GLUCONATE 15 ML UDC MM SCH ×2 (08:59→16:27)
[2022-01-11] MEDS: AMIODARONE HCL 200 MG TABLET GT SCH (08:59)
[2022-01-11] MEDS: BLOOD SUGAR DIAGNOSTIC 1 EACH STRIP VI SCH ×4 (09:01→21:31)
[2022-01-11] MEDS: LEVOTHYROXINE SODIUM 75 MCG TABLET GT SCH (09:02)
[2022-01-11 12:00] VITALS: BP 99/56
[2022-01-11 13:15] LABS: HEMOGLOBIN 8.3 g/dL (13.5-17.5)
[2022-01-11 16:00] VITALS: BP 107/66
[2022-01-11] MEDS: INSULIN REGULAR, HUMAN 100 UNIT/ML 3 ML VIAL SQ PRN (16:52)
--- NOTE | 2022-01-11 17:00 | NUR ---
CONDOM CATHETER PLACED.
--- NOTE | 2022-01-11 18:41 | NUR ---
RN CLOSING NOTES PT IN BED, AWAKE. AOx2-3, WITH CONFUSION AND HALLUCINATIONS. ON 2LPM VIA NC AND TOLERATING WELL. NO SOB NOTED. NO S/SX OF RESPIRATORY DISTRESS NOTED. TELE MONITOR DETECTS SINUS RHYTHM. IV ACCESS RU MIDLINE #18 PLACED BY KIKA BARROS. IV IS INTACT, PATENT, AND FLUSHING WELL. ALL NEEDS MET. PT KEPT CLEAN AND DRY. TREATED PAIN THROUGHOUT SHIFT. SAFETY PRECAUTIONS IN PLACE: BED IN LOWEST, LOCKED POSITION, SIDERAILS UPx2, AND BRAKES ON. TABLE AND CALL LIGHT WITHIN REACH. WILL ENDORSE TO ONCOMING SHIFT FOR LAURA.
[2022-01-11 20:00] VITALS: BP 100/57
--- NOTE | 2022-01-11 20:00 | NUR ---
RN Opening Notes Received pt AOx1. Pt is non verbal but able to mumble words. Pt with trach, on vent, tolerating well. O2 sat at 100%. SR on tele monitor with HR of 80. GT intact. Feeding on hold for 4 hours. IV on LFA, patent and intact, flushes well. Condom cath in place. All safety measures in place. Will continue to monitor.
[2022-01-11] MEDS: GLUCERNA 1.2 1,000 ML BOTTLE GT SCH (20:58)
[2022-01-11] MEDS: *INSULIN REGULAR(HUMULIN R)HUM 100 UNIT/ML VIAL SQ PRN (21:33)
[2022-01-11 21:37] LABS: HEMOGLOBIN 8.8 g/dL (13.5-17.5)
[2022-01-12] VITALS: BP 104/58
[2022-01-12] MEDS: IPRATROPIUM NEB FS 0.5 MG/2.5 ML AMPUL.NEB IH SCH ×3 (00:58→13:52)
[2022-01-12] MEDS: ALBUTEROL FS 2.5 MG/0.5 ML VIAL.NEB NEB SCH ×3 (00:58→13:52)
--- NOTE | 2022-01-12 02:30 | NUR ---
RN NOTE PT WITH CONDOM CATH, NO URINE OUTPUT NOTED. >300ML ON BLADDER SCAN. COMMERCIAL APPRAISER BUS CLEANER NOTIFIED. ORDERED TO INSERT STRAIGHT CATH. PT FINALLY URINATE BEFORE INSERTING THE CATH. PUT BACK ON CONDOM CATH WILL CONTINUE TO MONITOR.
--- NOTE | 2022-01-12 02:37 | NUR ---
RN NOTE PT COMPLAINED OF SEVERE PAIN IN NECK AREA. PT REFUSED MORPHINE. NORCO NOT DUE YET. PT VERBALIZES UNDERSTANDING. WILL WAIT UNTIL DUE
[2022-01-12] MEDS: HYDROCODONE/APAP 5/325MG TABLET GT PRN ×2 (03:24→09:59)
[2022-01-12 04:00] VITALS: BP 100/57
[2022-01-12] MEDS: PIPERACILLIN /TAZOBACTAM 3.375 G in IV D5W 100 ML IV SCH (05:39)
[2022-01-12 06:46] LABS: HEMOGLOBIN 8.4 g/dL (13.5-17.5)
--- NOTE | 2022-01-12 07:00 | NUR ---
RN NOTE PT SLEEPING. APPEARS TO BE COMFORTABLE. DENIES PAIN AT THIS TIME. TOLERATING VENT SETTING. 100% O2 SAT. NOT IN ANY DISTRESS. TOLERATING GT FEEDINGS NO RESIDUALS NOTED. KEPT HOB ELEVATED. IV ATB ZOSYN RUNNING. NO SIGNS OF INFILTRATION. WILL ENDORSE TO NEXT SHIFT NURSE FOR LAURA.
--- NOTE | 2022-01-12 07:37 | NUR ---
RN OPENING NOTE PATIENT RECEIVED IN BED, RESTING, EYES CLOSED. PATIENT ON MECHANICAL VENTILATOR SATING 100%. G TUBE IN PLACE RUNNING GLUCERNA AT 60CC/HR. LEFT FA 20G IV IN PLACE, PATENT. NO SIGNS OF ACUTE DISTRESS NOTED AT THIS TIME, BED LOCKED AND IN LOWEST POSITION, CALL LIGHT WITHIN REACH, 2 SIDE RAILS UP. WILL CONTINUE TO MONITOR.
[2022-01-12 08:00] VITALS: BP 111/66
[2022-01-12] MEDS: BLOOD SUGAR DIAGNOSTIC 1 EACH STRIP VI SCH ×2 (08:03→11:54)
[2022-01-12] MEDS: PANTOPRAZOLE 40 MG/PACK PACK GT SCH (08:07)
[2022-01-12] MEDS: LEVOTHYROXINE SODIUM 75 MCG TABLET GT SCH (08:07)
[2022-01-12] MEDS: CHLORHEXIDINE GLUCONATE 15 ML UDC MM SCH (08:07)
[2022-01-12] MEDS: MULTIVIT W/MINERALS 1 TAB TABLET GT SCH (08:07)
[2022-01-12] MEDS: POLYETHYLENE GLYCOL 3350 17 GM POWD.PACK GT SCH (08:07)
[2022-01-12] MEDS: FERROUS SULFATE UDC 300 MG/5 ML UDC GT SCH (08:07)
[2022-01-12] MEDS: INSULIN REGULAR, HUMAN 100 UNIT/ML 3 ML VIAL SQ PRN ×2 (08:08→12:15)
[2022-01-12] MEDS: AMIODARONE HCL 200 MG TABLET GT SCH (08:08)
[2022-01-12 12:00] VITALS: BP 99/55
[2022-01-12 12:52] LABS: HEMOGLOBIN 8.5 g/dL (13.5-17.5)
--- NOTE | 2022-01-12 15:45 | NUR ---
RN NOTE PATIENT DISCHARGED PER ORDER. PATIENT MEDICALLY STABLE AT TIME OF DISCHARGE. ROLL EXAMINER BY AMBULANCE CREW. REPORT GIVEN TO CAROLYN AT [facility].
== END 2022-01-12 16:00 | DRG 871 ==
LOC: ER 20:59 → TELE1 01-09 00:41
PROVIDERS: ADMIT Nurse Practitioner Acute Care; ATTEND Nurse Practitioner Acute Care
PROC: 5A1945Z Respiratory Ventilation, 24-96 Consecutive Hours (ICD-10-PCS; principal; 2022-01-09)
PROC: 30233N1 Transfusion of Nonautologous Red Blood Cells into Peripheral Vein, Percutaneous Approach (ICD-10-PCS; 2022-01-09)
PROC: 30233N1 Transfusion of Nonautologous Red Blood Cells into Peripheral Vein, Percutaneous Approach (ICD-10-PCS; 2022-01-09)
PROC: 0D20XUZ Change Feeding Device in Upper Intestinal Tract, External Approach (ICD-10-PCS; 2022-01-09)
DX: A41.9 Sepsis, unspecified organism (principal); J69.0 Pneumonitis due to inhalation of food and vomit; J96.20 Acute and chronic respiratory failure, unspecified whether with hypoxia or hypercapnia; N17.0 Acute kidney failure with tubular necrosis; J15.9 Unspecified bacterial pneumonia; J15.6 Pneumonia due to other Gram-negative bacteria; E43 Unspecified severe protein-calorie malnutrition; Z99.11 Dependence on respirator [ventilator] status; G93.40 Encephalopathy, unspecified; D68.59 Other primary thrombophilia; C34.90 Malignant neoplasm of unspecified part of unspecified bronchus or lung; R64 Cachexia; J44.0 Chronic obstructive pulmonary disease with (acute) lower respiratory infection; J95.851 Ventilator associated pneumonia; Z93.0 Tracheostomy status; D64.9 Anemia, unspecified; E11.9 Type 2 diabetes mellitus without complications; Z51.5 Encounter for palliative care; Z66 Do not resuscitate; Z85.118 Personal history of other malignant neoplasm of bronchus and lung; Z20.822 Contact with and (suspected) exposure to COVID-19; Z93.1 Gastrostomy status; R13.10 Dysphagia, unspecified; I10 Essential (primary) hypertension; I48.91 Unspecified atrial fibrillation; Z85.21 Personal history of malignant neoplasm of larynx; E03.9 Hypothyroidism, unspecified; Z79.4 Long term (current) use of insulin; Z79.51 Long term (current) use of inhaled steroids; Z79.899 Other long term (current) drug therapy; C32.1 Malignant neoplasm of supraglottis; R59.0 Localized enlarged lymph nodes; Z74.09 Other reduced mobility; E88.09 Other disorders of plasma-protein metabolism, not elsewhere classified; Y95 Nosocomial condition; Z74.01 Bed confinement status; Z79.890 Hormone replacement therapy; Z87.01 Personal history of pneumonia (recurrent); Z87.891 Personal history of nicotine dependence; Y84.8 Other medical procedures as the cause of abnormal reaction of the patient, or of later complication, without mention of misadventure at the time of the procedure; Y82.8 Other medical devices associated with adverse incidents; Y92.129 Unspecified place in nursing home as the place of occurrence of the external cause; S11.90XA Unspecified open wound of unspecified part of neck, initial encounter; X58.XXXA Exposure to other specified factors, initial encounter
CPT/HCPCS: 31720; 36415; 71045-TC; 71250-TC; 74018; 80048-TC; 80053-TC; 80076-TC; 82272-TC; 82728-TC; 82962-TC; 83540-TC; 83605-TC; 83735-TC; 83880; 84100-TC; 84484-TC; 85025-TC; 85027-TC; 85730-TC; 86850-TC; 87040-TC; 87081-TC; 87086-TC; 94003-TC; 94760-TC; 94762-TC; 94799-TC; A4349; A4623; A7526; C9113; C9803; G0378; J1815; J2270; J2543; J7030; J7050; J7060; P9016; Q9963

== ENCOUNTER 2022-03-13 09:51 | Inpatient (IN) | payer MEDICARE, OTHER ==
[~2022-03-13] VITALS: Ht 167.6 cm; Wt 64.9 kg
[2022-03-13] MEDS ORDERED: DEXTROSE 50%-WATER 50 ML DISP.SYRIN ONE (10:11)
--- NOTE | 2022-03-13 10:11 | NUR ---
BIB RA 77 FROM [facility] WITH THE CONCERNED OF BLEEDING FROM THE TRACH SITE FOR X2DAYS, BLEEDING AT THE SITE IN MINIMAL UPON ADMISISON. FACILITY STATED THAT PT HAS LOW HEMOGLOBIN AND HEMATOCRIT LEVELS. PT HAS G TUBE IN PLACE, ATCCHED TO MONITOR. BLOOD GLUCOSE IS 62, MD AWARE. IV ESTABLISHED R HAND 20G. AWAITING MD FALCON. VENT SETTINGS: MODE A/C VC FIO2: 50 TIDAL VOLUME: 500 RATE: 20 FLOW: 60 PEEP: 5 PMAX 60
[2022-03-13] MEDS ORDERED: DEXTROSE 50%-WATER 50 ML DISP.SYRIN IV ONE (10:30)
--- NOTE | 2022-03-13 10:45 | NUR ---
RAPID COVID SWAB DONE AND SENT TO LAB
[2022-03-13 11:14] LABS: BASOPHILS # (AUTO) 0.1 K/uL (0.0-0.2); BASOPHILS % (AUTO) 0.6 % (0.0-2.0); EOSINOPHILS % (AUTO) 2.8 % (0.0-6.0); HEMATOCRIT 24 % (39-51); HEMOGLOBIN 7.9 g/dL (13.5-17.5); LYMPHOCYTES # (AUTO) 0.3 K/uL (0.8-4.8); LYMPHOCYTES % (AUTO) 3.2 % (20.0-44.0); MEAN CORPUSCULAR HGB CONC 32 g/dl (31.0-36.0); MEAN CORPUSCULAR VOLUME 92 fL (80-96); MONOCYTES # (AUTO) 0.4 K/uL (0.1-1.30); MONOCYTES % (AUTO) 4.1 % (2.0-12.0); NEUTROPHILS # (AUTO) 9.2 K/uL (1.8-8.9); NEUTROPHILS % (AUTO) 89.3 % (43.0-81.0); PLATELET COUNT (AUTO) 166 K/uL (150-450); RED BLOOD CELL COUNT(AUTO) 2.66 MIL/uL (4.5-6.0); WHITE BLOOD COUNT (AUTO) 10.3 K/uL (4.3-11.0)
[2022-03-13 11:19] LABS: ALANINE AMINOTRANSFERASE 9 U/L (12-78); ALKALINE PHOSPHATASE 140 U/L (46-116); ASPARTATE AMINOTRANSFERASE 20 U/L (15-37); BILIRUBIN,DIRECT 0.1 mg/dL (0.0-0.2); BILIRUBIN,TOTAL 0.2 mg/dL (0.2-1.0); CALCIUM, SERUM 9.3 mg/dL (8.5-10.1); CARBON DIOXIDE 25 mmol/L (21-32); CHLORIDE 105 mmol/L (98-107); CREATININE 1.8 mg/dL (0.6-1.3); GLUCOSE 140 mg/dL (74-106); POTASSIUM 3.7 mmol/L (3.5-5.1); SODIUM SERUM 136 mmol/L (136-145); TOTAL PROTEIN, SERUM 6.4 g/dL (6.4-8.2); UREA NITROGEN, BLOOD 52 mg/dL (7-18)
[2022-03-13] MEDS ORDERED: DOCU-141 GT (11:23)
[2022-03-13] MEDS ORDERED: HYDR-4303 GT (11:23)
[2022-03-13] MEDS ORDERED: LACT100027 GT (11:23)
[2022-03-13] MEDS ORDERED: BUME0.253 IV (11:23)
[2022-03-13] MEDS ORDERED: INSU10VI3 SQ (11:23)
[2022-03-13] MEDS ORDERED: LEVO150T8 GT (11:23)
[2022-03-13] MEDS ORDERED: INSU100V43 SQ (11:23)
[2022-03-13] MEDS ORDERED: RIVA10TA GT (11:23)
[2022-03-13] MEDS ORDERED: GUAI600T31 GT (11:23)
[2022-03-13] MEDS ORDERED: CEFE2VIA3 IV (11:23)
[2022-03-13] MEDS ORDERED: IV NS 0.9% 500 ML BAG IV ONE (12:00)
[2022-03-13] MEDS ORDERED: LEVOFLOXACIN 750 MG /D5W 150ML 150 ML IV ONE ×2 (12:00→12:01)
[2022-03-13] MEDS ORDERED: VANCOMYCIN 1 GM in IV D5W 250 ML IV ONE (12:00)
[2022-03-13] MEDS ORDERED: PIPERACILLIN /TAZOBACTAM 3.375 G in IV D5W 50 ML IV ONE (12:00)
[2022-03-13] MEDS ORDERED: VANCOMYCIN 1 GM VIAL ONE (12:01)
[2022-03-13] MEDS ORDERED: PIPERACILLIN /TAZOBACTAM 3.375 G VIAL IV ONE (12:01)
--- NOTE | 2022-03-13 12:52 | NUR ---
ROOM GIVEN [phone]
--- NOTE | 2022-03-13 13:57 | NUR ---
REPORT GIVEN TO RAPHAEL FOR LAURA
--- NOTE | 2022-03-13 14:42 | NUR ---
PT DAVIDSNPORTED TO 3WEST TELE WITH ACLS PROTOCOLS IN PLACE ACCOMPANIED BY RT AND HANDED OFF TO ROXI LIM
--- NOTE | 2022-03-13 14:45 | NUR ---
CRATE LINER NOTES ADMITTED FROM ER REPORT GIVEN BY JEC RN. PATIENT EYES CLOSED, NON VERBAL. NO ACUTE DISTRESS NOTED. NO FACIAL GRIMACING NOTED. BREATHING UNLABORED. ON TRACHEOSTOMY AND VENTILATOR SET OF ORDERED SETTING. TELEMETRY PLACED READS SINUS RHYTHM ON MONITOR. GT TUBE ACCESS PATENT AND INTACT. SAFETY MEASURES IN PLACE. CALL LIGHT WITHIN REACH. WILL CONTINUE TO MONITOR ACCORDINGLY.
[2022-03-13 15:15] LABS: BAND % (MANUAL) 16 % (0.0-5.0); EOSINOPHILS % (MANUAL) 6 % (0-4); LYMPHOCYTES % (MANUAL) 6 % (16-48); METAMYELOCYTES % 1 % (0-0); MONOCYTES % (MANUAL) 5 % (0-11.0); MYELOCYTES % 1 % (0-0); NEUTROPHILS % (MANUAL) 65 (42-76)
[2022-03-13 16:00] VITALS: BP 88/50
[2022-03-13] MEDS ORDERED: HYDROCODONE/APAP 5/325MG TABLET PO PRN (16:00)
[2022-03-13] MEDS ORDERED: IV 1/2NS 1000 ML 1,000 ML IV PRN (16:00)
[2022-03-13] MEDS ORDERED: ZOLPIDEM TARTRATE 5 MG TABLET PO PRN (16:00)
[2022-03-13] MEDS ORDERED: MAGNESIUM HYDROXIDE 30 ML UDC PO PRN (16:00)
[2022-03-13] MEDS ORDERED: ONDANSETRON HCL/PF 4 MG/2 ML VIAL IVP PRN (16:00)
[2022-03-13] MEDS ORDERED: MAG HYDROX/AL HYDROX/SIMETH 30 ML UDC PO PRN (16:00)
[2022-03-13] MEDS ORDERED: ACETAMINOPHEN 325 MG TABLET PO PRN ×2 (16:00→17:00)
[2022-03-13] MEDS ORDERED: Z GUARD REMEDY 4 OZ OINT TP PRN (16:00)
[2022-03-13 16:45] VITALS: BP 92/52
--- NOTE | 2022-03-13 16:49 | NUR ---
PLANOGRAPH OPERATOR NOTES PATIENT SEEN AND EVALUATED BY DR HARTLEY , AWARE OF WOUND ON THEN TRACH WITH MINIMAL BLEEDING AND BLEEDING FROM THE NOSE. MADE AWARE THAT SBP IS ON THE 90'S WITH NEW ORDER TO CHANGE IVF TO NS 75MLS/HR , CLARIFIED WITH MD REGARDING TUBE FEEDING TO RESUME , PER DR TATE RESUMGiovanna TUBE FEEDING TOMORROW NEEDS DIETARY CONSULT AND MAY GIVE MEDICATIONS ON G TUBE, ORDER CLARIFIED AND READ BACK WITH MD, NOTED AND CARRIED OUT.
[2022-03-13] MEDS ORDERED: ACETAMINOPHEN ES 500 MG TABLET GT PRN (17:00)
[2022-03-13] MEDS ORDERED: HYDROCODONE/APAP 5/325MG TABLET GT PRN (17:00)
[2022-03-13] MEDS ORDERED: ALBUTEROL FS 2.5 MG/0.5 ML VIAL.NEB NEB PRN (17:00)
[2022-03-13] MEDS ORDERED: MAGNESIUM HYDROXIDE 30 ML UDC GT PRN (17:00)
[2022-03-13] MEDS ORDERED: [UNRECOGNIZED DRUG - OTHER] GT SCH (17:00)
[2022-03-13] MEDS ORDERED: NA PHOS,M-B/NA PHOS,DI-BA 1 EA ENEMA RC PRN (17:00)
[2022-03-13] MEDS ORDERED: LACTOSE FREE FOOD GT SCH (17:00)
[2022-03-13] MEDS ORDERED: FIBER GT SCH (17:00)
[2022-03-13] MEDS ORDERED: IPRATROPIUM NEB FS 0.5 MG/2.5 ML AMPUL.NEB NEB PRN (17:00)
[2022-03-13] MEDS ORDERED: BISACODYL SUPP (10 MG) 10 MG/SUPP.RECT SUPP.RECT RC PRN (17:00)
[2022-03-13] MEDS ORDERED: Medication Not On Formulary EA (Ipratropium/Albuterol Sulfate (Combivent Respimat 20-100 INH PRN (17:00)
[2022-03-13] MEDS: IV NS 0.9% 1,000 ML IV PRN (17:24)
[2022-03-13] MEDS: CHLORHEXIDINE GLUCONATE 15 ML UDC MM SCH (17:24)
[2022-03-13] MEDS: ZOSYN IVPB 3.375 G in IV D5W 50ml IV SCH ×2 (17:24→23:18)
[2022-03-13] MEDS: INSULIN NPH/REG 70/30 MIX INJ 100 UNIT/ML VIAL SQ SCH (17:49)
--- NOTE | 2022-03-13 17:50 | NUR ---
DRIVER OPERATOR NOTES HELD INSULIN PATIENT G TUBE FEEDING ON HOLD AT THIS TIME
--- NOTE | 2022-03-13 17:57 | NUR ---
RT Pt placed on vent settings provided by transport team. Pt tolerating current settings wells. Moderate to large amount of blood leaking from stoma, no blood suctioned from airway. Trach tube secure and patent. Ambu bag at bedside. No SOB noted. Will continue to monitor.
[2022-03-13] MEDS ORDERED: Medication Not On Formulary EA (Ipratropium/Albuterol Sulfate (Combivent Respimat 20-100 INH SCH (18:00)
--- NOTE | 2022-03-13 19:00 | NUR ---
BARREL LATHE OPERATOR NOTES PATIENT BED EYES CLOSED OCCASIONALLY MOVES EYES, NON VERBAL. NO ACUTE DISTRESS NOTED. NO FACIAL GRIMACING NOTED. BREATHING UNLABORED. ON TRACHEOSTOMY AND VENTILATOR SET OF ORDERED SETTING. TELEMETRY PLACED READS SINUS RHYTHM ON MONITOR. GT TUBE ACCESS PATENT AND INTACT. HEAD OF BED ELEVATED. SAFETY MEASURES IN PLACE. NEEDS ATTENDED AND ANTICIPATED CALL LIGHT WITHIN REACH. WILL ENDORSE TO NIGHT NURSE FOR CONTINUITY OF CARE Addendum: 03/13/22 at 1909 by SUSANNA DE LUNA RN DISREGARD ABOVE NOTES-ERROR
[2022-03-13 20:00] VITALS: BP 80/40
--- NOTE | 2022-03-13 20:00 | NUR ---
B/P 80/40 HR 73 NSR on the monitor bleeding from the right nostril moderate amount trach dressing with bloody drainage notified the MD Wang about the BP 80/40 HR 73 and about The POLST in the chart that reads DNR new orders received Status now DNR and Bolus LR statred Hands cool to touch and swollen pitting IV ga 20 right hand working and IV inner right arm working arms elevated trach dressing changed as well as the dressing right nostril gauze appliend to catch the drainage Charge nurse aware latest BP 84/51 HR 73
[2022-03-13 20:30] VITALS: BP 84/51
[2022-03-13] MEDS ORDERED: IV LR 500 ML IV ONE (20:30)
[2022-03-13] MEDS: ALBUTEROL FS 2.5 MG/0.5 ML VIAL.NEB NEB SCH (21:01)
[2022-03-13] MEDS: IPRATROPIUM NEB FS 0.5 MG/2.5 ML AMPUL.NEB NEB SCH (21:01)
[2022-03-13] MEDS: GUAIFENESIN LA 600 MG TABLET.SA PO SCH (21:25)
[2022-03-13 22:00] VITALS: BP 84/48
--- NOTE | 2022-03-13 22:30 | NUR ---
MD Angeles at the bedside to see the patient instructed to give additional 500ml LR bolus bladder scan done 17ml seen in bladder patient is urinating incontinent noted the swelling in hand going done since having them elevated from the start of the shift
[2022-03-14] VITALS (11 sets, daily range): BP systolic 81–106; BP diastolic 44–64
[2022-03-14] MEDS: IPRATROPIUM NEB FS 0.5 MG/2.5 ML AMPUL.NEB NEB SCH ×4 (01:25→20:00)
[2022-03-14] MEDS: ALBUTEROL FS 2.5 MG/0.5 ML VIAL.NEB NEB SCH ×4 (01:25→20:00)
--- NOTE | 2022-03-14 04:55 | NUR ---
Closing Notes: eyes open when touched but no foucus made moderate amount bleeding from the mouth and the right nostril, his head is tilted to the right. MD Wang saw the patient last night after I notified him the B/P was in the 80's gave in 1000ml LR bolus thru the night. Blood pressure remains in the 80"s ant times drops to the high 70"s. NSR on the tele monintor. swelling in the hand has decreased d/t having them elevated thru the night. Status is DNR Condom cath place and working Gt flushed w/o problem
[2022-03-14] MEDS: ZOSYN IVPB 3.375 G in IV D5W 50ml IV SCH ×3 (05:30→17:25)
--- NOTE | 2022-03-14 07:30 | NUR ---
RN OPENING NOTE PATIENT AWAKE IN BED RESTING, EYES OPEN, NON VERBAL. BLEEDING FROM MOUTH AND NOSE (RIGHT NOSTRIL), HIS HEAD IS TILTED TO THE RIGHT. NO S/S OF PAIN NOTED AT THIS TIME. ON VENT, TOLERATING SETTING WELL AT PRESCRIBED SETTINGS, NO DISTRESS NOTED. IV ACCESS R HAND, ANGELA #18G, INTACT, PATENT AND FLUSHING WELL. PATIENT WITH EXTERNAL INTERMEDIATE ACCOUNTANT WITH CURRENT READING OF SR, NO CARDIAC DISTRESS NOTED. FALL AND SAFETY MEASURES IN PLACE, BED ALARM ON BED IN LOW AND LOCK POSITION, CALL LIGHT AND TABLE WITHIN EASY REACH, SIDE RAILS UP X2. WILL CONTINUE TO MONITOR.
[2022-03-14 07:33] LABS: CHLORIDE 107 mmol/L (98-107); CREATININE 1.8 mg/dL (0.6-1.3); PHOSPHORUS 2.8 mg/dL (2.5-4.9); POTASSIUM 3.9 mmol/L (3.5-5.1); SODIUM SERUM 137 mmol/L (136-145); UREA NITROGEN, BLOOD 45 mg/dL (7-18)
[2022-03-14] MEDS: GUAIFENESIN LA 600 MG TABLET.SA PO SCH ×2 (08:54→21:06)
[2022-03-14] MEDS: DOCUSATE SODIUM 100 MG CAPSULE PO SCH (08:54)
[2022-03-14] MEDS: PANTOPRAZOLE 40 MG TABLET.DR PO SCH (08:54)
[2022-03-14] MEDS: CHLORHEXIDINE GLUCONATE 15 ML UDC MM SCH ×2 (08:54→17:25)
[2022-03-14] MEDS: FERROUS SULFATE UDC 300 MG/5 ML UDC GT SCH (08:54)
[2022-03-14] MEDS ORDERED: BUMETANIDE INJ 0.25 MG/ML VIAL IV SCH (09:00)
[2022-03-14] MEDS: INSULIN NPH/REG 70/30 MIX INJ 100 UNIT/ML VIAL SQ SCH ×2 (09:00→17:21)
[2022-03-14] MEDS ORDERED: IV NS 0.9% 500 ML BAG IV ONE (09:00)
--- NOTE | 2022-03-14 09:25 | NUR ---
RN NOTE PATIENT GLUCOSE IS 67, HIS 0900 SCHEDULE INSULIN WAS HELD. PATIENT HAVE A G-TUBE WAITING FOR DIETARY CONSULT.
[2022-03-14 09:33] LABS: BASOPHILS % (AUTO) 0.4 % (0.0-2.0); EOSINOPHILS % (AUTO) 2.8 % (0.0-6.0); LYMPHOCYTES # (AUTO) 0.3 K/uL (0.8-4.8); MEAN CORPUSCULAR HGB CONC 33 g/dl (31.0-36.0); MEAN CORPUSCULAR VOLUME 92 fL (80-96); MONOCYTES # (AUTO) 0.4 K/uL (0.1-1.30); MONOCYTES % (AUTO) 4.3 % (2.0-12.0); NEUTROPHILS # (AUTO) 8.2 K/uL (1.8-8.9); NEUTROPHILS % (AUTO) 89.5 % (43.0-81.0); PLATELET COUNT (AUTO) 148 K/uL (150-450); RED BLOOD CELL COUNT(AUTO) 2.02 MIL/uL (4.5-6.0); WHITE BLOOD COUNT (AUTO) 9.1 K/uL (4.3-11.0)
[2022-03-14 09:36] LABS: HEMATOCRIT 19 % (39-51); HEMOGLOBIN 6.1 g/dL (13.5-17.5)
--- NOTE | 2022-03-14 10:05 | NUR ---
WOUND CARE CONSULT: PT PRESENTS WITH WEEPING EDEMA TO LEFT UPPER EXTREMITY, SKIN TEAR TO LEFT ELBOW, SACRAL SCARRING, DRY WOUNDS TO ABDOMEN AND RT LATERAL KNEE, INTACT DEEP TISSUE INJURY TO LEFT HEEL AND LESION AROUND TRACH AREA WITH SOME BLEEDING, ALL PRESENT ON ADMISSION. SURGICAL CONSULT CALLED TO DR GOEL. RECOMMENDATIONS MADE FOR SKIN PROTECTION AND DISCUSSED WITH NURSING STAFF. FIRST STEP LOW AIRLOSS MATTRESS IS ON ORDER. IN AGREEMENT WITH PLAN OF CARE. Addendum: 03/14/22 at 1007 by ANDREW OLSONU Amended: Links added. Addendum: 03/14/22 at 1016 by ANDREW GOMEZ ADDITIONAL: THERE IS OPEN SKIN AREA OVER SACRAL SCARRING, PRESENT ON ADMISSION. DISCUSSED SKIN PROTECTION WITH NURSING STAFF.
[2022-03-14 11:04] LABS: CALCIUM, SERUM 9.4 mg/dL (8.5-10.1); CARBON DIOXIDE 17 mmol/L (21-32); MAGNESIUM 2.3 mg/dL (1.8-2.4)
[2022-03-14] MEDS: LEVOTHYROXINE SODIUM 100 MCG TABLET GT SCH (12:12)
[2022-03-14 12:16] LABS: GLUCOSE 70 mg/dL (74-106)
[2022-03-14] MEDS: GLUCERNA 1.2 1,000 ML BOTTLE NG PRN (12:20)
[2022-03-14] MEDS: VANCOMYCIN 1 GM in IV D5W 250ml IV SCH (13:25)
[2022-03-14 15:25] LABS: BAND % (MANUAL) 36 % (0.0-5.0); EOSINOPHILS % (MANUAL) 1 % (0-4); LYMPHOCYTES % (MANUAL) 6 % (16-48); METAMYELOCYTES % 2 % (0-0); MONOCYTES % (MANUAL) 4 % (0-11.0); MYELOCYTES % 2 % (0-0); NEUTROPHILS % (MANUAL) 49 (42-76)
--- NOTE | 2022-03-14 17:19 | NUR ---
RN NOTE PATIENT GLUCOSE IS 68, HIS 1800 SCHEDULE INSULIN WAS HELD. WILL CONTINUE TO MONITOR.
--- NOTE | 2022-03-14 19:10 | NUR ---
RN CLOSING NOTE PATIENT AWAKE IN BED RESTING, EYES OPEN, NON VERBAL. BLEEDING FROM MOUTH AND NOSE (RIGHT NOSTRIL), HIS HEAD IS TILTED TO THE RIGHT. NO S/S OF PAIN NOTED AT THIS TIME. ON VENT, TOLERATING SETTING WELL AT PRESCRIBED SETTINGS, NO DISTRESS NOTED. IV ACCESS R HAND, ANGELA #18G, FLEIX MIDLINE, INTACT, PATENT AND FLUSHING WELL. 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 FALL AND SAFETY MEASURES IN PLACE, BED ALARM ON BED IN LOW AND LOCK POSITION, CALL LIGHT AND TABLE WITHIN EASY REACH, SIDE RAILS UP X2. BLOOD TRANSFUSION STARTED AT 1840, VS TAKEN, STABLE, TOLERATING TRANSFUSION WELL. WILL ENDORSE TO CONTAINER WASHER.
--- NOTE | 2022-03-14 19:53 | NUR ---
RN OPENING NOTE PATIENT RECEIVED IN BED RESTING, EYES CLOSED, NON VERBAL. BLEEDING FROM MOUTH AND NOSE (RIGHT NOSTRIL), HIS HEAD IS TILTED TO THE RIGHT.PT ON BLOOD TRANSFUSION ON GOING.NO A/R NOTED.VITAL SIGN TAKING AND RECORDED.NO SOB/DISTRESS NOTED.ON VENT, TOLERATING SETTING WELL AT PRESCRIBED SETTINGS. IV ACCESS R HAND, ANGELA #18G, FELIX MIDLINE, INTACT, PATENT AND FLUSHING WELL. 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
[2022-03-15] VITALS: BP 105/57
[2022-03-15] MEDS: ZOSYN IVPB 3.375 G in IV D5W 50ml IV SCH ×5 (00:41→23:11)
[2022-03-15] MEDS: ALBUTEROL FS 2.5 MG/0.5 ML VIAL.NEB NEB SCH ×4 (01:43→19:50)
[2022-03-15] MEDS: IPRATROPIUM NEB FS 0.5 MG/2.5 ML AMPUL.NEB NEB SCH ×4 (01:43→19:51)
[2022-03-15 04:00] VITALS: BP 116/66
--- NOTE | 2022-03-15 06:35 | NUR ---
RN CLOSING NOTE PATIENT AWAKE IN BED RESTING, EYES OPEN, NON VERBAL. BLEEDING FROM MOUTH AND NOSE (RIGHT NOSTRIL), HIS HEAD IS TILTED TO THE RIGHT. NO S/S OF PAIN NOTED AT THIS TIME. ON VENT DEPENDENT MEGAN WELL.NO SIGN SOB/DISTRESS NOTED. IV ACCESS R HAND, ANGELA #18G, FELIX MIDLINE, INTACT, PATENT AND FLUSHING WELL. 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 FALL AND SAFETY MEASURES IN PLACE, BED ALARM ON BED IN LOW AND LOCK POSITION, CALL LIGHT AND TABLE WITHIN EASY REACH, SIDE RAILS UP X2. WILL ENDORSE TO SQL BI DEVELOPER.
[2022-03-15 07:22] LABS: BASOPHILS % (AUTO) 0.2 % (0.0-2.0); EOSINOPHILS % (AUTO) 1.6 % (0.0-6.0); HEMATOCRIT 23 % (39-51); HEMOGLOBIN 7.6 g/dL (13.5-17.5); LYMPHOCYTES # (AUTO) 0.1 K/uL (0.8-4.8); LYMPHOCYTES % (AUTO) 1.5 % (20.0-44.0); MEAN CORPUSCULAR HGB CONC 33 g/dl (31.0-36.0); MEAN CORPUSCULAR VOLUME 90 fL (80-96); MONOCYTES # (AUTO) 0.3 K/uL (0.1-1.30); MONOCYTES % (AUTO) 3.9 % (2.0-12.0); NEUTROPHILS % (AUTO) 92.8 % (43.0-81.0); PLATELET COUNT (AUTO) 136 K/uL (150-450); WHITE BLOOD COUNT (AUTO) 8.6 K/uL (4.3-11.0)
--- NOTE | 2022-03-15 07:30 | NUR ---
STOCK BROKER OPENING NOTE: RECEIVED PATIENT IN BED, ASLEEP,EASY TO AROUSE WITH STIMULI. ON SEMI CORONEL'S POSITION,POSITIONED COMFORTABLY. ON MECHANICAL VENT WITH CURRENT READING [id number],RATE 20, VT 500, FLOW 60, PEEP 5. ON WASH OPERATOR SINUS RHYTHM 77BPM. NO SOB OR NO CARDIAC DISTRESS NOTED. WITH IV ACCESS ON RIGHT HAND G#20, FELIX MIDLINE, ANGELA G#18 PATENT AND INTACT INFUSING NS 75ML/HR. WITH G-TUBE GLUCERNA 1.2 @30 CC. SAFETY PRECAUTIONARY MEASURES MAINTAINED: BED LOCKED AND IN LOWEST POSITION, SIDE RAILS UP X3. CALL LIGHT I EASY REACH FOR HELP/ASSISTANCE.
[2022-03-15 07:53] LABS: CALCIUM, SERUM 9.4 mg/dL (8.5-10.1); CARBON DIOXIDE 20 mmol/L (21-32); CHLORIDE 108 mmol/L (98-107); CREATININE 1.8 mg/dL (0.6-1.3); GLUCOSE 117 mg/dL (74-106); MAGNESIUM 2.2 mg/dL (1.8-2.4); PHOSPHORUS 3.9 mg/dL (2.5-4.9); POTASSIUM 3.3 mmol/L (3.5-5.1); SODIUM SERUM 136 mmol/L (136-145); UREA NITROGEN, BLOOD 41 mg/dL (7-18)
[2022-03-15 08:00] VITALS: BP 118/78
[2022-03-15] MEDS: DOCUSATE SODIUM 100 MG CAPSULE PO SCH (08:31)
[2022-03-15] MEDS: PANTOPRAZOLE 40 MG TABLET.DR PO SCH (08:31)
[2022-03-15] MEDS: FERROUS SULFATE UDC 300 MG/5 ML UDC GT SCH (08:31)
[2022-03-15] MEDS: GUAIFENESIN LA 600 MG TABLET.SA PO SCH ×2 (08:31→20:49)
[2022-03-15] MEDS: CHLORHEXIDINE GLUCONATE 15 ML UDC MM SCH ×2 (08:31→16:30)
[2022-03-15] MEDS: VITAMINS A AND D 56.7 GM TUBE TP SCH (08:34)
[2022-03-15] MEDS: INSULIN NPH/REG 70/30 MIX INJ 100 UNIT/ML VIAL SQ SCH ×2 (09:00→18:00)
--- NOTE | 2022-03-15 09:10 | NUR ---
RN NOTES: BS IS 82 MG/DL, INSULIN ON HOLD.
[2022-03-15] MEDS ORDERED: POTASSIUM CHLORIDE 20 MEQ POWDER PACKET NG SCH (10:00)
[2022-03-15] MEDS: LEVOTHYROXINE SODIUM 100 MCG TABLET GT SCH (11:24)
[2022-03-15 12:00] VITALS: BP 125/91
[2022-03-15] MEDS: IV NS 0.9% 1,000 ML IV PRN (12:01)
[2022-03-15] MEDS: VANCOMYCIN 1 GM in IV D5W 250ml IV SCH (12:45)
[2022-03-15 16:00] VITALS: BP 127/85
[2022-03-15] MEDS: VANCOMYCIN 0.75 GM in IV D5W 250 ML IV SCH (17:48)
--- NOTE | 2022-03-15 18:56 | NUR ---
INFORMATICS SPEC CLOSING NOTES: PATIENT IN BED, ASLEEP,EASY TO AROUSE WITH STIMULI. ON SEMI CORONEL'S POSITION. ON MECHANICAL VENT PRESCRIBED SETTINGS. ON BILL ADJUSTER SINUS RHYTHM 72BPM. NO SOB OR NO CARDIAC DISTRESS NOTED. WITH IV ACCESS ON RIGHT HAND G#20, FELIX MIDLINE, ANGELA G#18 PATENT AND INTACT INFUSING NS 75ML/HR. WITH G-TUBE GLUCERNA 1.2 @30 CC. SAFETY PRECAUTIONARY MEASURES MAINTAINED: BED LOCKED AND IN LOWEST POSITION, SIDE RAILS UP X3. CALL LIGHT I EASY REACH FOR HELP/ASSISTANCE. WILL ENDORSED TO CHIEF SCHOOL FINANCE OFFICER NURSE FOR CONTINUITY OF CARE.
--- NOTE | 2022-03-15 19:40 | NUR ---
TRIM MACHINE OPERATOR OPENING NOTE: RECEIVED PATIENT IN BED, ASLEEP,EASY TO AROUSE WITH STIMULI. ON SEMI CORONEL'S POSITION,POSITIONED COMFORTABLY. ON MECHANICAL VENT DEPENDENT.ON CARDIOVASCULAR PHYSICIAN ASSISTANT SINUS RHYTHM 75BPM. NO SIGN SOB/DISTRESS NOTED. WITH IV ACCESS ON RIGHT HAND G#20, FELIX MIDLINE, ANGELA G#18 PATENT AND INTACT INFUSING NS 75ML/HR. WITH G-TUBE GLUCERNA 1.2 @30 CC. SAFETY MEASURES MAINTAINED: BED LOCKED AND IN LOWEST POSITION, SIDE RAILS UP X3. CALL LIGHT WITHIN REACH.
[2022-03-15 20:00] VITALS: BP 119/63
[2022-03-16] VITALS: BP 112/57
[2022-03-16] MEDS: ALBUTEROL FS 2.5 MG/0.5 ML VIAL.NEB NEB SCH ×4 (01:20→19:50)
[2022-03-16] MEDS: IPRATROPIUM NEB FS 0.5 MG/2.5 ML AMPUL.NEB NEB SCH ×4 (01:20→19:51)
[2022-03-16 04:00] VITALS: BP 113/54
[2022-03-16] MEDS: ZOSYN IVPB 3.375 G in IV D5W 50ml IV SCH ×4 (05:06→23:15)
--- NOTE | 2022-03-16 06:21 | NUR ---
OBIEE REPORT DEVELOPER CLOSING NOTE: PATIENT IN BED WITH EYES CLOSED BUT EASY TO AROUSE WITH STIMULI. ON MECHANICAL VENT DEPENDENT MEGAN WELL,ON OUTSOLE CUTTER MACHINE SINUS RHYTHM 74BPM. NO SIGN SOB/DISTRESS NOTED. WITH IV ACCESS ON RIGHT HAND G#20, FELIX MIDLINE, ANGELA G#18 PATENT AND INTACT INFUSING NS 100ML/HR. WITH G-TUBE GLUCERNA 1.2 @30 CC.CALL LIGHT WITHIN REACH. SAFETY MEASURES MAINTAINED: BED LOCKED AND IN LOWEST POSITION, SIDE RAILS UP X3.WILL ENDORSED TO NEXT SHIFT.
[2022-03-16] MEDS: GLUCERNA 1.2 1,000 ML BOTTLE NG PRN (06:49)
[2022-03-16 07:08] LABS: BASOPHILS % (AUTO) 0.2 % (0.0-2.0); EOSINOPHILS % (AUTO) 2.5 % (0.0-6.0); HEMATOCRIT 24 % (39-51); LYMPHOCYTES # (AUTO) 0.2 K/uL (0.8-4.8); LYMPHOCYTES % (AUTO) 1.9 % (20.0-44.0); MEAN CORPUSCULAR HGB CONC 33 g/dl (31.0-36.0); MEAN CORPUSCULAR VOLUME 90 fL (80-96); MONOCYTES # (AUTO) 0.3 K/uL (0.1-1.30); MONOCYTES % (AUTO) 4.1 % (2.0-12.0); NEUTROPHILS # (AUTO) 7.6 K/uL (1.8-8.9); NEUTROPHILS % (AUTO) 91.3 % (43.0-81.0); PLATELET COUNT (AUTO) 142 K/uL (150-450); WHITE BLOOD COUNT (AUTO) 8.4 K/uL (4.3-11.0)
[2022-03-16 07:25] LABS: CALCIUM, SERUM 9.8 mg/dL (8.5-10.1); CARBON DIOXIDE 21 mmol/L (21-32); CHLORIDE 109 mmol/L (98-107); CREATININE 1.9 mg/dL (0.6-1.3); GLUCOSE 107 mg/dL (74-106); MAGNESIUM 2.2 mg/dL (1.8-2.4); PHOSPHORUS 4.1 mg/dL (2.5-4.9); POTASSIUM 3.7 mmol/L (3.5-5.1); SODIUM SERUM 139 mmol/L (136-145); UREA NITROGEN, BLOOD 37 mg/dL (7-18)
--- NOTE | 2022-03-16 07:30 | NUR ---
MEDIA SERVICES COORDINATOR OPENING NOTE: RECEIVED PATIENT IN BED, ASLEEP,EASY TO AROUSE WITH STIMULI. ON SEMI CORONEL'S POSITION,POSITIONED COMFORTABLY. ON MECHANICAL VENT W/ MD PRESCRIBED SETTINGS. ON SERGING MACHINE OPERATOR AUTOMATIC SINUS RHYTHM 78BPM. NO SOB OR NO CARDIAC DISTRESS NOTED. WITH IV ACCESS ON RIGHT HAND G#20, FELIX MIDLINE, ANGELA G#18 PATENT AND INTACT INFUSING NS 100 ML/HR. WITH G-TUBE GLUCERNA 1.2 @30 CC. SAFETY PRECAUTIONARY MEASURES MAINTAINED: BED LOCKED AND IN LOWEST POSITION, SIDE RAILS UP X3. CALL LIGHT I EASY REACH FOR HELP. KEPT RESTED AND COMFORTABLE.
--- NOTE | 2022-03-16 07:30 | NUR ---
TAILOR MEN'S READY TO WEAR OPENING NOTE: RECEIVED PATIENT IN BED, ASLEEP,EASY TO AROUSE WITH STIMULI. ON SEMI CORONEL'S POSITION,POSITIONED COMFORTABLY. ON MECHANICAL VENT WITH MD PRESCRIBED ORDER. ON MEDICAL BILLING MANAGER SINUS RHYTHM 78BPM. NO SOB OR NO CARDIAC DISTRESS NOTED. WITH IV ACCESS ON RIGHT HAND G#20, FELIX MIDLINE, ANGELA G#18 PATENT AND INTACT INFUSING NS 75ML/HR. WITH G-TUBE GLUCERNA 1.2 @30 CC. SAFETY PRECAUTIONARY MEASURES MAINTAINED: BED LOCKED AND IN LOWEST POSITION, SIDE RAILS UP X3. CALL LIGHT I EASY REACH FOR HELP/ASSISTANCE.
[2022-03-16] MEDS: PANTOPRAZOLE 40 MG TABLET.DR PO SCH (07:45)
--- NOTE | 2022-03-16 07:55 | NUR ---
WOUND CARE CONSULT: RECEIVED CONSULT FOR RT POSTERIOR NECK RAISED OPEN LESION. DEFER TO SURGICAL TEAM CURRENTLY ON CASE. DISCUSSED SKIN PROTECTION WITH NURSING STAFF.
[2022-03-16 08:00] VITALS: BP 132/91
[2022-03-16] MEDS: FERROUS SULFATE UDC 300 MG/5 ML UDC GT SCH (08:16)
[2022-03-16] MEDS: CHLORHEXIDINE GLUCONATE 15 ML UDC MM SCH ×2 (08:16→16:37)
[2022-03-16] MEDS: GUAIFENESIN LA 600 MG TABLET.SA PO SCH (08:16)
[2022-03-16] MEDS: DOCUSATE SODIUM 100 MG CAPSULE PO SCH (08:16)
[2022-03-16] MEDS: INSULIN NPH/REG 70/30 MIX INJ 100 UNIT/ML VIAL SQ SCH ×2 (09:00→18:00)
--- NOTE | 2022-03-16 09:00 | NUR ---
RN NOTES: BS 82MG/DL, INSULIN 70/30 NOT GIVEN.
[2022-03-16] MEDS: VITAMINS A AND D 56.7 GM TUBE TP SCH (09:15)
[2022-03-16] MEDS: LEVOTHYROXINE SODIUM 100 MCG TABLET GT SCH (11:35)
[2022-03-16 13:15] LABS: BAND % (MANUAL) 11 % (0.0-5.0); LYMPHOCYTES % (MANUAL) 3 % (16-48); MONOCYTES % (MANUAL) 4 % (0-11.0); NEUTROPHILS % (MANUAL) 82 (42-76)
[2022-03-16] MEDS: VANCOMYCIN 0.75 GM in IV D5W 250 ML IV SCH (17:00)
--- NOTE | 2022-03-16 18:35 | NUR ---
NURSING HOME PHYSICIAN CLOSING NOTES: PATIENT IN BED RESTING EASY TO AROUSE WITH STIMULI. ON SEMI CORONEL'S POSITION,POSITIONED COMFORTABLY. ON MECHANICAL VENT W/ MD PRESCRIBED SETTINGS. ON FILM RENTAL CLERK SINUS RHYTHM 82 BPM. NO SOB OR NO CARDIAC DISTRESS NOTED. WITH IV ACCESS ON RIGHT HAND G#20, FELIX MIDLINE, ANGELA G#18 PATENT AND INTACT INFUSING NS 100 ML/HR. WITH G-TUBE GLUCERNA 1.2 @30 CC. SAFETY PRECAUTIONARY MEASURES MAINTAINED: BED LOCKED AND IN LOWEST POSITION, SIDE RAILS UP X3. TURNED AND REPOSITIONED Q 2HRS AND PRN. CALL LIGHT I EASY REACH FOR HELP. KEPT RESTED AND COMFORTABLE. WILL ENDORSE TO PROJECT RESERVOIR ENGINEER NURSE FOR CONTINUITY OF CARE.
--- NOTE | 2022-03-16 19:23 | NUR ---
STUDENT WORKER OPENING NOTES RECEIVED PT LYING IN BED WITH EYES CLOSED, RESPONSIVE TO LIGHT PAIN. NOT IN APPARENT DISTRESS. NO SIGNS OF PAIN OR DISCOMFORT NOTED. ON MECHANICAL VENT W/ MD PRESCRIBED SETTINGS. ON TELE MONITOR READING SINUS RHYTHM WITH PAC AT 76 BPM. HAS THE FF IV ACCESS: RIGHT HAND G#20, ANGELA G#18 AND FELIX MIDLINE WITH NS RUNNING AT 100 ML/HR. NO S/S OF INFILTRATION NOTED. WITH G-TUBE FEEDING OF GLUCERNA 1.2 RUNNING AT 30 ML/HR. HAS CONDOM CATHETER DRAINING CLEAR YELLOW URINE VIA GRAVITY. SAFETY PRECAUTIONS IN PLACE. WILL CONTINUE PLAN OF CARE.
--- NOTE | 2022-03-16 19:51 | NUR ---
HOLLI DIANE NOTES CALLED PX RE: MUCINEX 1200 MG TAB, WE CAN'T CRUSH AND PT IS ON G-TUBE. NOTIFIED FIORELLA PERES TO GET ANOTHER PRESCRIPTION. Addendum: 03/16/22 at 2020 by March RHONDA DIANE D/C MUCINEX. NEW ORDER ROBITUSSIN 5 ML Q6H PRN
[2022-03-16 20:00] VITALS: BP 111/55
[2022-03-16] MEDS ORDERED: GUAIFENESIN/D-METHORPHAN HB 5 ML UDC GT PRN (20:30)
--- NOTE | 2022-03-16 20:45 | NUR ---
DOCUMENTATION CLERK NOTES ADMINISTER PRN ROBITUSSIN, COUGHING AND THICK SECRETION NOTED.
[2022-03-16] MEDS: IV NS 0.9% 1,000 ML IV PRN (22:47)
[2022-03-17] VITALS: BP 104/53
[2022-03-17] MEDS: ALBUTEROL FS 2.5 MG/0.5 ML VIAL.NEB NEB SCH ×4 (01:31→20:01)
[2022-03-17] MEDS: IPRATROPIUM NEB FS 0.5 MG/2.5 ML AMPUL.NEB NEB SCH ×4 (01:31→20:01)
[2022-03-17 04:00] VITALS: BP 103/52
[2022-03-17] MEDS: ZOSYN IVPB 3.375 G in IV D5W 50ml IV SCH ×3 (05:42→17:10)
[2022-03-17 06:21] LABS: CALCIUM, SERUM 9.3 mg/dL (8.5-10.1); CARBON DIOXIDE 21 mmol/L (21-32); CHLORIDE 110 mmol/L (98-107); CREATININE 1.9 mg/dL (0.6-1.3); GLUCOSE 101 mg/dL (74-106); MAGNESIUM 2.1 mg/dL (1.8-2.4); PHOSPHORUS 4.3 mg/dL (2.5-4.9); POTASSIUM 3.7 mmol/L (3.5-5.1); SODIUM SERUM 140 mmol/L (136-145); UREA NITROGEN, BLOOD 34 mg/dL (7-18)
[2022-03-17 06:25] LABS: BASOPHILS % (AUTO) 0.2 % (0.0-2.0); EOSINOPHILS % (AUTO) 1.6 % (0.0-6.0); HEMATOCRIT 24 % (39-51); HEMOGLOBIN 7.8 g/dL (13.5-17.5); LYMPHOCYTES # (AUTO) 0.1 K/uL (0.8-4.8); LYMPHOCYTES % (AUTO) 1.6 % (20.0-44.0); MEAN CORPUSCULAR HGB CONC 33 g/dl (31.0-36.0); MEAN CORPUSCULAR VOLUME 91 fL (80-96); MONOCYTES # (AUTO) 0.4 K/uL (0.1-1.30); MONOCYTES % (AUTO) 4.4 % (2.0-12.0); NEUTROPHILS # (AUTO) 7.8 K/uL (1.8-8.9); NEUTROPHILS % (AUTO) 92.2 % (43.0-81.0); PLATELET COUNT (AUTO) 127 K/uL (150-450); RED BLOOD CELL COUNT(AUTO) 2.63 MIL/uL (4.5-6.0); WHITE BLOOD COUNT (AUTO) 8.4 K/uL (4.3-11.0)
--- NOTE | 2022-03-17 07:00 | NUR ---
SURGICAL SERVICES ASST CLOSING NOTES PT LYING IN BED COMFORTABLY, AROUSED BY LIGHT PAIN. OPENS EYES. BREATHING EVEN AND NON-LABORED. ON MECHANICAL VENT W/ MD PRESCRIBED SETTINGS. NO PAIN OR DISCOMFORT NOTED. ON TELE MONITOR READING SINUS RHYTHM WITH PAC AT 65 BPM. HAS THE FF IV ACCESS: RIGHT HAND #20G, LEFT UPPER ARM MIDLINE AND RIGHT UPPER ARM #18G WITH NS RUNNING AT 100 ML/HR. INTACT, PATENT AND FLUSHING. WITH G-TUBE FEEDING OF GLUCERNA 1.2 RUNNING AT 30 ML/HR. UNABLE TO INCREASE FEEDING D/T 30 ML RESIDUAL. HAS CONDOM CATHETER DRAINING CLEAR YELLOW URINE VIA GRAVITY. ALL NEEDS ATTENDED. KEPT DRY AND COMFORTABLE. SAFETY PRECAUTIONS IN PLACE: BED LOW AND LOCKED, SIDE RAILS UP X3, CALL LIGHT WITHIN REACH.
--- NOTE | 2022-03-17 07:30 | NUR ---
GLOBAL TECHNICAL WRITER OPENING NOTES RECEIVED PATIENT LYING IN BED SLEEPING COMFORTABLY, AROUSED BY LIGHT PAIN. OPENS EYES. BREATHING EVEN AND NON-LABORED. ON MECHANICAL VENT W/ MD PRESCRIBED SETTINGS. NO PAIN OR DISCOMFORT NOTED. ON TELE MONITOR READING SINUS RHYTHM WITH PAC AT 65 BPM. HAS THE FF IV ACCESS: RIGHT HAND #20G, LEFT UPPER ARM MIDLINE AND RIGHT UPPER ARM #18G WITH NS RUNNING AT 100 ML/HR. INTACT, PATENT AND FLUSHING. WITH G-TUBE FEEDING OF GLUCERNA 1.2 RUNNING AT 30 ML/HR. HAS CONDOM CATHETER DRAINING CLEAR YELLOW URINE VIA GRAVITY. SAFETY PRECAUTIONS IN PLACE: BED LOW AND LOCKED, SIDE RAILS UP X3, CALL LIGHT WITHIN REACH. WILL CONTINUE TO MONITOR FOR LAURA.
[2022-03-17 08:00] VITALS: BP 105/45
[2022-03-17] MEDS: INSULIN NPH/REG 70/30 MIX INJ 100 UNIT/ML VIAL SQ SCH ×2 (09:00→17:04)
--- NOTE | 2022-03-17 09:00 | NUR ---
COUNSELOR DORMITORY NOTES INSULIN NON ADMIN, BS 97.
[2022-03-17 09:46] LABS: BAND % (MANUAL) 26 % (0.0-5.0); EOSINOPHILS % (MANUAL) 2 % (0-4); LYMPHOCYTES % (MANUAL) 4 % (16-48); MONOCYTES % (MANUAL) 4 % (0-11.0); MYELOCYTES % 1 % (0-0); NEUTROPHILS % (MANUAL) 63 (42-76)
[2022-03-17] MEDS: FERROUS SULFATE UDC 300 MG/5 ML UDC GT SCH (09:52)
[2022-03-17] MEDS: CHLORHEXIDINE GLUCONATE 15 ML UDC MM SCH ×2 (09:52→16:10)
[2022-03-17] MEDS: PANTOPRAZOLE 40 MG TABLET.DR PO SCH (09:53)
[2022-03-17] MEDS: DOCUSATE SODIUM 100 MG CAPSULE PO SCH (09:53)
[2022-03-17] MEDS: VITAMINS A AND D 56.7 GM TUBE TP SCH (10:04)
[2022-03-17] MEDS: LEVOTHYROXINE SODIUM 100 MCG TABLET GT SCH (12:10)
[2022-03-17] MEDS: IV NS 0.9% 1,000 ML IV PRN (13:23)
[2022-03-17 16:00] VITALS: BP 124/57
--- NOTE | 2022-03-17 16:30 | NUR ---
PHOTOGRAPHY EDITOR NOTES PT SEEN AND EXAMINED BY DR. TATE, INFORMED MD THAT PT IS SATURATING BETWEEN 85-90% ON 50% FI02, PT NOT IN DISTRESS, ORDERS GIVEN.
--- NOTE | 2022-03-17 17:05 | NUR ---
REGIONAL SALES LEADER NOTES BS 122 INSULIN NON ADMIN
[2022-03-17] MEDS: VANCOMYCIN 0.75 GM in IV D5W 250 ML IV SCH (18:12)
[2022-03-17] MEDS: GLUCERNA 1.2 1,000 ML BOTTLE NG PRN (18:12)
--- NOTE | 2022-03-17 18:33 | NUR ---
SENIOR PRODUCT MARKETING MANAGER NOTES PT IN BED, EYES CLOSED, EASY TO AROUSE, ABLE TO OPEN EYES, NON VERBAL, IV FLUIDS INFUSING WELL, GT FEEDING INFUSING WELL, PM MEDS GIVEN ORDERED, PM CARE PROVIDED, STILL WITH SOME ORAL AND NECK BLEEDING, MD AWARE, REPOSITIONED FOR COMFORT, KEPT CLEAN AND DRY.
--- NOTE | 2022-03-17 19:30 | NUR ---
RN NOTES RECEIVED PATIENT SLEEPING BUT AROUSABLE TO PAINFUL STIMULI, VENT DEPENDENT, SR ON TELE MONITOR HR-64, NOT IN DISTRESS, NOTICED PT. STILL BLEEDING . NO PAIN NOTED, G-TUBE FEEDING RUNNING @ 30ML/HR, PT IS ON CONDOM CATH DRAINING CLOUDY URINE, PT IS TOLERATING FAIRLY, SIDERAILSUPX2, WILL CONTINUE TO MONITOR
[2022-03-17 20:00] VITALS: BP_SYST 105; BP_SYST 125; BP_DIAS 60
[2022-03-18] VITALS: BP 116/62
[2022-03-18] MEDS: ZOSYN IVPB 3.375 G in IV D5W 50ml IV SCH ×4 (00:03→17:10)
[2022-03-18] MEDS: ALBUTEROL FS 2.5 MG/0.5 ML VIAL.NEB NEB SCH ×4 (02:09→20:04)
[2022-03-18] MEDS: IPRATROPIUM NEB FS 0.5 MG/2.5 ML AMPUL.NEB NEB SCH ×4 (02:09→20:04)
[2022-03-18 05:03] VITALS: BP 109/57
[2022-03-18] MEDS: IV NS 0.9% 1,000 ML IV PRN (05:08)
--- NOTE | 2022-03-18 06:24 | NUR ---
RN NOTES SLEEPING BUT AROUSABLE TO PAILFUL STIMULI, O2 SAT STILL FLUCTUATING, RT KEEP TITRATING THE FIO2, NOT IN DISTRESS, MORNING CARE RENDERED, SIDERAILSUPX2, PT. NEEDS ATTENDED
[2022-03-18 06:41] LABS: BASOPHILS % (AUTO) 0.1 % (0.0-2.0); EOSINOPHILS % (AUTO) 0.9 % (0.0-6.0); HEMATOCRIT 26 % (39-51); HEMOGLOBIN 8.5 g/dL (13.5-17.5); LYMPHOCYTES # (AUTO) 0.1 K/uL (0.8-4.8); LYMPHOCYTES % (AUTO) 1.2 % (20.0-44.0); MEAN CORPUSCULAR HGB CONC 32 g/dl (31.0-36.0); MEAN CORPUSCULAR VOLUME 91 fL (80-96); MONOCYTES # (AUTO) 0.3 K/uL (0.1-1.30); MONOCYTES % (AUTO) 2.7 % (2.0-12.0); NEUTROPHILS # (AUTO) 9.4 K/uL (1.8-8.9); NEUTROPHILS % (AUTO) 95.1 % (43.0-81.0); PLATELET COUNT (AUTO) 117 K/uL (150-450); WHITE BLOOD COUNT (AUTO) 9.8 K/uL (4.3-11.0)
[2022-03-18 07:18] LABS: CARBON DIOXIDE 20 mmol/L (21-32); CHLORIDE 110 mmol/L (98-107); CREATININE 1.9 mg/dL (0.6-1.3); GLUCOSE 148 mg/dL (74-106); MAGNESIUM 2.3 mg/dL (1.8-2.4); PHOSPHORUS 5.4 mg/dL (2.5-4.9); POTASSIUM 3.8 mmol/L (3.5-5.1); SODIUM SERUM 141 mmol/L (136-145); UREA NITROGEN, BLOOD 35 mg/dL (7-18)
--- NOTE | 2022-03-18 07:31 | NUR ---
RN OPENING NOTES Patient seen comfortably lying in bed, no shortness of breath, no apparent distress noted, breathing even and unlabored, no grimacing. Call light left within reach, safety precautions in place, brakes locked, side rails up X 2.
[2022-03-18 08:00] VITALS: BP 109/58
[2022-03-18] MEDS: PANTOPRAZOLE 40 MG/PACK PACK GT SCH (08:36)
[2022-03-18] MEDS: CHLORHEXIDINE GLUCONATE 15 ML UDC MM SCH ×2 (08:36→17:10)
[2022-03-18] MEDS: DOCUSATE SODIUM 100 MG CAPSULE PO SCH (08:36)
[2022-03-18] MEDS: FERROUS SULFATE UDC 300 MG/5 ML UDC GT SCH (08:36)
[2022-03-18] MEDS: VITAMINS A AND D 56.7 GM TUBE TP SCH (08:36)
[2022-03-18] MEDS: INSULIN NPH/REG 70/30 MIX INJ 100 UNIT/ML VIAL SQ SCH ×2 (08:40→18:39)
[2022-03-18 09:10] LABS: BAND % (MANUAL) 40 % (0.0-5.0); LYMPHOCYTES % (MANUAL) 4 % (16-48); MONOCYTES % (MANUAL) 2 % (0-11.0); MYELOCYTES % 1 % (0-0); NEUTROPHILS % (MANUAL) 53 (42-76)
[2022-03-18] MEDS: LEVOTHYROXINE SODIUM 100 MCG TABLET GT SCH (12:19)
[2022-03-18 16:00] VITALS: BP 114/67
--- NOTE | 2022-03-18 17:11 | NUR ---
RT Patient received on FIO2 60% due to episodes of desaturation. Planned to titrate back down to 50% but patient unable to keep SPO2 above 88%. Monitored throughout shift. Pt SPO2 around 88% on FIO2 60%. RN Filomena jack.
[2022-03-18 18:11] LABS: ABG BASE EXCESS -7.8 mmol/L; ABG OXYGEN SATURATION 77.7 % (92.0-98.5); ABG PCO2 46.8 mmHg (35.0-45.0); ABG PH 7.233 (7.350-7.450); ABG PO2 47.4 mmHg (75.0-100.0); AaDO2 328.9 mmHg; COHb 0.5 % (0.5-1.5); MetHb 0.2 % (0.0-1.5); O2Hb 77.2 % (94.0-97.0); SITE, ABG Left Radial; VENT MODE, BG AC 500 20 60% +5
--- NOTE | 2022-03-18 18:35 | NUR ---
RT ABG done. PEEP increased to +10 and FIO2 50% per Dr. Alicia.
--- NOTE | 2022-03-18 18:54 | NUR ---
RN CLOSING NOTES Patient lying in bed, no shortness of breath, and no apparent distress noted, breathing even and unlabored, remained afebrile during shift, no grimacing noted at this time. Patient noted to have minimal amount of oral and trach site bleeding, no unusual drainage noted, aspiration precautions rendered at all times, no unusual bruising at this time. Gtube remained in place, patent and intact, placement verified via auscultation and aspiration of gastric contents. All due medications via gtube per MD order, tolerated well. Patient has an order for gtube feeding (Glucerna 1.2 with goal rate of 65ml/hr), running 35 ml/hr, tolerating rate at this time, no nausea, no vomiting during shift, no diarrhea, abdominal bowel sounds present in all quadrants, no grimacing when abdomen palpated. No s/s of hypo/hyperglycemia at this time, no tremors. Condom catheter draining clear yellowish urine free from any sediments, no hematuria, and no unusual odor noted in urine, no grimacing when bladder palpated, bladder non distended during shift. Patient has an order for IV antibiotics, tolerating well, infusing well on his left upper arm midline, site covered with dry dressings, intact and flushing well, no redness, no swelling noted, no s/s of infiltration at this time. Aspiration precaution observed at all times, kept clean and dry, all needs anticipated, safety precautions in place, brakes locked, frequent repositioning done, side rails up X 2, call light left within reach.
[2022-03-18] MEDS: FUROSEMIDE 40 MG/4 ML VIAL IV SCH (18:58)
--- NOTE | 2022-03-18 19:35 | NUR ---
RN NOTES RECEIVED PATIENT ONE BED, NON-VERBAL, OPEN EYES, VENT DEPENDENT , SB ON TELE MONITOR HR-59, G-TUBE FEEDING RUNNING @ 35ML/HR, PATIENT IS TOLERATING FAIRLY, ON CONDOM CATH, BUE EDEMA, BED IN LOCKED POSITION, SIDERAILSUPX2, WILL CONTINUE TO MONITOR
[2022-03-18 20:00] VITALS: BP 114/51
[2022-03-19] VITALS (49 sets, daily range): BP systolic 81–130; BP diastolic 37–103
[2022-03-19] MEDS: ZOSYN IVPB 3.375 G in IV D5W 50ml IV SCH ×4 (00:03→18:00)
[2022-03-19] MEDS: FUROSEMIDE 40 MG/4 ML VIAL IV SCH (01:00)
[2022-03-19] MEDS: IPRATROPIUM NEB FS 0.5 MG/2.5 ML AMPUL.NEB NEB SCH ×4 (02:02→20:03)
[2022-03-19] MEDS: ALBUTEROL FS 2.5 MG/0.5 ML VIAL.NEB NEB SCH ×4 (02:02→20:03)
[2022-03-19] MEDS: GLUCERNA 1.2 1,000 ML BOTTLE NG PRN (03:37)
--- NOTE | 2022-03-19 05:30 | NUR ---
RN NOTES PATIENT IS NOT TOLERATING PRESENT FIO2, INCREASED IT TO 100%, STAT ABG'S WAS DONE . PER RT'S RECOMMENDATION TO KEEP IT AT 100% FOR THE MEANTIME, CHARGE NURSE MAD AWARE
[2022-03-19 06:29] LABS: ABG BASE EXCESS -8.5 mmol/L; ABG OXYGEN SATURATION 80.5 % (92.0-98.5); ABG PCO2 52.2 mmHg (35.0-45.0); ABG PH 7.189 (7.350-7.450); ABG PO2 51.4 mmHg (75.0-100.0); AaDO2 609.4 mmHg; COHb 0.6 % (0.5-1.5); MetHb 0.2 % (0.0-1.5); O2Hb 79.9 % (94.0-97.0); PEEP,BG 10 cm H2O; SITE, ABG Left Radial; VT, ABG 500 mL
[2022-03-19 06:31] LABS: BASOPHILS % (AUTO) 0.3 % (0.0-2.0); EOSINOPHILS % (AUTO) 0.5 % (0.0-6.0); HEMATOCRIT 26 % (39-51); HEMOGLOBIN 8.4 g/dL (13.5-17.5); LYMPHOCYTES # (AUTO) 0.1 K/uL (0.8-4.8); LYMPHOCYTES % (AUTO) 1.2 % (20.0-44.0); MEAN CORPUSCULAR HGB CONC 33 g/dl (31.0-36.0); MEAN CORPUSCULAR VOLUME 91 fL (80-96); MONOCYTES # (AUTO) 0.1 K/uL (0.1-1.30); MONOCYTES % (AUTO) 1.8 % (2.0-12.0); NEUTROPHILS # (AUTO) 7.3 K/uL (1.8-8.9); NEUTROPHILS % (AUTO) 96.2 % (43.0-81.0); PLATELET COUNT (AUTO) 96 K/uL (150-450); RED BLOOD CELL COUNT(AUTO) 2.81 MIL/uL (4.5-6.0); WHITE BLOOD COUNT (AUTO) 7.6 K/uL (4.3-11.0)
[2022-03-19 06:51] LABS: CALCIUM, SERUM 10.2 mg/dL (8.5-10.1); CARBON DIOXIDE 20 mmol/L (21-32); CHLORIDE 108 mmol/L (98-107); CREATININE 2.2 mg/dL (0.6-1.3); GLUCOSE 95 mg/dL (74-106); MAGNESIUM 2.1 mg/dL (1.8-2.4); PHOSPHORUS 6.1 mg/dL (2.5-4.9); POTASSIUM 3.8 mmol/L (3.5-5.1); SODIUM SERUM 139 mmol/L (136-145); UREA NITROGEN, BLOOD 37 mg/dL (7-18)
--- NOTE | 2022-03-19 06:56 | NUR ---
RN NOTES O2 SAT STILL FLUCTUATING, MD WAS AWARE SINCE YESTERDAY, TO TITRATE FI02, WILL FOLLOW-UP AGAIN , MORNING CARE RENDERED, NOT IN DISTRESS, NO PAIN NOTED, PT. NEEDS ATTENDED
--- NOTE | 2022-03-19 07:48 | NUR ---
RN NOTES RT AT BEDSIDE. AWARE OF RESPIRATORY CONDITION/SITUATION.
[2022-03-19] MEDS: VITAMINS A AND D 56.7 GM TUBE TP SCH (08:32)
[2022-03-19] MEDS: CHLORHEXIDINE GLUCONATE 15 ML UDC MM SCH ×2 (08:32→16:41)
[2022-03-19] MEDS: FERROUS SULFATE UDC 300 MG/5 ML UDC GT SCH (08:33)
[2022-03-19] MEDS: DOCUSATE SODIUM 100 MG CAPSULE PO SCH (08:33)
[2022-03-19] MEDS: PANTOPRAZOLE 40 MG/PACK PACK GT SCH (08:33)
[2022-03-19] MEDS: INSULIN NPH/REG 70/30 MIX INJ 100 UNIT/ML VIAL SQ SCH ×2 (08:39→18:00)
[2022-03-19 09:07] LABS: BAND % (MANUAL) 40 % (0.0-5.0); EOSINOPHILS % (MANUAL) 1 % (0-4); LYMPHOCYTES % (MANUAL) 5 % (16-48); METAMYELOCYTES % 2 % (0-0); MONOCYTES % (MANUAL) 4 % (0-11.0); MYELOCYTES % 2 % (0-0); NEUTROPHILS % (MANUAL) 46 (42-76)
[2022-03-19] MEDS: LEVOTHYROXINE SODIUM 100 MCG TABLET GT SCH (10:46)
--- NOTE | 2022-03-19 11:47 | NUR ---
RN NOTES PATIENT SEEN BY DR. TATE AT BEDSIDE; MADE AWARE OF PATIENT'S CONDITION. PER MD, SHE TRIED TO CONTACT PATIENT'S BUT UNABLE TO SPEAK W/ HER.
--- NOTE | 2022-03-19 12:21 | NUR ---
RN NOTES BP-82/39, HR-56 ON TELE MONITOR.
[2022-03-19] MEDS ORDERED: NOREPINEPHRINE 32 MG in IV NS 0.9% 218 ML IV PRN (12:30)
--- NOTE | 2022-03-19 12:39 | NUR ---
RN NOTES 3W HEAD MIXER INFORMED ICU HEAD MIXER OF POSSIBLE ICU TRANSFER.
[2022-03-19] MEDS ORDERED: NOREPINEPHRINE 8 MG in IV NS 0.9% 242 ML IV PRN (13:00)
--- NOTE | 2022-03-19 13:27 | NUR ---
RN NOTES PATIENT TRANSFERRED TO ICU AT ROOM 258 VIA GURNEY, ACCOMPANIED BY 2 RN'S AND 1 RT; TRANSFERRED VIA ACLS PROTOCOL. BEDSIDE ENDORSEMENT GIVEN TO ABDULLAHI HAND MICA PLATE LAYER. ICU OPEN CLAIMS REPRESENTATIVE AWARE.
--- NOTE | 2022-03-19 13:30 | NUR ---
ICU/RN PT TRANSFERRED FROM TELE UNIT ,PT IS DNR CODE STATUS.PER DR ARROYO AND DR TATE.BP 90/39.PT IS CHRONIC TRACH ON THE VENT AC MODE,FIO2-100%, PEEP-10.SAT O2-75%. T-90.1F .PT HAS LARYNGEAL CA .TRACH SIDE HAS BIG WOUND WITH BLOODY DISCHARGE.PT RESPONSE ON PAIN STIMULATION. BILATERAL ARMS MIDLINE.F/C INSERTED ORDERED. LEVOPHED DRIP STARTED ORDERED.BUMEX 2 MG IV ORDERED.G-TUBE CLAMPED.PT IS ON [facility] .REPOSITION FOR COMFORT. CONTINUE MONITORING.
--- NOTE | 2022-03-19 13:35 | NUR ---
RN NOTES T-90.1F, CHECKED RECTALLY, PATIENT ON LEWIS HUGGER.
[2022-03-19] MEDS ORDERED: BUMETANIDE INJ 0.25 MG/ML VIAL IV ONE (14:00)
[2022-03-19] MEDS ORDERED: VANCOMYCIN 500 MG in IV D5W 100ml IV SCH (18:00)
[2022-03-19] MEDS ORDERED: INSULIN REGULAR, HUMAN 100 UNIT/ML 3 ML VIAL SQ PRN (18:30)
[2022-03-19] MEDS ORDERED: DEXTROSE 50%-WATER 50 ML DISP.SYRIN IV PRN (18:30)
--- NOTE | 2022-03-19 18:33 | NUR ---
RN NOTES BS-92 MG/DL NO COVERAGE GIVEN, T--93.5F, URINE OUTPUT IS 20ML, PATIENT BLEEDING FROM TRACHEA SIDE, INFUSING LEVOPHED 0.1 MCG/KG/MIN. PATIENT DNR. ASSIST TURN AND REPOSTION Q 2 HR. WILL FOLLOW UP. ENDORSED ONCOMING NURSE LAURA.
[2022-03-19] MEDS: NOREPINEPHRINE 8 MG in IV NS 0.9% 242 ML IV PRN ×2 (18:44→23:29)
--- NOTE | 2022-03-19 21:00 | NUR ---
ICU/DISABILITIES CAREGIVER CALLED SENIOR PROFESSIONAL SERVICES CONSULTANT JAYNA GEE FOR SOMETHING TO HELP CALM PT DOWN , PTS RESPIRATIONS ARE IN THE 30'S. CURRENTLY PT IS ON LEVO FOR BP. ORDER WAS RECIEVED FOR ONE TIME DOSE OF FENTANYL 25MCG AND DIPRIVAN TO TITRATE. CHARGE NURSE MADE AWARE OF THIS.
[2022-03-19] MEDS ORDERED: FENTANYL PF 100MCG/2ML AMPUL IV ONE (21:30)
[2022-03-19] MEDS: PROPOFOL 100 ML IV PRN (21:54)
--- NOTE | 2022-03-19 22:00 | NUR ---
ICU/MANAGER ARCHITECTURE FENTANYL 25MCG WAS GIVEN TIMES ONE. DIPRIVAN TO TITRATE WAS STARTED BY BAKERY ASSOCIATE NURSE AND WILL BE TITRATED UP BY BAKERY ASSOCIATE NURSE.
[2022-03-20] VITALS (45 sets, daily range): BP systolic 52–104; BP diastolic 27–72
[2022-03-20] MEDS: ZOSYN IVPB 3.375 G in IV D5W 50ml IV SCH ×2 (00:02→05:20)
[2022-03-20] MEDS: BLOOD SUGAR DIAGNOSTIC 1 EACH STRIP IN SCH ×2 (00:14→05:40)
[2022-03-20] MEDS: ALBUTEROL FS 2.5 MG/0.5 ML VIAL.NEB NEB SCH ×2 (01:16→06:42)
[2022-03-20] MEDS: IPRATROPIUM NEB FS 0.5 MG/2.5 ML AMPUL.NEB NEB SCH ×2 (01:16→06:42)
[2022-03-20] MEDS ORDERED: NOREPINEPHRINE 8MG/250ML RTU 250 ML IV ONE (03:31)
[2022-03-20] MEDS: NOREPINEPHRINE 8 MG in IV NS 0.9% 242 ML IV PRN ×2 (04:06→07:34)
--- NOTE | 2022-03-20 04:08 | NUR ---
ICU/AUTOMOTIVE MANUFACTURER TOOK OUT MED FROM [facility] DUE TO DRUG TITRATION. HAD ALREADY GONE THROUGH 1 BAG WHICH WAS IN BOX. WILL MONITOR THIS PT.
[2022-03-20 04:17] LABS: BASOPHILS # (AUTO) 0.1 K/uL (0.0-0.2); BASOPHILS % (AUTO) 0.3 % (0.0-2.0); EOSINOPHILS % (AUTO) 0.8 % (0.0-6.0); HEMATOCRIT 25 % (39-51); LYMPHOCYTES # (AUTO) 0.1 K/uL (0.8-4.8); LYMPHOCYTES % (AUTO) 0.6 % (20.0-44.0); MEAN CORPUSCULAR HGB CONC 32 g/dl (31.0-36.0); MEAN CORPUSCULAR VOLUME 92 fL (80-96); MONOCYTES # (AUTO) 0.2 K/uL (0.1-1.30); MONOCYTES % (AUTO) 0.8 % (2.0-12.0); NEUTROPHILS # (AUTO) 19.2 K/uL (1.8-8.9); NEUTROPHILS % (AUTO) 97.5 % (43.0-81.0); PLATELET COUNT (AUTO) 149 K/uL (150-450); WHITE BLOOD COUNT (AUTO) 19.7 K/uL (4.3-11.0)
[2022-03-20 04:25] LABS: CALCIUM, SERUM 9.1 mg/dL (8.5-10.1); CARBON DIOXIDE 22 mmol/L (21-32); CHLORIDE 108 mmol/L (98-107); CREATININE 2.6 mg/dL (0.6-1.3); GLUCOSE 93 mg/dL (74-106); MAGNESIUM 2.3 mg/dL (1.8-2.4); PHOSPHORUS 5.9 mg/dL (2.5-4.9); POTASSIUM 3.8 mmol/L (3.5-5.1); SODIUM SERUM 141 mmol/L (136-145); UREA NITROGEN, BLOOD 44 mg/dL (7-18)
[2022-03-20 04:34] LABS: BAND % (MANUAL) 3 % (0.0-5.0)
[2022-03-20 04:35] LABS: LYMPHOCYTES % (MANUAL) 3 % (16-48); MONOCYTES % (MANUAL) 1 % (0-11.0)
[2022-03-20 04:36] LABS: NEUTROPHILS % (MANUAL) 93 (42-76)
[2022-03-20] MEDS: PROPOFOL 100 ML IV PRN (05:20)
--- NOTE | 2022-03-20 07:42 | NUR ---
RN OPENING NOTE PATIENT RECEIVED IN BED, SEDATED. PATIENT WITH TRACHEOSTOMY TUBE AND MECHANICAL VENT WITH FOI2 100% AND PEEP OF 10. GTUBE IN PLACE, NPO AT THIS TIME. RIGHT UA MIDLINE, LEFT UA MIDLINE AND RIGHT HAND 18G IV IN PLACE RUNNING LEVO AT 0.6 MCG/KG/MIN, DIPRIVAN AT 30MCG/KG/MIN AND NS TKO, BP 92/62 ON BEDSIDE MONITOR. BED LOCKED AND IN LOWEST POSITION, CALL LIGHT WITHIN REACH, 3 SIDE RAILS UP.
[2022-03-20] MEDS: INSULIN NPH/REG 70/30 MIX INJ 100 UNIT/ML VIAL SQ SCH (08:16)
--- NOTE | 2022-03-20 08:16 | NUR ---
RN NOTE BLOOD SUGAR 76 AT 0815. SCHEDULED INSULIN HELD.
[2022-03-20] MEDS: DOCUSATE SODIUM 100 MG CAPSULE PO SCH (08:19)
[2022-03-20] MEDS: CHLORHEXIDINE GLUCONATE 15 ML UDC MM SCH (08:20)
[2022-03-20] MEDS: VITAMINS A AND D 56.7 GM TUBE TP SCH (08:20)
[2022-03-20] MEDS: FERROUS SULFATE UDC 300 MG/5 ML UDC GT SCH (08:20)
[2022-03-20] MEDS: PANTOPRAZOLE 40 MG/PACK PACK GT SCH (08:20)
[2022-03-20] MEDS ORDERED: IV NS 0.9% 1,000 ML IV ONE (09:00)
[2022-03-20] MEDS ORDERED: NOREPINEPHRINE 32 MG in IV NS 0.9% 218 ML IV PRN (10:30)
[2022-03-20] MEDS ORDERED: CEFEPIME 1 GM in IV D5W 50 ML IV SCH (10:30)
--- NOTE | 2022-03-20 10:59 | NUR ---
NO CARDIAC ACTIVITY NOTED ON MONITOR, NO APICAL PULSES AUSCULTATED AFTER 2 MINUTES, NO PULSES PALPATED, NO BLOOD PRESSURE, NO SPONTANEOUS RESPIRATIONS NOTED, PT PRONOUNCED AT 1059. PRIOR TO PT PASSING AWAY PT'S WAS NOTIFIED THAT PATIENT WAS DECLINING QUICKLY AND IS A DNR. STATED SHE WILL BE ON HER WAY SOON SHE CAN GET A RIDE.
[2022-03-20] MEDS ORDERED: CEFEPIME 2 GM in IV D5W 100 ML IV SCH (12:00)
[2022-03-20] MEDS ORDERED: MEROPENEM 500 MG in IV NS 0.9% 50 ML IV SCH (14:00)
== END 2022-03-20 16:12 | DRG 207 ==
LOC: ER 09:52 → TRANSITION 12:45 → TELE 13:17 → ICU 03-19 12:47
PROVIDERS: ADMIT Student in an Organized Health Care Education/Training Program; ATTEND Nurse Practitioner Acute Care
PROC: 5A1955Z Respiratory Ventilation, Greater than 96 Consecutive Hours (ICD-10-PCS; principal; 2022-03-13)
PROC: 30233N1 Transfusion of Nonautologous Red Blood Cells into Peripheral Vein, Percutaneous Approach (ICD-10-PCS; 2022-03-14)
PROC: 05HC33Z Insertion of Infusion Device into Left Basilic Vein, Percutaneous Approach (ICD-10-PCS; 2022-03-14)
DX: J95.01 Hemorrhage from tracheostomy stoma (principal); J15.6 Pneumonia due to other Gram-negative bacteria; N17.0 Acute kidney failure with tubular necrosis; R53.2 Functional quadriplegia; A41.9 Sepsis, unspecified organism; J96.22 Acute and chronic respiratory failure with hypercapnia; J96.21 Acute and chronic respiratory failure with hypoxia; G93.41 Metabolic encephalopathy; R65.21 Severe sepsis with septic shock; J95.851 Ventilator associated pneumonia; J44.0 Chronic obstructive pulmonary disease with (acute) lower respiratory infection; C34.90 Malignant neoplasm of unspecified part of unspecified bronchus or lung; Z99.11 Dependence on respirator [ventilator] status; D68.59 Other primary thrombophilia; R04.2 Hemoptysis; I48.20 Chronic atrial fibrillation, unspecified; J81.1 Chronic pulmonary edema; Y84.8 Other medical procedures as the cause of abnormal reaction of the patient, or of later complication, without mention of misadventure at the time of the procedure; Y92.129 Unspecified place in nursing home as the place of occurrence of the external cause; Z20.822 Contact with and (suspected) exposure to COVID-19; E03.9 Hypothyroidism, unspecified; Z79.4 Long term (current) use of insulin; C32.9 Malignant neoplasm of larynx, unspecified; D69.6 Thrombocytopenia, unspecified; E11.9 Type 2 diabetes mellitus without complications; D63.8 Anemia in other chronic diseases classified elsewhere; E88.09 Other disorders of plasma-protein metabolism, not elsewhere classified; L89.626 Pressure-induced deep tissue damage of left heel; L85.3 Xerosis cutis; M20.41 Other hammer toe(s) (acquired), right foot; M20.42 Other hammer toe(s) (acquired), left foot; R13.10 Dysphagia, unspecified; Z66 Do not resuscitate; M62.562 Muscle wasting and atrophy, not elsewhere classified, left lower leg; M62.561 Muscle wasting and atrophy, not elsewhere classified, right lower leg; X58.XXXA Exposure to other specified factors, initial encounter; Y92.9 Unspecified place or not applicable; E86.0 Dehydration; I95.9 Hypotension, unspecified; E87.6 Hypokalemia; I11.0 Hypertensive heart disease with heart failure; I50.9 Heart failure, unspecified; S51.012A Laceration without foreign body of left elbow, initial encounter; Y95 Nosocomial condition; Z87.891 Personal history of nicotine dependence; Z79.01 Long term (current) use of anticoagulants; Z79.899 Other long term (current) drug therapy
CPT/HCPCS: 31720; 36410; 36415; 36600; 71045-TC; 76770-TC; 80048-TC; 80076-TC; 80202-TC; 82803-TC; 82962-TC; 83605-TC; 83735-TC; 84100-TC; 84439-TC; 84443-TC; 85025-TC; 85730-TC; 86850-TC; 87040-TC; 94002-TC; 94003-TC; 94762-TC; 94799-TC; A4623; A6253; A7526; C9803; G0378; J0692; J1815; J1940; J1956; J2185; J2543; J3010; J3370; J3490; J7030; J7040; J7042; J7050; J7060; J7120; P9016